=== PATIENT | female | born 1970 | race American Indian/Alaskan Native ===

== ENCOUNTER 2023-09-22 12:06 | Emergency (ER) | payer OTHER ==
[~2023-09-22] VITALS: Ht 167.6 cm; Wt 56.0 kg
[2023-09-22] MEDS ORDERED: GABAPENTIN300 MG PO (13:23)
[2023-09-22 15:26] VITALS: BP 109/79
== END 2023-09-22 15:27 | disposition home or self-care (01) ==
LOC: ED 12:06
DX: S93.402A Sprain of unspecified ligament of left ankle, initial encounter (principal); X50.9XXA Other and unspecified overexertion or strenuous movements or postures, initial encounter; Z79.899 Other long term (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
CPT/HCPCS: 73610; 99283

== ENCOUNTER 2023-11-21 22:07 | Emergency (ER) | payer OTHER ==
[~2023-11-21] VITALS: Ht 167.6 cm; Wt 44.3 kg
[~2023-11-21 22:07] MED LIST: GABAPENTIN300 MG PO
[2023-11-21] MEDS ORDERED: ALBUTEROL/IPRATROPIUM 3 ML NEB INH ONE (22:15)
[2023-11-21] MEDS ORDERED: methylPREDNISolone SOD SUCC 125 MG/2 ML VIAL IV ONE (22:15)
[2023-11-21] MEDS ORDERED: ondansetron HCL 4 MG/2 ML VIAL IV ONE (22:15)
[2023-11-21 22:25] LABS: BASOPHILS 1.2 % (0-2); EOSINOPHILS 1.6 % (0-6); HEMATOCRIT 30.8 % (35.0-50.0); HEMOGLOBIN 9.9 g/dL (12.0-18.0); LYMPHOCYTES 21.1 % (24-44); MCH 27.7 (27-36); MCHC 32.1 g/dl (30-36); MCV 86.3 fl (81-99); MONOCYTES 9.4 % (0-12); NEUTROPHILS 66.7 % (39-80); PLATELET COUNT 424 K/uL (140-440); RBC 3.57 M/ul (4.3-5.7); RDW 16.9 (10.5-15.0)
[2023-11-21 22:47] LABS: ALBUMIN 3.1 g/dL (3.4-5.0); ALBUMIN/GLOBULIN RATIO 0.91 (1.1-2.4); ANION GAP 16.5 (7-21); BILIRUBIN, TOTAL 1.1 ng/dL (0.2-1.0); BUN/CREATININE RATIO 11.34 (6.0-28.6); CALCIUM 8.4 mg/dL (8.5-10.1); CREATININE, SERUM 1.41 mg/dL (0.55-1.02); POTASSIUM 4.5 mmol/L (3.5-5.1); PROTEIN, TOTAL 6.5 g/dL (6.4-8.2)
[2023-11-22] MEDS ORDERED: FUROSEMIDE 20 MG/2 ML VIAL IV ONE (00:15)
[2023-11-22] MEDS ORDERED: LASIX20 MG PO (00:18)
[2023-11-22 00:31] VITALS: BP 124/96
== END 2023-11-22 01:25 | disposition home or self-care (01) ==
LOC: ED 22:07
PROVIDERS: Family Medicine
DX: I50.9 Heart failure, unspecified (principal); J44.9 Chronic obstructive pulmonary disease, unspecified; F17.200 Nicotine dependence, unspecified, uncomplicated
CPT/HCPCS: 36415; 71045; 80053; 83690; 83880; 85025; 94640; 96374; 96375; 99285-25; J1940; J2405; J2919; U0002

== ENCOUNTER 2023-12-07 14:33 | Inpatient (IN) | payer OTHER ==
[~2023-12-07] VITALS: Ht 167.6 cm; Wt 41.5 kg
[~2023-12-07 14:33] MED LIST changes: +LASIX20 MG PO
--- OUTSIDE RECORDS SUMMARY | 2023-12-07 14:34 | XMS ---
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 Josy has no Care Guidelines for this patient. Won VISIT COUNT (12 MO.) [facility] T[facility] NOTE: Visits indicate total known visits. [place] [place] [facility] COMPLAINT: - TROUBLE BREATHING 11/21/2023 22:08 K[facility]ISSA Powell [place] TYPE: Emergency COMPLAINT: - ABDOMINAL PAIN DIAGNOSES: - Chronic obstructive pulmonary disease, unspecified - Heart failure, unspecified - Nicotine dependence, unspecified, uncomplicated - Unspecified abdominal pain 09/22/2023 12:07 KARISSA Powell [place] TYPE: Emergency COMPLAINT: - LEFT LEG INJURY DIAGNOSES: - Other and unspecified overexertion or strenuous movements or postures, initial encounter - 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
[2023-12-07] MEDS ORDERED: NITROGLYCERIN 0.4 MG SUBL SL PRN (15:00)
[2023-12-07 15:07] LABS: EOSINOPHILS 0.6 % (0-6); HEMOGLOBIN 10.6 g/dL (12.0-18.0); MCH 26.8 (27-36); MCHC 32.1 g/dl (30-36); MCV 83.6 fl (81-99); MONOCYTES 6.4 % (0-12); PLATELET COUNT 346 K/uL (140-440); RBC 3.95 M/ul (4.3-5.7); RDW 17.5 (10.5-15.0)
[2023-12-07 15:18] LABS: INR 1.16 (0.80-1.30); PROTIME 14.4 Sec (11.2-14.2)
[2023-12-07 15:20] LABS: PARTIAL THROMBOPLASTIN TIME 29.7 Sec (22.9-41.3)
[2023-12-07 15:35] LABS: ALBUMIN 3.1 g/dL (3.4-5.0); ALBUMIN/GLOBULIN RATIO 0.89 (1.1-2.4); ANION GAP 14.4 (7-21); BILIRUBIN, TOTAL 1.4 ng/dL (0.2-1.0); BUN/CREATININE RATIO 16.19 (6.0-28.6); CALCIUM 8.7 mg/dL (8.5-10.1); CREATININE, SERUM 1.05 mg/dL (0.55-1.02); POTASSIUM 4.4 mmol/L (3.5-5.1); PROTEIN, TOTAL 6.6 g/dL (6.4-8.2)
[2023-12-07] MEDS ORDERED: methylPREDNISolone SOD SUCC 125 MG/2 ML VIAL IV ONE (17:00)
[2023-12-07] MEDS ORDERED: ALBUTEROL/IPRATROPIUM 3 ML NEB INH ONE ×2 (17:00→17:45)
[2023-12-07] MEDS ORDERED: FUROSEMIDE 40 MG/4 ML VIAL IV ONE (19:15)
[2023-12-07] MEDS ORDERED: ENOXAPARIN SODIUM 40 MG/0.4 ML SYR SUB-Q SCH (20:22)
[2023-12-07] MEDS ORDERED: ACETAMINOPHEN 500 MG TAB PO PRN (20:30)
[2023-12-07] MEDS ORDERED: ondansetron HCL 4 MG/2 ML VIAL IV PRN (20:30)
[2023-12-07] MEDS ORDERED: MELATONIN 3 MG TAB PO PRN (21:00)
--- NOTE | 2023-12-07 21:43 | NUR ---
pt ARRIVED TO MS FLOOR AT THIS TIME, ADMISSION COMPLETE AND pt RESTING IN BED, BED ALARM ON AND CALL LIGHT IN REACH. FAMILY IN ROOM AND PREPARING TO LEAVE FOR THE NIGHT- pt DENIES ADDITIONAL NEEDS OR CONCERNS. DR GAMA NOW IN ROOM AND ASSESSING pt.
--- NOTE | 2023-12-07 21:43 | NUR ---
REPORT RECEIVED FROM ED RN. PATIENT TRANSFERED FROM TO BED WITH 1 PA STAND BY ASSIST. no REPORTS OF SOB AT THIS TIME. PATIENT VSS. FAMILY AT BEDSIDE.
[2023-12-07 21:44] VITALS: BP 115/83; BP 117/82
--- NOTE | 2023-12-07 22:37 | NUR ---
call light answered, prn zofran given-see emar. ayla in room to help pt to bsc.
[2023-12-07] MEDS ORDERED: TRAZODONE HCL 50 MG TAB PO PRN (22:45)
--- NOTE | 2023-12-07 22:55 | NUR ---
PATIENT RESTIN IN BED, REPORTS PAIN IN CHEST 2/10 AT THIS TIME. PATIENT REPORTS PAIN IN CHEST IS TOLLERABLE AND "ONLY BOTHERS ME WHEN I COUGH." SKIN INTACT, TATTOO NOTED TO LEFT FOREARM. LUNG SUNDS WITH CRACKLES NOTED IN LEFT UPPER LOBE, DIMINISHED THOUGHOUT. RESPIRATORY DRIVE IS EVEN AND UNLABORED. BOWEL TONES ACITVE X 4. REPORTS LAST BM WAS TODAY IN EMERGENCY ROOM. NO NOTED EDEMA UPON ASSESSMENT. NO FURTHER NEEDS AT THIS TIME, CALL LIGHT WITHIN REACH.
--- NOTE | 2023-12-07 23:35 | NUR ---
CALL LIGHT ANSWERED. PT NEEDED TO USE BATHROOM. WRINKLE CHASER SBA PT TO BSC. PT VOIDED AND WAS ASSISTED BACK TO BED. OUTPUT MEASURED AND PT STATES NO FURTHER NEEDS AT THIS TIME. CALL LIGHT WITHIN REACH AND BED ALARM ON.
[2023-12-08] VITALS (9 sets, daily range): BP systolic 101–111; BP diastolic 68–78
--- NOTE | 2023-12-08 01:27 | NUR ---
MEDICAL REVIEW SPECIALIST OBTAINED VITALS AND I&O. PT STATES NO FURTHER NEEDS AT THIS TIME. CALL LIGHT WITHIN REACH.
--- NOTE | 2023-12-08 02:01 | NUR ---
CALL LIGHT ANSWERED. PATIENT ASSISTED TO BSC 1PA ASSIST. TOLLERATED WELL. REPORTS, " MY BREATHING IS BETTER." PATIENT VOIDING QUANITY SUFFICIENT. NO FURTHER NEEDS AT THIS TIME. CALL LIGHT WITHIN REACH.
--- NOTE | 2023-12-08 02:05 | NUR ---
PATIENT'S MEWS SCORE INDICATED MD SHOULD BE NOTIFIED OF VITALS. MD AWARE OF PATIENT'S TACHYCARDIA, MD WAS ON UNIT EARILER IN SHIFT UPON ADMIT TO ASSESS PATIENT. NO CHANGES NOTED TO VITALS SENSE ADMIT TO THIS UNIT.
--- NOTE | 2023-12-08 03:55 | NUR ---
PATIENT RESTING IN BED WITH EYES CLOSED. RESPRIATIONS EVEN AND UNLABORED. CALL LIGHT WITHIN REACH. BED ALARM ON.
[2023-12-08 05:33] LABS: BASOPHILS 1.1 % (0-2); HEMATOCRIT 34.2 % (35.0-50.0); HEMOGLOBIN 10.9 g/dL (12.0-18.0); LYMPHOCYTES 18.9 % (24-44); MCH 26.3 (27-36); MCHC 31.9 g/dl (30-36); MCV 82.4 fl (81-99); MONOCYTES 2.1 % (0-12); NEUTROPHILS 77.9 % (39-80); PLATELET COUNT 376 K/uL (140-440); RBC 4.15 M/ul (4.3-5.7); RDW 17.2 (10.5-15.0)
[2023-12-08 05:43] LABS: ANION GAP 15.8 (7-21); BUN/CREATININE RATIO 16.66 (6.0-28.6); CALCIUM 9.2 mg/dL (8.5-10.1); CREATININE, SERUM 1.2 mg/dL (0.55-1.02); MAGNESIUM 2.2 mg/dL (1.8-2.4); POTASSIUM 4.8 mmol/L (3.5-5.1)
--- NOTE | 2023-12-08 06:04 | NUR ---
PATIENT RESTING IN BED WITH EYES CLOSED. RESPIRATIONS EVEN AND UNLABORED. LUNG SOUNDS CORASE WITH CRACKLES NOTED IN UPPER LOBES, DIMINISHED LOWER LOBES. PATIENT DENIES ANY SOB AT THIS ITME. WORK OF BREATHING APPEARS TO BE WNL. PATIENT VSS, HR REMAINS TACHY. DENIES ANY CHEST PAIN AT THIS TIME. FRESH ICE WATER REQUESTED, FRESH ICE WATER GIVEN. CALL LIGHT WITHIN REACH, BED ALARM ON.
--- NOTE | 2023-12-08 06:58 | NUR ---
Pt report received from ELIZABETH Sears. Pt is in bed, supine, A&O x4. White board updated. Pt denies needs at this time. Side rails up, bedside table in reach, call light in reach.
[2023-12-08] MEDS ORDERED: ALBUTEROL SULFATE 0.042% 1.25 MG/3 ML VIAL INH PRN (07:45)
--- NOTE | 2023-12-08 08:36 | NUR ---
In with pt for assessment. SBA pt up to BSC to void. Instructed pt on how to collect a clean urine specimen. Pt verbalized understanding of how to collect. Pt was advised that ECHO would be here at 0915. Pt states that her medical records can be located at [facility] in [place], not [facility]. Pt provided with an orange juice for now. Pt has a dry sounding cough. LCTA but dim in RLL. Call light in reach.
--- NOTE | 2023-12-08 08:46 | NUR ---
MEDICAL RECORDS REQUESTED FROM [facility] [place] AT THIS TIME
[2023-12-08 08:51] LABS: BILIRUBIN, URINE NEGATIVE (negative); BLOOD/HGB, URINE NEGATIVE (Negative); KETONE, URINE NEGATIVE (Negative); LEUK ESTERASE, URINE NEGATIVE (negative); NITRITE, URINE NEGATIVE (negative)
[2023-12-08 08:58] LABS: BACTERIA, URINE 4+ /hpf (negative); CASTS, URINE NONE SEEN \\lpf; COLLECTION TYPE, URINE CLEAN CATCH; CRYSTALS, URINE NONE SEEN (0-1+); EPITHELIAL CELLS, URINE SQUAMOUS 2+ /lpf (0-1+); RED BLOOD CELLS, URINE 0-1 /hpf (0-5); REFLEX CULTURE, URINE No (No)
[2023-12-08] MEDS ORDERED: FUROSEMIDE 40 MG/4 ML VIAL IV SCH (09:00)
--- NOTE | 2023-12-08 09:39 | NUR ---
CHARGE NURSE CRISTELA TOBIN PASSED ON MY CONCERN ABOUT NO TELE ON THIS PT TO DR. GAMA WHO OKAY'D AN ORDER FOR TELE FOR HER.
--- NOTE | 2023-12-08 09:54 | NUR ---
UR CLINICAL REVIEW: [facility] [place] INPT FOR HEARTFAILURE BASIC DMAP (STATE MEDICAID) INPT 12/07/23 @ 2021 ORDER MATCHES STATUS AUTH PENDING, WILL SEND REQUIRED CLINICALS VIA RIGHTFAX PLAN TO DC HOME WHEN STABLE 12/10/23
--- NOTE | 2023-12-08 10:23 | NUR ---
tele #1 placed on pt
--- NOTE | 2023-12-08 11:51 | NUR ---
MED REC COMPLETE
[2023-12-08] MEDS ORDERED: PHARMACY RENAL DOSE ADJUSTMENT 1 DOSE MISC PO SCH (12:00)
--- NOTE | 2023-12-08 12:29 | EKG ---
[facility] [address] [place], [place] [address] Signed Sinus tachycardia with fusion complexes Possible Left atrial enlargement Right bundle branch block Left posterior fascicular block Bifascicular block Abnormal ECG No previous ECGs available Confirmed by Mathew Gama MD ([id number]) on 12/08/2023 12:29:14 PM Electronically Signed By: MATHEW GAMA DO 12/08/23 1229 PATIENT NAME: HERMES RING JESSICA Electrocardiogram DATE OF : 66 PHYSICIAN: MATHEW GAMA DO REPORT #: [id number] REPORT IS CONFIDENTIAL AND NOT TO BE RELEASED WITHOUT AUTHORIZATION
--- NOTE | 2023-12-08 13:30 | NUR ---
Spoke with Debbie. She states she is from [facility], but is also [place]. She now lives here with her daughter and is enrolled with [employer]. They live in an apartment and pt states she does not use any DME. Their is a shower bench in her daughters shower. Pt denies issues getting in or out of the home. Daughter has a child and is and due any day now. Pt concerned this is a "poor time for her to be in the hospital". She does state she needs a walker as it is getting difficult for her to walk any distance. She states she easily becomes sob. She is interested in filing for disability and told her how to do so on line. She states she can do this on her phone. Let her know she will need to go through her pcp. Pt states she has financial issues and gets food stamps. She states they run out of food monthly. She is unsure if she qualifies for commodities through the [employer]. I will check with for a walker and the [employer] if she qualifies. She denies other needs.
[2023-12-08] MEDS ORDERED: GUAIFENESIN/DEXTROMETHORPHAN 5 ML SYRUP PO PRN (13:45)
--- NOTE | 2023-12-08 14:56 | NUR ---
GAVE PT ROBITUSIN PER ORDER AND PT HAD SCANT EMESIS. PT STATED "IT DOES THIS TO ME SOMETIMES". CALL LIGHT WITHIN REACH
--- NOTE | 2023-12-08 15:00 | NUR ---
Called and spoke with DCF at the [facility]. They checked for pts enrollment and she does qualify for food commodities. The next date is Dec 14 from 3-[address] Murphy signed and RX for a 4ww and I sent to [facility] at pts request. Gave the pt the time and place to chart picker commodities and she states she knows where to go. She denies other needs.
[2023-12-08] MEDS ORDERED: BENZONATATE 100 MG CAP PO PRN (15:30)
--- NOTE | 2023-12-08 16:00 | NUR ---
In with pt for med administration per emar and PRN tylenol for pain in ribs when coughing. Pt is awake, resting on her right side, watching a show on her cell phone. She is alert and oriented. She only seems to cough with activity or when she is speaking. She is able to speak in full and complete sentences, although short sentences, and then she coughs in between, a harsh dry sounding cough. Pt denies any pain at the moment but states when she gets up to move around, she starts to have pain in her ribs. Pt's iced water refreshed, denies further needs at this time. Call light in reach.
--- NOTE | 2023-12-08 17:00 | NUR ---
CHF EDUCATION COMPLETED. PT PROVIDED WITH CHF DISCHARGE PACKET AND RESOURCES. PT EDUCATED ON MEDICATION ADMINISTRATION, LOW SODIUM DIET, PHYSICAL EXERCISE, DAILY WEIGHTS, AND FLUID RESTRICTION. PT AND FAMILY VERBALIZED UNDERSTANDING.
--- NOTE | 2023-12-08 18:35 | NUR ---
Gave a patient a new hot pack for stomach and a warm blanket. Assisted patient to commode. Patient has no other request or needs at this time. Patient resting in bed eyes closed.
--- NOTE | 2023-12-08 20:46 | NUR ---
AUTOMOTIVE GLAZIER OBTAINED VITALS AND INTAKE. NO NEW OUTPUT AT THIS TIME. PT STATES NO NEEDS AT THIS TIME. CALL LIGHT WITHIN REACH.
--- NOTE | 2023-12-08 21:06 | NUR ---
pT AWAKE, ALERT AND ORIENTED, TURNS AND REPOSITIONS SELF IN BED, ON ROOM AIR, LUNGS CLEAR UPPER AND FAINT CRACKLES AT BASES, MOIST NON PRODUCTIVE COUGH PRESENT. TELE#[address] SINUS TACHY AT 119, DENIES C/O CP. ABD SOFT, LBM 12/07. SL RFA PATENT. LONG MYCOTIC TOE NAILS. NO C/O PAIN OR SOB. COOPERATIVE WITH ASSESSMENT, JELLO AND PUDING GIVEN ON REQUEST
[2023-12-09] VITALS (10 sets, daily range): BP systolic 97–120; BP diastolic 69–82
--- NOTE | 2023-12-09 00:07 | NUR ---
Resting, eyes closed, no s/sx distress. on room air. turns and repositions self in bed. Tele#[address] Sinus Tachy HR 115-121
--- NOTE | 2023-12-09 01:11 | NUR ---
CONFERENCE CONCIERGE OBTAINED VITALS AND INTAKE. NO NEW OUTPUT AT THIS TIME. PT STATES NO NEEDS AND CALL LIGHT IS WITHIN REACH. BED ALARM ON.
--- NOTE | 2023-12-09 02:19 | NUR ---
RESTING, EYES CLOSED, NO S/SX DISTRESS, TELE#[address] SINUS TACHY AT 114.
--- NOTE | 2023-12-09 03:01 | NUR ---
CALL LIGHT ANSWERED. PT NEEDED TO USE BATHROOM. MANAGER CARGO SBA TO BSC. PT VOIDED AND WAS ASSSITED BACK TO BED. PT COMPLAINED OF RIGHT SIDE PAIN. RN NOTIFED. PT GIVEN JELLO UPON REQUEST. PT STATES NO FURTHER NEEDS AT THIS TIME. CALL LIGHT WITHIN REACH.
--- NOTE | 2023-12-09 03:04 | NUR ---
UP TO BSC, VOIDED, BACK TO BED, TOLERATED WELL. C/O RIB PAIN AND COUGH. MEDICATED WITH TYLENOL 500MG PO AND TESSALON PERLES. JELLO GIVEN ON REQUEST. PLEASANT AND COOPERATIVE WITH ASSESSMENT. TELE#[address] HR111
--- NOTE | 2023-12-09 04:16 | NUR ---
RESTING, EYES CLOSED, NO S/SX DISTRESS, ON ROOM AIR, NO FURTHER C/O COUGH OR RIB PAIN. TELE#[address] 110 HR
[2023-12-09 05:47] LABS: ANION GAP 11.2 (7-21); BUN/CREATININE RATIO 24.79 (6.0-28.6); CALCIUM 8.5 mg/dL (8.5-10.1); CREATININE, SERUM 1.21 mg/dL (0.55-1.02); MAGNESIUM 1.9 mg/dL (1.8-2.4); POTASSIUM 4.2 mmol/L (3.5-5.1)
--- NOTE | 2023-12-09 06:27 | NUR ---
AWAKENS EASILY, NO C/O PAIN, CONTINUES TO HAVE OCASSIONAL DRY NON PRODUCTIVE COUGH. ON ROOM AIR, LUNGS NO CHANGES. SLIGTH SOB EARLIER WHEN UP TO BSC, RECUPERATED EASILY. COOPERATIVE WITH VITALS. TELE#[address]
--- NOTE | 2023-12-09 07:08 | NUR ---
Pt report received from ELIZABETH Tello at about 0658 hours.
--- NOTE | 2023-12-09 07:28 | NUR ---
In to update white board. Pt is asleep in bed, resting on right side, breathing is regular, even, and non-labored. Call light in reach.
--- NOTE | 2023-12-09 09:09 | NUR ---
PATIENT IN BED AT THIS TIME. CALL LIGHT WITHN REACH, NO FURTHER NEEDS AT THIS TIME.
[2023-12-09] MEDS ORDERED: lisinopriL 2.5 MG TABLET PO SCH (09:15)
--- NOTE | 2023-12-09 10:16 | NUR ---
In with pt for med administration per emar (late). Pt is tearful about lovenox injection but agrees to receive it. She states it "hurts" because she doesn't have much fat on her. Systolic BP is 101. Advised Dr. Monaco who said to hold lisinopril until we recheck her BP and it is above 110 systolic.
--- NOTE | 2023-12-09 10:44 | NUR ---
PC to pharmacy, spoke with Luiz, to request today's dose of zestril be retimed to 12pm to give the pt some time for her systolic BP to increase from 101 to above 110, per Dr. Monaco.
--- NOTE | 2023-12-09 10:52 | NUR ---
PT NOT AVAILABLE FOR VISIT. PROVIDED PRAYER.
--- NOTE | 2023-12-09 10:57 | NUR ---
Nutrition consult for BMI of 14.5. Patient also has a new dx of CHF. She states she doesn't feel she has been losing weight but she also doesn't weigh herself regularly. She did receive low-sodium diet education from [employer] air conditioning specialist, yesterday. She said her daughter is already starting to clean out the cupboards at her house. Patient also said she would like OJ with breakfast. No fluid restriction in place at this time. She has no other questions or concerns at this time.
--- NOTE | 2023-12-09 11:21 | NUR ---
Pt up, ambulating the hallway using FWW with physical therapist. Pt, as soon as she gets to the door to exit her room, states, "See, I'm already getting tired". Physical therapist had the pt take a standing rest break, and the pt was able to complete a short loop without issue. Pt is back in bed, with the understanding that she will be up in the chair for lunch and dinner and will ambulate the hallway two more times this shift with nurses or aides. Pt verbalized understanding. VS obtained. Pt systolic still below 110. Call light in reach. Pt states she is tired. She is watching shows on her cell phone.
--- NOTE | 2023-12-09 12:30 | NUR ---
Spoke with pt. She is tearful and concerned about heart failure. Her daughter 2 years ago from heart failure. Pt's daughter brought her a walker out of pocket. She will return as walker was ordered from [facility]. Pt denies any needs. May go home tomorrow. Will dc with family.
[2023-12-09] MEDS ORDERED: ALBUTEROL SULFATE 0.083% 3 ML VIAL INH PRN (15:15)
--- NOTE | 2023-12-09 15:25 | NUR ---
PATIENT IN BED AT THIS TIME. CALL LIGHT WITHIN REACH, NO FURTHER NEEDS AT THIS TIME.
--- NOTE | 2023-12-09 16:30 | NUR ---
PATIENT RESTING IN BED AT THIS TIME. CADASTRAL ENGINEER ASSISTED PATIENT IN GETTING TO THE COMMODE, CADASTRAL ENGINEER CHARTED VOIDINGS ON CHART IN ROOM. PATIENT ALSO REQUESTED AN ORANGE JUICE, CADASTRAL ENGINEER CHECKED WITH RN. CALL LIGHT WITHIN REACH, NO FURTHER NEEDS AT THIS TIME.
--- NOTE | 2023-12-09 16:43 | NUR ---
Pt up ambulating hallway using her personal walker, accompanied by lula Amos, and pt's family. Pt is tolerating ambulation well, although, she complains of being tired.
--- NOTE | 2023-12-09 19:36 | NUR ---
REPORT RECIEVED FROM DAY SHIFT RN. PATIENT RESTING IN BED, DENIES NEEDS AT THIS TIME. CALL LIGHT IN REACH.
--- NOTE | 2023-12-09 19:52 | NUR ---
TELE LEAD OFF. BANQUET KITCHEN SUPERVISOR CHANGED ELECTRODES AND ENSURED CORRECT PLACEMENT. PT STATES NO NEEDS AT THIS TIME. CALL LIGHT WITHIN REACH.
--- NOTE | 2023-12-09 21:06 | NUR ---
BLUNGER OBTAINED VITALS AND INTAKE. NO NEW OUTPUT AT THIS TIME. PT STATES NO FURTHER NEEDS AT THIS TIME. CALL LIGHT WITHIN REACH. BED ALARM ON.
--- NOTE | 2023-12-09 21:30 | NUR ---
PATIENT RESTING IN BED, WATCHING HER PHONE. NASAL SWAB OBTAINED AND SENT TO LAB. ASSESSMENT COMPLETE. PATIENTS IV PAINFUL TO FLUSH. MD ON FLOOR AND GIVES VERBAL ORDER FOR NO IV TO BE OK AT THIS TIME. PATIENT HAS NO FURTHER NEEDS. CALL LIGHT IN REACH.
--- NOTE | 2023-12-09 22:08 | NUR ---
THIS RN REMOVED PATIENT IV. IV DCd WNL WITH TIP INTACT. PATIENT UP TO BATHROOM TO VOID WITH VERY MINIMAL SBA. PATIENT BACK TO BED. BED ALARM ON FOR SAFETY. ORANGE JUICE PROVIDED PER REQUEST. NO FURTHER NEEDS. CALL LIGHT IN REACH.
--- NOTE | 2023-12-09 23:29 | NUR ---
PATIENT RESTING IN BED, DENIES NEEDS AT THIS TIME. CALL LIGHT IN REACH.
[2023-12-10] VITALS (11 sets, daily range): BP systolic 11–116; BP diastolic 65–83
--- NOTE | 2023-12-10 01:04 | NUR ---
PATIENT RESTING IN BED ON LEFT SIDE WITH EYES CLOSED. RESPIRATIONS EVEN AND UNLABORED. CALL LIGHT IN REACH.
--- NOTE | 2023-12-10 01:34 | NUR ---
CALL LIGHT ANSWERED. PT NEEDED TO USE THE BATHROOM. DATA COLLECTION SPECIALIST SBA PT TO BATHROOM. PT VOIDED AND ASSISTED BACK TO BED. DATA COLLECTION SPECIALIST OBTAINED AND DOCUMENTED VITALS AND I&O. PT STATES NO FURTHER NEEDS AT THIS TIME. CALL LIGHT WITHIN REACH.
--- NOTE | 2023-12-10 03:03 | NUR ---
PATIENT RESTING IN BED ON BACK WITH EYES CLOSED. RESPIRATIONS EVEN AND UNLABORED. CALL LIGHT IN REACH.
--- NOTE | 2023-12-10 03:14 | NUR ---
CALL LIGHT ANSWERED. PT NEEDED TO USE BATHROOM. CUSTOMER SUPPORT ENGINEER SBA PT TO BATHROOM. PT VOIDED AND ASSISTED BACK TO BED. OUTPUT MEASURED. PT STATES NO FURTHER NEEDS AT THIS TIME. CALL LIGHT WITHIN REACH AND BED ALARM ON.
[2023-12-10 05:14] LABS: BASOPHILS 1.3 % (0-2); EOSINOPHILS 0.6 % (0-6); HEMATOCRIT 32.6 % (35.0-50.0); HEMOGLOBIN 10.2 g/dL (12.0-18.0); MCH 26.2 (27-36); MCHC 31.5 g/dl (30-36); MCV 83.2 fl (81-99); MONOCYTES 5.8 % (0-12); NEUTROPHILS 77.3 % (39-80); PLATELET COUNT 354 K/uL (140-440); RBC 3.91 M/ul (4.3-5.7); RDW 17.4 (10.5-15.0)
[2023-12-10 05:25] LABS: ANION GAP 9.9 (7-21); BUN/CREATININE RATIO 18.47 (6.0-28.6); CALCIUM 8.4 mg/dL (8.5-10.1); CREATININE, SERUM 0.92 mg/dL (0.55-1.02); POTASSIUM 3.9 mmol/L (3.5-5.1)
--- NOTE | 2023-12-10 06:37 | NUR ---
IS GIVEN TO PATIENT WITH EDUCATION PROVIDED. PATIENT VERBILIZES UNDERSTANDING.
--- NOTE | 2023-12-10 07:56 | NUR ---
RECEIVED REPORT FROM [facility] NURSE. PT IS SITTING UP IN CHAIR, A/O, EATING BREAKFAST. DENIES NEEDS ATT. CALL LIGHT WITHIN REACH.
--- NOTE | 2023-12-10 08:19 | NUR ---
PATIENT IN CHAIR AT THIS TIME. POTATO CHIP PROCESSING SUPERVISOR ASSISTED PATIENT INTO CHAIR. CALL LIGHT WITHIN REACH, NO FURTHER NEEDS AT THIS TIME.
--- NOTE | 2023-12-10 10:50 | NUR ---
PAMELAT IN BED AT THIS TIME. NUT SHELLER ASSISTED PATIENT TO THE BEDSIDE COMMODE. NUT SHELLER ALSO PROVIDED FRESH ICE WATER. CALL LIGHT WITHIN REACH, NO FURTHER NEEDS AT THIS TIME.
--- NOTE | 2023-12-10 11:12 | NUR ---
rounded on pt. pt is awake in bed, a/o, respirations even and regular. denies needs att.
--- NOTE | 2023-12-10 12:01 | NUR ---
rounded on pt. pt is sitting up in chair eating lunch. Therapy reported that pt has been c/o abdominal pain. Pt states that she feels like it is from coughing. Bowel sounds active x4. Pt denies cramping. Abdomen is nondistended. Will continue to monitor.
--- NOTE | 2023-12-10 12:51 | NUR ---
PATIENT IN BED AT THIS TIME. [employer] TRUCK DRIVER ASSISTED PATIENT IN MOVING FROM CHAIR BACK TO HER BED. CALL LIGHT WITHIN REACH, NO FURTHER NEEDS AT THIS TIME.
--- NOTE | 2023-12-10 15:30 | NUR ---
SCD'S APPLIED. PT IS A/O, RESPIRATIONS EVEN AND REGULAR. VISITORS AT BEDSIDE. PT HAS BEEN PERIODICALLY TEARFUL ABOUT DIAGNOSIS. STATES SHE FEELS SUPPORTED BY HER FAMILY. DENIES NEEDS ATT.
--- NOTE | 2023-12-10 16:46 | NUR ---
rounded on pt. pt is a/o, respirations even and regular. RT at bedside. call light within reach.
--- NOTE | 2023-12-10 18:26 | NUR ---
MEWS score of 3. MD is aware that pt is chronically tachycardic. Pt is on tele. call light within reach. Family is at bedside.
--- NOTE | 2023-12-10 19:04 | NUR ---
CODING QUALITY ANALYST ASSISTED PATIENT IN WALKING 2 LAPS AROUND IN HALLS. CALL LIGHT WITHIN REACH, NO FURTHER NEEDS AT THIS TIME.
--- NOTE | 2023-12-10 19:17 | NUR ---
REPORT RECEIVED FROM DAY SHIFT RN. PT LYING IN BED ALERT AND ORIENTED. DENIES NEEDS. VISITOR IN ROOM. WHITE BOARD UPDATED. CALL LIGHT IN REACH.
--- NOTE | 2023-12-10 20:10 | NUR ---
IN TO CHECK VS, REPLACED TELE LEAD IT WAS OFF THE PT, PT HAS NO FURTHER NEEDS AT THIS TIME, RECEIVING A BREATHING TX FROM RT
--- NOTE | 2023-12-10 21:15 | NUR ---
ASSISTED PT TO AMBU IN THE HALLWAY, SBA WITH 4WW, PT ABLE TO TOLARATE TWO HALF LAPS IN THE Med/Surg HALLWAY W/O ISSUE, PT BACK TO ROOM, SCDS BACK IN PLACE FOR PT, NO FURTHER NEEDS AT THIS TIME, BON. IN RM TO VISIT WITH PT
--- NOTE | 2023-12-10 21:44 | NUR ---
EVENING ASSESSMENT COMPLETE. PT DENIES PAIN OR NAUSEA. UP TO BR WITH MINIMAL ASSIST TO VOID. BACK TO BED, ROGERS WELL. GAIT STEADY. PT DENIES SOB WITH ACTIVITY. RESPIRATIONS EVEN. LUNGS CLEAR THROUGHOUT. TELE #[address] HR ONE TEENS. DAUGHTER AT BEDSIDE. PT DENIES QUESTIONS OR CONCERNS. CALL LIGHT IN REACH.
[2023-12-11] VITALS (10 sets, daily range): BP systolic 100–112; BP diastolic 66–83
--- NOTE | 2023-12-11 00:14 | NUR ---
in to assist pt to the toilet, sba 4ww, back to bed, last 300ml water given, no further needs
--- NOTE | 2023-12-11 02:00 | NUR ---
IN TO ASSIST PT TO THE TOILET, BACK TO BED, VS CHECKED, NO FURTHER NEEDS AT THIS TIME
--- NOTE | 2023-12-11 02:07 | NUR ---
PT UP WITH RAM PRESS OPERATOR ASSIST. ASSESSMENT COMPLETE. PT DENIES SOB. SpO2 100% ON RA. LUNGS CLEAR THROUGHOUT. TELE #[address] HR ONE TEENS. PT DENIES NEEDS. CALL LIGHT IN REACH.
--- NOTE | 2023-12-11 04:22 | NUR ---
PT RESTING IN BED WITH EYES CLOSED. RESPIRATIONS EVEN. CALL LIGHT IN REACH.
[2023-12-11 05:36] LABS: BASOPHILS 0.7 % (0-2); EOSINOPHILS 1.7 % (0-6); HEMATOCRIT 32.1 % (35.0-50.0); HEMOGLOBIN 10.4 g/dL (12.0-18.0); LYMPHOCYTES 19.6 % (24-44); MCH 26.5 (27-36); MCHC 32.3 g/dl (30-36); MCV 82.1 fl (81-99); MONOCYTES 7.3 % (0-12); NEUTROPHILS 70.7 % (39-80); PLATELET COUNT 397 K/uL (140-440); RBC 3.91 M/ul (4.3-5.7); RDW 17.4 (10.5-15.0)
--- NOTE | 2023-12-11 05:43 | NUR ---
PT RESTING WITH EYES CLOSED. AWAKENS EASILY. VS AND DAILY WEIGHT OBTAINED. DRY COUGH NOTED. PT REQUESTING PRN NEB TX. RT NOTIFIED. NO FURTHER NEEDS.
[2023-12-11 05:44] LABS: BUN/CREATININE RATIO 18.08 (6.0-28.6); CALCIUM 8.3 mg/dL (8.5-10.1); CREATININE, SERUM 0.94 mg/dL (0.55-1.02)
--- NOTE | 2023-12-11 06:40 | NUR ---
CALL LIGHT ANSWERED. PT UP TO BR WITH FWW TO VOID. GAIT STEADY. BACK TO BED, ROGERS WELL. DENIES SOB WITH ACTIVITY. SCD'S IN PLACE. NO FURTHER NEEDS.
--- NOTE | 2023-12-11 06:58 | NUR ---
REPORT RECEIVED WITH ELIZABETH RAYO FROM ELIZABETH BRUNO. PATIENT AWAKE IN BED, BREATHING EVEN AND UNLABORED. PATIENT STATES THEY WOULD LIKE TO SHOWER TODAY. PATIENT DENIES ADDITIONAL NEEDS AT THIS TIME, CALL LIGHT IN REACH.
--- NOTE | 2023-12-11 06:58 | NUR ---
Pt report received from ELIZABETH Hodge. Pt is resting, supine, in bed, awake, states that she just had a breathing treatment about an hour ago and that they help her feel better. She would like to take a shower today and states that she walked 3 laps yesterday. She plans to walk again today. Side rails up, call light in reach.
--- NOTE | 2023-12-11 08:19 | NUR ---
BOARD HAS BEEN UPDATED AND CALL LIGHT HAS BEEN PLACED WITHIN REACH
[2023-12-11] MEDS ORDERED: METOPROLOL TARTRATE 25 MG TAB PO SCH (09:00)
[2023-12-11 09:08] LABS: PROCALCITONIN 0.06 ng/mL (())
--- NOTE | 2023-12-11 12:05 | NUR ---
Patient wanted to walk and do laps before lunch. We did two laps around the nurse station. Oximeter read her O2 levels and heart rate. No complaints of shortness of breath just weakness. Patient was then put back in bed. I offered her to eat lunch in her recliner. Patient would like to eat in bed at this time.
--- NOTE | 2023-12-11 14:22 | NUR ---
Patient appeared to be in a upset when i walking in regards of paper work. I notified the nurse. Patient also took a shower and felt better. No request from patient at this time
--- NOTE | 2023-12-11 15:18 | NUR ---
PC to respiratory therapist, Clifton, to advise him of the pt's request for a neb tx. He stated he will be right down.
--- NOTE | 2023-12-11 16:14 | NUR ---
Pt ambulating hallway using FWW with district administrative assistant, Peri. Tolerating the walk well. Completed 2 laps of the short route.
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
--- NOTE | 2023-12-11 17:18 | NUR ---
Patient mentioned feeling hot on her head , I checked patient tempeture, normal temperture. nurse has been notified
--- NOTE | 2023-12-11 17:33 | NUR ---
Pt's daughter, son-in-law, and grandbaby here to visit with pt. Pt's daughter came to nurse's station to ask if they could ambulate her mother around the nurse's stations. Pt was set up for walking by Tae Garcia.
--- NOTE | 2023-12-11 17:45 | NUR ---
Pt has no had any c/o shortness of breath this shift, has been up using FWW with staff and family to ambulate the hallways 3 times this shift, and had a shower. She has been, at times, using the call light then getting back to bed before we can assist her from the bathroom, or just not using the call light. Reinforcement of the importance of using the nurse call light and waiting for staff was done throughout the shift. Pt was given tessalon perles once this shift for increasing cough and she requested neb treatments which she states make her feel better. Pt has been tearful and anxious at times about the results of her echocardiogram, which, she said, were provided to her by the doctor. Her family has been to visit her. She has been asking for coffee and orange juice even after it was explained to her that her fluid intake is limited (so she does not drink the fluids on her lunch and dinner trays).
--- NOTE | 2023-12-11 18:17 | NUR ---
Pt's son-in-law and grandson are running/jogging the hallways. The grandson is wearing only socks on his feet.
--- NOTE | 2023-12-11 19:24 | NUR ---
REPORT RECEIVED FROM DAY SHIFT RN. PT LYING IN BED RESTING WITH EYES CLOSED. RESPIRATIONS EVEN. CALL LIGHT IN REACH. WHITE BOARD UPDATED.
--- NOTE | 2023-12-11 19:31 | NUR ---
PT CALLS TO USE BR. SBA WITH FWW TO BR AND BACK TO BED. PT ASKS FOR POPCICLE, PROVIDED. PT STATES NO OTHER NEEDS AT THIS TIME. CALL LIGHT IN REACH.
--- NOTE | 2023-12-11 21:31 | NUR ---
EVENING ASSESSMENT COMPLETE. SCHEDULED MEDS ADMIN PER EMAR. PT DENIES PAIN OR NAUSEA. DENIES SOB. RA. LUNGS CLEAR THROUGHOUT. DRY COUGH NOTED. TELE #[address]. HR 100'S. PT UP TO BR WITH MINIMAL SBA TO VOID. GAIT STEADY. BACK TO BED, ROGERS WELL. DENIES QUESTIONS OR CONCERNS. CALL LIGHT IN REACH.
--- NOTE | 2023-12-11 22:36 | NUR ---
CALL LIGHT ANSWERED. PT TEARFUL. REPORTS BEING ASLEEP AND WAKING UP IN A PANIC. REQUESTING PRN FOR SLEEP, ADMIN PER EMAR. FAMILY IN ROOM. NO FURTHER NEEDS.
[2023-12-12] VITALS (9 sets, daily range): BP systolic 98–102; BP diastolic 60–72
--- NOTE | 2023-12-12 00:58 | NUR ---
PT RESTING IN BED WITH EYES CLOSED. RESPIRATIONS EVEN. CALL LIGHT IN REACH.
--- NOTE | 2023-12-12 02:24 | NUR ---
PT RESTING WITH EYES CLOSED. AWAKENS EASILY. VS OBTAINED, WNL. SpO2 100% ON RA. PT DENIES SOB. LUNGS CLEAR. HR 90-100'S. SCD'S PLACE. NO FURTHER NEEDS. FAMILY IN ROOM. CALL LIGHT IN REACH.
--- NOTE | 2023-12-12 04:15 | NUR ---
PT LYING IN BED ON LEFT SIDE WITH EYES CLOSED. RESPIRATIONS EVEN. TELE #[address] HR 102. BED ALRAM FOR SAFETY. CALL LIGHT IN REACH.
[2023-12-12 05:30] LABS: ANION GAP 10.7 (7-21); BUN/CREATININE RATIO 19.35 (6.0-28.6); CALCIUM 8.3 mg/dL (8.5-10.1); CREATININE, SERUM 0.93 mg/dL (0.55-1.02); POTASSIUM 4.7 mmol/L (3.5-5.1)
--- NOTE | 2023-12-12 05:53 | NUR ---
PT RESTING IN BED WITH EYES CLOSED. AWAKENS EASILY. UP TO BR WITH MINIMAL SBA AND FWW TO VOID. GAIT STEADY. DAILY WEIGHT OBTAINED. PT BACK TO BED, ROGERS WELL. NO FURTHER NEEDS. CALL LIGHT IN REACH. FAMILY IN ROOM.
--- NOTE | 2023-12-12 07:48 | NUR ---
Pt report received from ELIZABETH Hurt. Pt is resting under her personal blanket, in bed, her daughter, son-in-law, and grandson are in the room, grandson is squealing and making noises. White board updated. Side rails up x4, call light in reach.
[2023-12-12] MEDS ORDERED: FUROSEMIDE 40 MG TAB PO SCH (09:00)
[2023-12-12] MEDS ORDERED: SPIRONOLACTONE 25 MG TAB PO SCH (09:00)
--- NOTE | 2023-12-12 10:10 | NUR ---
Pt requesting PRN Travis tx. Called RT and spoke with Emilio Bell. He will come to administer this tx.
--- NOTE | 2023-12-12 10:30 | NUR ---
ADVISED BY RT JOSE Estrada THAT THE PT HAS RECEIVED HER BREATHING TX AND THAT HER LUNGS ARE "CRYSTAL CLEAR". IT SEEMS THOUGH SHE REQUESTS THEM FOR COMFORT SHE FEELS THOUGH THEY MAKE HER FEEL BETTER.
--- NOTE | 2023-12-12 11:46 | NUR ---
Patient called asking for a heat pack for their left hand.
--- NOTE | 2023-12-12 12:30 | NUR ---
SITTING UP IN BED. PATIENT'S NEW WALKER HAS BEEN DELIVERED AND IS CURRENTLY IN HER ROOM. SHE DENIES OTHER NEEDS FROM CASE MANAGEMENT AT THIS TIME. CONTINUES TO PLAN TO DC TO HOME WITH FAMILY.
--- NOTE | 2023-12-12 13:30 | NUR ---
Afer using the bathroom, patient requested to walk the floor. Two laps were taken and patient returned to bed.
--- NOTE | 2023-12-12 13:47 | NUR ---
UR CONCURRENT REVIEW: MCG-DOES NOT MEET GL DAY 2. CARENRANCE COMPLETED BASIC DMAP INPT 12/07/23 @2027 DISCHARGE PENDING IN 24 TO 48 HOURS. 12/14/23
--- NOTE | 2023-12-12 14:37 | NUR ---
VISITED DURING SPIRITUAL CARE ROUNDS. PT DENIED IMMEDIATE NEEDS, EXPRESSED CONFIDENCE IN CARE, HOPE FOR FULL RECOVERY. DIRECTOR LAW ENFORCEMENT PROVIDED SUPPORTIVE PRESENCE, HOSPITALITY, PRAYER. PT EXPRESSED GRATITUDE.
--- NOTE | 2023-12-12 16:42 | NUR ---
Advised by Dian mcbride that the pt is in the shower with tele on.
--- NOTE | 2023-12-12 16:43 | NUR ---
Advised CCU ELIZABETH Lewis, that this patient is up in the shower
--- NOTE | 2023-12-12 19:34 | NUR ---
REPORT RECEIVED FROM DAY SHIFT RN. PT LYING IN BED ALERT AND ORIENTED. UP TO BR WITH MINIMAL SBA TO VOID. GAIT STEADY. BACK TO BED. NO FURTHER NEEDS. WHITE BOARD UPDATED. CALL LIGHT IN REACH.
--- NOTE | 2023-12-12 20:24 | NUR ---
EVENING ASSESSMENT COMPLETE. METOPROLOL HELD THIS ABIODUN PER MD. PT WITH DRY COUGH. PRN FOR COUGH ADMIN PER EMAR. LUNGS CLEAR THROUGHOUT. SpO2 100% ON RA. TELE #[address]. HR 100'S. FAMILY IN ROOM. PT DENIES FURTHER NEEDS. CALL LIGHT IN REACH.
--- NOTE | 2023-12-12 22:37 | NUR ---
IN TO THE ROOM TO FIX TELE LEADS OFF AND CHANGED STICKER. PATIENT USED THE BATHROOM AND VOIDED 200ML YELLOW URINE. PATIENT IS BACK IN BED. NO OTHER NEEDS EXPRESSED AT THIS TIME. SON IN THE ROOM.
--- NOTE | 2023-12-12 23:10 | NUR ---
PT REQUESTING PRN FOR SLEEP. ADMINISTERED PER EMAR. PT DENIES PAIN OR NAUSEA. NO C/O SOB. TELE #[address] HR LOW 100'S. NO FURTHER NEEDS. SON TO STAY THE NIGHT. CALL LIGHT IN REACH.
--- NOTE | 2023-12-12 23:36 | NUR ---
PATIENT CALLED STATING I WANT TO USE THE BATHROOM BEFORE GOING TO SLEEP. THIS WORKERS COMPENSATION CLAIMS SUPERVISOR IN TO THE ROOM. SBA. PATIENT USE HER OWN WALKER. PATIENT VOIDED 200ML. PATIENT IS BACK IN BED. NO FURTHER NEEDS AT THIS TIME. SON IS SITTING ON THE CHAIR.
[2023-12-13] VITALS (13 sets, daily range): BP systolic 94–113; BP diastolic 61–84
--- NOTE | 2023-12-13 01:10 | NUR ---
CALL LIGHT ANSWERED. PT UP TO BR WITH MINIMAL ASSIST TO VOID. BACK TO BED, ROGERS WELL. GAIT STEADY. PT DENIES SOB. DRY COUGH IMPROVED AFTER PRN ADMIN. LUNGS CLEAR. VS OBTAINED. SCD'S IN PLACE. NO FURTHER NEEDS. CALL LIGHT IN REACH.
--- NOTE | 2023-12-13 03:13 | NUR ---
PT RESTING IN BED ON RIGHT SIDE. EYES CLOSED. SCD'S IN PLACE. HR ONE TEENS ON TELE #1. RESPIRATIONS EVEN. CALL LIGHT IN REACH. SON RESTING ON COUCH.
--- NOTE | 2023-12-13 05:31 | NUR ---
PRIMARY RN NOTIFIED RE BP.
[2023-12-13 05:35] LABS: ANION GAP 11.8 (7-21); BUN/CREATININE RATIO 12.5 (6.0-28.6); CALCIUM 8.6 mg/dL (8.5-10.1); CREATININE, SERUM 1.04 mg/dL (0.55-1.02); POTASSIUM 4.8 mmol/L (3.5-5.1)
--- NOTE | 2023-12-13 06:27 | NUR ---
PT UP AMB TALBERT WITH TELECOMMUNICATIONS CABLE JOINTER SBA X 2 LAPS. DENIES SOB WITH AMB. DENIES FEELING DIZZY OR LIGHTHEADED. NO COUGH NOTED. PT BACK IN BED AT THIS TIME. SCD'S IN PLACE. NO FURTHER NEEDS. CALL LIGHT IN REACH.
--- NOTE | 2023-12-13 06:29 | NUR ---
PATIENT TOOK A WALK AROUND THE [employer]'S STATION 2 LAPS. PATIENT IS BACK IN BED AND BP TAKEN 101/71 (78). PRIMARY RN NOTIFIED. PATIENT DID NOT HAVE FURTHER NEEDS AT THIS TIME. PATIENT STATED HOPING TO GET MORE SLEEP.
[2023-12-13] MEDS ORDERED: LACTATED RINGER'S 250 ML IV SCH ×2 (06:45→12:00)
--- NOTE | 2023-12-13 07:15 | NUR ---
REPORT REC'D FROM ELIZABETH LOTT. PT RESTING COMFORTABLY IN BED AT THIS TIME, NO C/O.
[2023-12-13] MEDS ORDERED: EMPAGLIFLOZIN 10 MG TAB PO SCH (09:00)
--- NOTE | 2023-12-13 09:15 | NUR ---
PT BP 95/72, NOTIFIED PO MEDICATIONS HELD. ORDERS REC'D FOR LR BOLUS OF 250ML/HR. 20G IV PLACED TO L OUTER AC. PT TOLERATED WELL. PT OOB TO BRP, SLOW, STEADY GAIT WITH 4WW, LINEN CHANGE PROVIDED. PT RETURNED TO BED, SR UP X 2, BED LOW POSITION, CALL WEST IN REACH, PT INSTRUCTED TO CALL FOR ASSIST, SCD'S PLACED.
--- NOTE | 2023-12-13 10:55 | NUR ---
Spoke with Debbie and she denies needs. She is bored. Took her a coloring book and markers. She denies any further needs. Family in the room.
[2023-12-13] MEDS ORDERED: LACTATED RINGER'S 1,000 ML IV SCH (11:45)
--- NOTE | 2023-12-13 14:20 | NUR ---
VISITED DURING SPIRITUAL CARE ROUNDS. PT IN GOOD SPIRITS, EXPRESSED HOPEFUL ANTICIPATION OF DISCHARGE TOMORROW. BEGAN COUGHING DURING VISIT. ASKED FOR NURSE. CHAR FILTER TANK TENDER HEAD PROVIDED SUPPORTIVE PRESENCE, ADVOCATED FOR PT BY RELAYING REQUEST TO ELIZABETH ALMAGUER, PROVIDED PRAYER.
--- NOTE | 2023-12-13 14:23 | NUR ---
PATIENT GIVEN TESSALON PEARLS FOR COUGH.
--- NOTE | 2023-12-13 15:58 | NUR ---
PT WANTED TO USE THE RESTROOM AND THEN GO ON A WALK. PT ONLY VOIDED IT WAS CHARTED AND SHE WAS READY TO GO ON A WALK. WE DID ONE LAP AROUND THE NURSING STATION AND THEN PT SAID SHE WANTED TO GO BACK TO BED TO TAKE A NAP.PT IS LAYING IN BED AND DOESNT NEED ANTHING ELSE FROM ME CALL LIGHT IS WITHIN REACH.
--- NOTE | 2023-12-13 17:35 | NUR ---
PATIENT IN BED AT THIS TIME. LEATHER BELT MAKER ASSISTED PATIENT IN AMBULATING TO BATHROOM AND THEN BACK TO BED. CALL LIGHT WITHIN REACH, NO FURTHER NEEDS AT THIS TIME.
--- NOTE | 2023-12-13 17:49 | NUR ---
PT REMAINS A&O X4, COOPERATIVE WITH CARE. PT IS SBA WITH OOB TO BRP. BP'S AFTER FLUID BOLUS 100-110'S SYSTOLIC. NO DROP FOLLOWING MEDICATION ADMINISTRATION. SATS REMAIN IN 90'S ON RA. NO C/O PAIN, N/V/D. ENCOURAGED PO INTAKE. CURRENTLY IN BED, SR UP X2, BED LOW POSITION, CALL WEST IN REACH
--- NOTE | 2023-12-13 19:34 | NUR ---
REPORT RECEIVED FROM DAY SHIFT RN. PT LYING IN BED ALERT AND ORIENTED. SBA TO BR TO VOID. BACK TO BED, ROGERS WELL. BREATHING TX ADMIN PER REQUEST. NO FURTHER NEEDS. WHITE BOARD UPDATED. CALL LIGHT IN REACH.
--- NOTE | 2023-12-13 20:41 | NUR ---
EVENING ASSESSMENT COMPLETE. SCHEDULED MEDS ADMIN PER EMAR. PT DENIES PAIN OR NAUSEA. DENIES SOB. LUNGS CLEAR THROUGHOUT. TELE #[address]. HR ONE TEENS. NO COUGH NOTED AT THIS TIME. PT DENIES QUESTIONS OR CONCERNS. CALL LIGHT IN REACH.
[2023-12-13] MEDS ORDERED: METOPROLOL TARTRATE 25 MG TAB PO SCH (21:00)
--- NOTE | 2023-12-13 21:12 | NUR ---
CALL LIGHT ANSWERED. pt COMPLAINS OF LEFT RIB PAIN. TEARFUL. VS TAKEN, STABLE. pt STATES "I THINK I JUST TURNED FUNNY". AMBULATING IN HALLWAY WITH FAMILY SBA WITH FWW. PRIMARY RN NOTIFIED.
--- NOTE | 2023-12-13 22:31 | NUR ---
PT UP TO BR WITH PALEOLOGIST ASSIST. BACK TO BED, ROGERS WELL. PRN FOR COUGH AND SLEEP ADMIN PER EMAR. NO FURTHER NEEDS. SON RESTING ON THE COUCH. CALL LIGHT IN REACH.
--- NOTE | 2023-12-14 00:45 | NUR ---
PT RESTING IN BED WITH EYES CLOSED. RESPIRATIONS EVEN. CALL LIGHT IN REACH.
[2023-12-14 01:29] VITALS: BP 96/70
--- NOTE | 2023-12-14 01:34 | NUR ---
CALL LIGHT ANSWERED. PT UP TO BR WITH PERSONAL WALKER AND MINIMAL SBA TO VOID. GAIT STEADY. BACK TO BED, ROGERS BLUE. VS OBTAINED. PT DENIES FURTHER NEEDS. CALL LIGHT IN REACH.
--- NOTE | 2023-12-14 03:27 | NUR ---
PT RESTING IN BED WITH EYES CLOSED. RESPIRATIONS EVEN. CALL LIGHT IN REACH.
[2023-12-14 05:23] VITALS: BP 96/65
[2023-12-14 05:29] LABS: BASOPHILS 0.7 % (0-2); EOSINOPHILS 1.3 % (0-6); HEMATOCRIT 31.5 % (35.0-50.0); LYMPHOCYTES 19.5 % (24-44); MCH 25.9 (27-36); MCHC 31.6 g/dl (30-36); MCV 81.8 fl (81-99); MONOCYTES 7.8 % (0-12); NEUTROPHILS 70.7 % (39-80); PLATELET COUNT 428 K/uL (140-440); RBC 3.86 M/ul (4.3-5.7); RDW 17.5 (10.5-15.0)
--- NOTE | 2023-12-14 05:31 | NUR ---
LAB IN ROOM FOR MORNING DRAW. PT UP TO BR TO VOID WITH MINIMAL SBA AND PERSONAL WALKER. BACK TO BED, ROGERS WELL. VS AND I&O OBTAINED. COFFEE PROVIDED PER REQUEST. NO FURTHER NEEDS.
[2023-12-14 05:38] LABS: ANION GAP 12.9 (7-21); BUN/CREATININE RATIO 11.65 (6.0-28.6); CALCIUM 8.6 mg/dL (8.5-10.1); CREATININE, SERUM 1.03 mg/dL (0.55-1.02); POTASSIUM 4.9 mmol/L (3.5-5.1)
--- NOTE | 2023-12-14 07:10 | NUR ---
PT APPEARS ASLEEP IN BED WITH RESPIRATIONS EVEN AND UNLABORED. CALL LIGHT WITHIN REACH.
--- NOTE | 2023-12-14 08:07 | NUR ---
PATIENT IN CHAIR AT THIS TIME. CODER OPERATOR ASSISTED PATIENT IN AMBULATING TO CHAIR. CALL LIGHT WITHIN REACH, NO FURTHER NEEDS AT THIS TIME.
--- NOTE | 2023-12-14 09:05 | NUR ---
PT UP TO RESTROOOM WITH FWW AND SBA, TOLERATED WELL.
[2023-12-14 09:13] VITALS: BP 105/70
--- NOTE | 2023-12-14 10:00 | NUR ---
In and spoke with Debbie. Her son is sleeping in the room. She states she gets to go home today. She denies any needs. She has a cardiology appt scheduled. She would like a hospital bed, states she will contact the [facility] and they have already let her know they will ship her a hospital bed. She denies any further needs and plans for dc today.
--- NOTE | 2023-12-14 10:12 | NUR ---
PATIENT IN BED AT THIS TIME. MATERIALS PLANNING MANAGER ASSISTED PATIENT IN AMBULATING AND GETTING READY FOR SHOWER. MATERIALS PLANNING MANAGER REATTACHED PATIENTS TELE MONITOR. CALL LIGHT WITHIN REACH, NO FURTHER NEEDS AT THIS TIME.
[2023-12-14 10:37] VITALS: BP 105/70
--- NOTE | 2023-12-14 11:25 | NUR ---
PT SITTING UP IN BED DOING CROSSWORD PUZZLE. FAMILY MEMBER RESTING ON COUCH IN ROOM. PT GIVEN ANOTHER CUP OF COFFEE PER REQUEST. NO OTHER REQUESTS AT THIS TIME. PT STATES THAT THE TESSALON MAGY HAS HELPED HER COUGH DECREASE. CALL LIGHT WITHIN REACH.
--- NOTE | 2023-12-14 12:46 | NUR ---
UR CONCURRENT REVIEW: MCG-PATIENT DOES NOT MEET GL DAY 2 DUE TO ONGOING TACHYCARDIA AND HYPOVELEMIA VIARANCE COMPLETED INPT 12/07/23 DISCHARGE PENDING FURTHER MEDICATION ADJUSTMENTS 12/16/23
[2023-12-14 13:37] VITALS: BP 95/62
--- NOTE | 2023-12-14 13:50 | NUR ---
PT SITTING UP IN BED WITH HEADPHONES ON. NO REQUESTS AT THIS TIME AND NO NEEDS IDENTIFIED. CALL LIGHT WITHIN REACH.
--- NOTE | 2023-12-14 14:17 | NUR ---
VISITED DURING SPIRITUAL CARE ROUNDS. PT DENIED IMMEDIATE NEEDS. WORKSITE WELLNESS PRACTITIONER PROVIDED SUPPORTIVE PRESENCE, HOSPITALITY, PRAYER.
--- NOTE | 2023-12-14 14:20 | NUR ---
PATIENT IN BED AT THIS TIME. FLOOR COVERER CHARTED PATIENTS VITALS AND I&O'S. CALL LIGHT WITHIN REACH, NO FURTHER NEEDS AT THIS TIME.
--- NOTE | 2023-12-14 14:48 | NUR ---
PT DECLINED TO WALK IN HALLS. PT HAS BEEN UP SEVERAL TIMES AMBULATING TO RESTROOM AND ALSO SHOWERED THIS AM. PT STATED SHE WANTS TO WAIT BECAUSE SHE IS HOPING TO GO HOME. CALL LIGHT WITHIN REACH.
[2023-12-14] MEDS ORDERED: VENTOLIN HFA18 GM INH (15:42)
[2023-12-14] MEDS ORDERED: JARDIANCE10 MG PO (15:43)
[2023-12-14] MEDS ORDERED: LISINOPRIL2.5 MG PO (15:43)
[2023-12-14] MEDS ORDERED: METOPROLOL SUCC25 MG PO (15:43)
[2023-12-14] MEDS ORDERED: LASIX20 MG PO (15:45)
[2023-12-14] MEDS ORDERED: TRAZODONE HCL50 MG PO (15:46)
[2023-12-14 16:07] VITALS: BP 103/68
--- NOTE | 2023-12-14 16:10 | NUR ---
PT DRESSES SELF, FAMILY X3 IN ROOM. IV REMOVED BY KARIE KLINE, PT TOLERATES THIS WELL. VSS. DISCUSSED DISCHARGE INSTRUCTIONS WITH PT AND FAMILY, BOTH VERBALIZE UNDERSTANDING. PT LEAVES UNIT VIA WHEELCHAIR, ESCORTED BY KARIE KLINE, TO PRIVATE CAR.
== END 2023-12-14 16:10 | disposition home or self-care (01) | DRG 291 ==
LOC: ED 14:33 → MS 20:28
PROVIDERS: Emergency Medicine; Family Medicine; Student in an Organized Health Care Education/Training Program; ADMIT Student in an Organized Health Care Education/Training Program; ATTEND Student in an Organized Health Care Education/Training Program
DX: I50.21 Acute systolic (congestive) heart failure (principal); J96.01 Acute respiratory failure with hypoxia; N17.9 Acute kidney failure, unspecified; J44.1 Chronic obstructive pulmonary disease with (acute) exacerbation; G47.00 Insomnia, unspecified; R74.8 Abnormal levels of other serum enzymes; I08.1 Rheumatic disorders of both mitral and tricuspid valves; F15.10 Other stimulant abuse, uncomplicated; I95.9 Hypotension, unspecified; Z98.890 Other specified postprocedural states; Z79.01 Long term (current) use of anticoagulants
CPT/HCPCS: 36415; 71046; 71260; 80048; 80053; 81001; 83735; 83880; 84484; 85025; 85060; 85610; 85730; 93005; 93010; 93306; 94640; 94760; 97161; 97530; 99285-25; A9270; J1650; J1940; J2405; J2919; J7121; Q9967

== ENCOUNTER 2024-01-23 05:39 | Emergency (ER) | payer OTHER ==
[~2024-01-23] VITALS: Ht 157.5 cm; Wt 48.8 kg
[~2024-01-23 05:39] MED LIST changes: +JARDIANCE10 MG PO; +LISINOPRIL2.5 MG PO; +METOPROLOL SUCC25 MG PO; +TRAZODONE HCL50 MG PO; +VENTOLIN HFA18 GM INH
--- OUTSIDE RECORDS SUMMARY | 2024-01-23 05:43 | XMS ---
PreManage Notification: HERMES RING Security Weigher Packing Events No recent Security Events currently on file CRITERIA MET - [facility] - 2 Visits in 30 Days CARE PROVIDERS There are no care providers on record at this time. Josy has no Care Guidelines for this patient. Won VISIT COUNT (12 MO.) 4 [facility] TOTAL 5 NOTE: Visits indicate total known visits. ED/C VISIT TRACKING (12 MO.) 2024 05:40 [facility] [place] TYPE: Emergency COMPLAINT: - SHORTNESS OF BREATH 01/18/2024 16:45 [facility] [place] TYPE: Emergency DIAGNOSES: - HEART PROBLEMS 12/07/2023 14:33 [facility] [place] TYPE: Emergency COMPLAINT: - TROUBLE BREATHING [...] movements or postures, initial encounter - Other fpc (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 - Pain in left ankle and joints of left foot - Sprain of unspecified ligament of left ankle, initial encounter INPATIENT VISIT TRACKING (12 MO.) 12/07/2023 20:[address] [facility] [place] TYPE: Medical Surgical COMPLAINT: - CHF EXACERBATION DIAGNOSES: - Abnormal levels of other serum enzymes - Abnormal levels of other serum enzymes - Acute kidney failure, unspecified - Acute kidney failure, unspecified - Acute respiratory failure with hypoxia - Acute respiratory failure with hypoxia - Acute systolic (congestive) heart failure - Chronic obstructive pulmonary disease with (acute) exacerbation - Chronic obstructive pulmonary disease with (acute) exacerbation - Hypotension, unspecified - Hypotension, unspecified - Insomnia, unspecified - Insomnia, unspecified - skilled nursing (current) use of anticoagulants - watermelon inspector (current) use of anticoagulants - Other specified postprocedural states - Other specified postprocedural states - Other stimulant abuse, uncomplicated - Other stimulant abuse, uncomplicated - Rheumatic disorders of both mitral and tricuspid valves - Rheumatic disorders of both mitral and tricuspid valves [email or web address]
[2024-01-23] MEDS ORDERED: ALBUTEROL/IPRATROPIUM 3 ML NEB INH ONE (05:45)
[2024-01-23 05:51] LABS: PH, VENOUS 7.342 (7.31-7.41)
[2024-01-23 05:57] LABS: BASOPHILS 1.2 % (0-2); EOSINOPHILS 0.9 % (0-6); HEMATOCRIT 31.6 % (35.0-50.0); HEMOGLOBIN 9.9 g/dL (12.0-18.0); LYMPHOCYTES 15.5 % (24-44); MCH 24.4 (27-36); MCHC 31.4 g/dl (30-36); MCV 77.7 fl (81-99); MONOCYTES 6.5 % (0-12); NEUTROPHILS 75.9 % (39-80); PLATELET COUNT 394 K/uL (140-440); RBC 4.07 M/ul (4.3-5.7); RDW 20.4 (10.5-15.0)
[2024-01-23 06:17] LABS: ALBUMIN/GLOBULIN RATIO 0.75 (1.1-2.4); ANION GAP 14.3 (7-21); BILIRUBIN, TOTAL 0.8 ng/dL (0.2-1.0); BUN/CREATININE RATIO 16.27 (6.0-28.6); CALCIUM 8.3 mg/dL (8.5-10.1); CREATININE, SERUM 0.86 mg/dL (0.55-1.02); POTASSIUM 4.3 mmol/L (3.5-5.1)
[2024-01-23] MEDS ORDERED: FUROSEMIDE 20 MG/2 ML VIAL IV ONE (06:30)
[2024-01-23 06:37] LABS: INFLUENZA B NAA NEGATIVE (NEGATIVE); RESPIRATORY SYNCYTIAL VIR NAA NEGATIVE (NEGATIVE)
[2024-01-23] MEDS ORDERED: METHYLPREDNISOLO4 M1 PO (06:56)
[2024-01-23] MEDS ORDERED: AZITHROMYCIN500 MG PO (06:56)
[2024-01-23] MEDS ORDERED: LASIX20 MG PO (06:56)
[2024-01-23 07:10] VITALS: BP 108/87
== END 2024-01-23 07:10 | disposition home or self-care (01) ==
LOC: ED 05:39
PROVIDERS: Family Medicine
DX: J44.0 Chronic obstructive pulmonary disease with (acute) lower respiratory infection (principal); J18.9 Pneumonia, unspecified organism; I50.9 Heart failure, unspecified; Z79.899 Other long term (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
CPT/HCPCS: 36415; 71045; 80053; 82803; 83880; 85025; 87502; 94640; 96374; 99285-25; J1940; U0002

== ENCOUNTER 2024-01-29 10:35 | Emergency (ER) | payer OTHER ==
[~2024-01-29] VITALS: Ht 157.5 cm; Wt 45.0 kg
[~2024-01-29 10:35] MED LIST changes: +AZITHROMYCIN500 MG PO; +METHYLPREDNISOLO4 M1 PO
--- OUTSIDE RECORDS SUMMARY | 2024-01-29 10:42 | XMS ---
PreManage Notification: HERMES RING Security Hog Ribber Events No recent Security Events currently on file CRITERIA MET - 6 ED Visits in 6 Months - [facility] - 2 Visits in 30 Days CARE PROVIDERS There are no care providers on record at this time. Josy has no Care Guidelines for this patient. Won VISIT COUNT (12 MO.) 5 [facility] TOTAL 6 NOTE: Visits indicate total known visits. ED/UCC VISIT TRACKING (12 MO.) [facility] COMPLAINT: - ABDOMINAL PAIN 2024 05:40 [facility] [place] TYPE: Emergency COMPLAINT: - SHORTNESS OF BREATH DIAGNOSES: - Chronic obstructive pulmonary disease with (acute) lower respiratory infection - Heart failure, unspecified - Other extermination supervisor (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 - Pneumonia, unspecified organism - Shortness of breath 01/18/2024 16:45 [facility] [place] TYPE: Emergency DIAGNOSES: - HEART PROBLEMS [...] movements or postures, initial encounter - Other extermination supervisor (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 - Pain in left ankle and joints of left foot - Sprain of unspecified ligament of left ankle, initial encounter INPATIENT VISIT TRACKING (12 MO.) 12/07/2023 20:28 [facility] [place] TYPE: Medical Surgical COMPLAINT: - CHF [...] - Insomnia, unspecified - Insomnia, unspecified - buttermaker helper (current) use of anticoagulants - buttermaker helper (current) use of anticoagulants - Other specified postprocedural states - Other specified postprocedural states - Other stimulant abuse, uncomplicated - Other stimulant abuse, uncomplicated - Rheumatic disorders of both mitral and tricuspid valves - Rheumatic disorders of both mitral and tricuspid valves [email or web address]
[2024-01-29] MEDS ORDERED: LIDOCAINE & ANTACID 35 ML BTL PO ONE (11:00)
[2024-01-29] MEDS ORDERED: ondansetron HCL 4 MG/2 ML VIAL IV ONE (11:00)
[2024-01-29] MEDS ORDERED: METOPROLOL TARTRATE 50 MG TAB PO ONE (11:00)
[2024-01-29 11:02] LABS: MCV 74.9 fl (81-99)
[2024-01-29 11:14] LABS: BASOPHILS 0.8 % (0-2); EOSINOPHILS 0.7 % (0-6); HEMATOCRIT 31.1 % (35.0-50.0); LYMPHOCYTES 16.1 % (24-44); MONOCYTES 6.1 % (0-12); NEUTROPHILS 76.3 % (39-80); PLATELET COUNT 428 K/uL (140-440); RBC 4.16 M/ul (4.3-5.7); RDW 19.8 (10.5-15.0)
[2024-01-29 11:22] LABS: ALBUMIN 3.2 g/dL (3.4-5.0); ALBUMIN/GLOBULIN RATIO 0.84 (1.1-2.4); ANION GAP 16.6 (7-21); BILIRUBIN, TOTAL 1.5 ng/dL (0.2-1.0); BUN/CREATININE RATIO 10.97 (6.0-28.6); CALCIUM 8.1 mg/dL (8.5-10.1); CREATININE, SERUM 0.82 mg/dL (0.55-1.02); POTASSIUM 4.6 mmol/L (3.5-5.1)
[2024-01-29 12:05] LABS: BILIRUBIN, URINE POSITIVE (negative); BLOOD/HGB, URINE NEGATIVE (Negative); KETONE, URINE NEGATIVE (Negative); LEUK ESTERASE, URINE NEGATIVE (negative); NITRITE, URINE NEGATIVE (negative)
[2024-01-29 12:11] LABS: BACTERIA, URINE 3+ /hpf (negative); CRYSTALS, URINE NONE SEEN (0-1+)
[2024-01-29 12:12] LABS: CASTS, URINE NONE SEEN \\lpf; COLLECTION TYPE, URINE CLEAN CATCH; REFLEX CULTURE, URINE Yes (No)
[2024-01-29 12:26] LABS: AMPHETAMINES, URINE POSITIVE (NEGATIVE); BARBITURATES, URINE NEGATIVE (NEGATIVE); BENZODIAZEPINE, URINE NEGATIVE (NEGATIVE); BUPRENORPHINE, URINE NEGATIVE (NEGATIVE); CANNABINOID, URINE NEGATIVE (NEGATIVE); COCAINE, URINE NEGATIVE (NEGATIVE); ECSTASY, URINE NEGATIVE (NEGATIVE); FENTANYL, URINE NEGATIVE (NEGATIVE); METHADONE, URINE NEGATIVE (NEGATIVE); OPIATES, URINE NEGATIVE (NEGATIVE); OXYCODONE, URINE NEGATIVE (NEGATIVE); PHENCYCLIDINE, URINE NEGATIVE (NEGATIVE)
[2024-01-29] MEDS ORDERED: ALBUTEROL/IPRATROPIUM 3 ML NEB INH ONE (12:30)
[2024-01-29] MEDS ORDERED: OMEPRAZOLE20 MG PO (12:50)
[2024-01-29 12:57] VITALS: BP 88/74
--- NOTE | 2024-01-30 08:28 | EKG ---
[facility] [address] [place] [address] Signed Sinus tachycardia Right bundle branch block Left posterior fascicular block Bifascicular block Abnormal ECG When compared with ECG of 07-DEC-2023 14:44, fusion complexes are no longer present T wave inversion more evident in Anterior leads Confirmed by Judi Meyers MD () on 01/30/2024 8:28:04 AM Electronically Signed By: JUDI MEYERS MD 01/30/24 0828 PATIENT NAME: HERMES RING Electrocardiogram DATE OF : [birth year] PHYSICIAN: JUDI MEYERS MD REPORT #: [id number] REPORT IS CONFIDENTIAL AND NOT TO BE RELEASED WITHOUT AUTHORIZATION
== END 2024-01-29 13:05 | disposition home or self-care (01) ==
LOC: ED 10:35
PROVIDERS: Emergency Medicine
DX: R10.13 Epigastric pain (principal); I45.2 Bifascicular block; J44.9 Chronic obstructive pulmonary disease, unspecified; I50.9 Heart failure, unspecified; Z79.899 Other long term (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
CPT/HCPCS: 36415; 80053; 80307; 81001; 83690; 85025; 87077; 87088; 87186; 93005; 93010; 94640; 96374; 99284-25; J2405

== ENCOUNTER 2024-01-29 22:42 | Inpatient (IN) | payer OTHER ==
[~2024-01-29] VITALS: Ht 157.5 cm; Wt 45.7 kg
[~2024-01-29 22:42] MED LIST changes: +OMEPRAZOLE20 MG PO
--- OUTSIDE RECORDS SUMMARY | 2024-01-29 22:43 | XMS ---
PreManage Notification: HERMES RING Security Oil Program Compliance Specialist Events No recent Security Events currently on file CRITERIA MET - 6 ED Visits in 6 Months - [facility] - 2 Visits in 30 Days CARE PROVIDERS There are no care providers on record at this time. Josy has no Care Guidelines for this patient. Won VISIT COUNT (12 MO[address] 6 [facility] TOTAL 7 NOTE: Visits indicate total known visits. ED/C VISIT TRACKING (12 MO.) [facility]24 22[facility] COMPLAINT: - SOB 01/29/2024 10:35 [facility] [place] TYPE: Emergency COMPLAINT: - ABDOMINAL PAIN 2024 05:40 [facility] [place] TYPE: Emergency COMPLAINT: - SHORTNESS OF BREATH DIAGNOSES: - Chronic obstructive pulmonary disease with (acute) lower respiratory infection - Heart failure, unspecified - Other group home (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 - Pneumonia, unspecified organism - Shortness of breath 01/18/2024 16:45 [facility] [place] TYPE: Emergency DIAGNOSES: - [...] movements or postures, initial encounter - Other group home (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 - Pain in left [...] - Insomnia, unspecified - Insomnia, unspecified - [facility] (current) use of anticoagulants - intermediate manager (current) use of anticoagulants - Other specified postprocedural states - Other specified postprocedural states - Other stimulant abuse, uncomplicated - Other stimulant abuse, uncomplicated - Rheumatic disorders of both mitral and tricuspid valves - Rheumatic disorders of both mitral and tricuspid valves [email or web address]
[2024-01-29] MEDS ORDERED: ALBUTEROL/IPRATROPIUM 3 ML NEB ONE (22:45)
[2024-01-29] MEDS ORDERED: FAMOTIDINE 20 MG/ 2 ML VIAL IV ONE (23:00)
[2024-01-29] MEDS ORDERED: ALBUTEROL/IPRATROPIUM 3 ML NEB INH ONE (23:00)
[2024-01-29] MEDS ORDERED: CEFTRIAXONE/SODIUM CHLORIDE 2 GM/100 ML PIGGYBACK IV ONE (23:00)
[2024-01-29] MEDS ORDERED: methylPREDNISolone SOD SUCC 125 MG/2 ML VIAL IV ONE (23:00)
[2024-01-29 23:18] LABS: BASOPHILS 0.7 % (0-2); HEMATOCRIT 36.6 % (35.0-50.0); HEMOGLOBIN 11.3 g/dL (12.0-18.0); LYMPHOCYTES 7.7 % (24-44); MCH 23.7 (27-36); MCHC 30.8 g/dl (30-36); MONOCYTES 8.1 % (0-12); NEUTROPHILS 83.5 % (39-80); PLATELET COUNT 361 K/uL (140-440); RBC 4.76 M/ul (4.3-5.7); RDW 20.6 (10.5-15.0)
[2024-01-29] MEDS ORDERED: FUROSEMIDE 40 MG/4 ML VIAL IV ONE (23:30)
[2024-01-29 23:40] LABS: ALBUMIN 3.5 g/dL (3.4-5.0); ALBUMIN/GLOBULIN RATIO 0.83 (1.1-2.4); ANION GAP 23.5 (7-21); BILIRUBIN, TOTAL 3.1 ng/dL (0.2-1.0); BUN/CREATININE RATIO 10.65 (6.0-28.6); CALCIUM 8.6 mg/dL (8.5-10.1); CREATININE, SERUM 1.69 mg/dL (0.55-1.02); MAGNESIUM 2.3 mg/dL (1.8-2.4); POTASSIUM 6.5 mmol/L (3.5-5.1); PROTEIN, TOTAL 7.7 g/dL (6.4-8.2)
[2024-01-29 23:45] LABS: LACTIC ACID, BLOOD 8.2 mmol/L (0.4-2.0)
[2024-01-29] MEDS ORDERED: MORPHINE SULFATE 4 MG/ML VIAL IV ONE (23:45)
[2024-01-29] MEDS ORDERED: ALBUTEROL SULFATE 0.5% 2.5 MG/0.5 ML VIAL INH ONE (23:45)
[2024-01-29] MEDS ORDERED: Insulin Regular, Human 100 UNIT/ML ML IV ONE (23:45)
[2024-01-29] MEDS ORDERED: DEXTROSE 50% 50 ML SYR IV ONE (23:45)
[2024-01-30] VITALS (10 sets, daily range): BP systolic 101–126; BP diastolic 61–88
[2024-01-30 00:12] LABS: ANION GAP 23.1 (7-21); BUN/CREATININE RATIO 9.52 (6.0-28.6); CALCIUM 8.5 mg/dL (8.5-10.1); CREATININE, SERUM 1.68 mg/dL (0.55-1.02); POTASSIUM 6.1 mmol/L (3.5-5.1)
[2024-01-30] MEDS ORDERED: LACTATED RINGER'S 1,000 ML IV ONE (00:15)
[2024-01-30 00:25] LABS: INFLUENZA B NAA NEGATIVE (NEGATIVE); RESPIRATORY SYNCYTIAL VIR NAA NEGATIVE (NEGATIVE)
[2024-01-30] MEDS ORDERED: SODIUM CHLORIDE 0.9% 1,000 ML IV PRN (00:45)
[2024-01-30 01:49] LABS: BILIRUBIN, URINE NEGATIVE (negative); BLOOD/HGB, URINE TRACE-L (Negative); KETONE, URINE NEGATIVE (Negative); LEUK ESTERASE, URINE NEGATIVE (negative); NITRITE, URINE NEGATIVE (negative)
[2024-01-30 02:00] LABS: BACTERIA, URINE RARE /hpf (negative); CASTS, URINE HYALINE 2+ \\lpf; COLLECTION TYPE, URINE CLEAN CATCH; CRYSTALS, URINE NONE SEEN (0-1+); EPITHELIAL CELLS, URINE SQUAMOUS 2+ /lpf (0-1+); RED BLOOD CELLS, URINE 0-1 /hpf (0-5); REFLEX CULTURE, URINE No (No)
[2024-01-30 02:04] LABS: AMPHETAMINES, URINE POSITIVE (NEGATIVE); BARBITURATES, URINE NEGATIVE (NEGATIVE); BENZODIAZEPINE, URINE NEGATIVE (NEGATIVE); BUPRENORPHINE, URINE NEGATIVE (NEGATIVE); CANNABINOID, URINE NEGATIVE (NEGATIVE); COCAINE, URINE NEGATIVE (NEGATIVE); ECSTASY, URINE NEGATIVE (NEGATIVE); FENTANYL, URINE NEGATIVE (NEGATIVE); METHADONE, URINE NEGATIVE (NEGATIVE); OPIATES, URINE POSITIVE (NEGATIVE); OXYCODONE, URINE NEGATIVE (NEGATIVE); PHENCYCLIDINE, URINE NEGATIVE (NEGATIVE)
[2024-01-30] MEDS ORDERED: FUROSEMIDE 100 MG/10 ML VIAL IV ONE (02:30)
[2024-01-30] MEDS ORDERED: CALCIUM GLUCONATE 1,000 MG/10 ML VIAL IV ONE (03:15)
[2024-01-30 03:16] LABS: ALBUMIN 3.1 g/dL (3.4-5.0); ALBUMIN/GLOBULIN RATIO 0.79 (1.1-2.4); ANION GAP 22.3 (7-21); BILIRUBIN, TOTAL 2.4 ng/dL (0.2-1.0); BUN/CREATININE RATIO 11.37 (6.0-28.6); CALCIUM 8.1 mg/dL (8.5-10.1); CREATININE, SERUM 1.67 mg/dL (0.55-1.02); POTASSIUM 4.3 mmol/L (3.5-5.1)
[2024-01-30 03:33] LABS: ACETAMINOPHEN 0 ug/mL (10-30)
[2024-01-30 03:36] LABS: ALCOHOL, MEDICAL <3 ng/dL (<3); SALICYLATE 2.8 mg/dL (2.8-20.0)
[2024-01-30] MEDS ORDERED: ALBUTEROL SULFATE 0.083% 3 ML VIAL INH PRN (04:15)
--- NOTE | 2024-01-30 05:15 | NUR ---
PATIENT ARRIVED TO UNIT AT 04:15. [facility] RECEIVED FROM ELIZABETH DELGADILLO. PATIENT IS AOX4. ADMISSION ASSESSMENTS COMPLETED. ORIENTED TO ROOM, NURSING STAFF AND SAFETY EDUCATION PROVIDED. PRABHA VERBALIZED UNDERSTANDING. BED EXIT ALARM ON. PATIENT WISHES TO REST AT THIS TIME. FELIPE CATHETER EMPTIED FOR 850 ML CLEAR YELLOW URINE. PATIENT REPORTS HER FAMILY ALREADY KNOWS SHE IS HERE AND DOES NOT NEED NURSING STAFF TO NOTIFY.
[2024-01-30 05:30] LABS: BASOPHILS 0.3 % (0-2); HEMATOCRIT 32.4 % (35.0-50.0); HEMOGLOBIN 10.1 g/dL (12.0-18.0); LYMPHOCYTES 4.7 % (24-44); MCH 23.8 (27-36); MCHC 31.2 g/dl (30-36); MCV 76.5 fl (81-99); MONOCYTES 3.9 % (0-12); NEUTROPHILS 91.1 % (39-80); PLATELET COUNT 333 K/uL (140-440); RBC 4.24 M/ul (4.3-5.7); RDW 20.2 (10.5-15.0)
[2024-01-30 05:47] LABS: ANION GAP 21.2 (7-21); BUN/CREATININE RATIO 12.71 (6.0-28.6); CALCIUM 9.7 mg/dL (8.5-10.1); CREATININE, SERUM 1.73 mg/dL (0.55-1.02); POTASSIUM 4.2 mmol/L (3.5-5.1)
[2024-01-30] MEDS ORDERED: FUROSEMIDE 40 MG/4 ML VIAL IV SCH (06:00)
--- NOTE | 2024-01-30 06:21 | NUR ---
PATIENT'S DAUGHTER DANO CALLED, PATIENT GAVE PERMISSION TO UPDATE. UPDATE GIVEN, DANO WILL VISIT AFTER WORK BUT IS AVAILABLE BY PHONE [phone].
--- NOTE | 2024-01-30 06:47 | NUR ---
REVIEWED AM LAB RESULTS WITH DR. MEYERS. ORDER RECEIVED TO ADD ON HEPATIC LABS TO AM DRAW. ALSO REVIEWED LASIX ORDER PATIENT RECEIVED DOSE IN ED AT 02:59. ORDER RECEIVED TO HOLD AM DOSE.
[2024-01-30 07:06] LABS: ALBUMIN 3.1 g/dL (3.4-5.0); ALBUMIN/GLOBULIN RATIO 0.82 (1.1-2.4); BILIRUBIN, DIRECT 0.9 mg/dL (0.0-0.2); BILIRUBIN, INDIRECT 1.9 (0.1-0.7); BILIRUBIN, TOTAL 2.8 ng/dL (0.2-1.0); PROTEIN, TOTAL 6.9 g/dL (6.4-8.2)
--- NOTE | 2024-01-30 07:30 | NUR ---
report from night assistant, this rn in room for assessment, pt awake alert and oriented, woodall draining pale clear urine. pt denies needs - asks when breakfast is? she is hungry. call light in reach. curtain opened to let in light, pt resp rate 18, 98% on room air. hr 117. iv sl wnl.
--- NOTE | 2024-01-30 08:27 | EKG ---
[facility] [address] [place] [address] Signed Normal sinus rhythm Right bundle branch block Left posterior fascicular block Bifascicular block Abnormal ECG When compared with ECG of 29-JAN-2024 11:03, No significant change was found Confirmed by Judi Meyers MD () on 01/30/2024 8:27:17 AM Electronically Signed By: JUDI MEYERS MD 01/30/24 0827 PATIENT NAME: HERMES RING Electrocardiogram DATE OF : 66 PHYSICIAN: JUDI MEYERS MD REPORT #: [id number] REPORT IS CONFIDENTIAL AND NOT TO BE RELEASED WITHOUT AUTHORIZATION
--- NOTE | 2024-01-30 08:58 | NUR ---
DR MEYERS IN WITH RN AND PT FOR ASSESSMENT. PT ALERT AND ORIENTED. TALKING AND COUGH WITH DRY NON PRODUCTIVE. ADMITS TO STOPING SMOKING OF CIG/ METH A FEW WEEKS AGO - BUT PEOPLE IN HOUSE ARE USING.
--- NOTE | 2024-01-30 09:23 | NUR ---
PATIENT ALERT AND ORIENTED, SITTING UP IN BED. LIVES IN APARTMENT WITH HER DAUGHTER. THERE ARE STAIRS WHICH SHE STATES SHE HAS NO ISSUES USING. SHE HAS A WALKER, NO OTHER DME. PATIENT HAS NOT PICKED UP HER MEDICATIONS BUT STATES HER DAUGHTER IS SUPPOSED TO BE PICKING THEM UP TODAY. STATES SHE DOES NOT DRIVE BUT WILL START USING [facility] FOR TRANSPORTATION TO APPOINTMENTS. NUMBER FOR [facility] ALSO PROVIDED FOR TRANSPORTATION. PATIENT HAS NO ISSUES PAYING FOR UTILITES FOOD OR MEDS. STATES SHE GETS $283/MONTH IN FOOD STAMPS AND DAUGHTER PAYS FOR SOME OF THE UTILITY COSTS. DISCUSSED PREVIOUS DRUG USE AND POTENTIAL NEED FOR ASSISTANCE. STATES SHE HAS NOT SMOKED CIGARETTES OR USED METH IN 3 WEEKS AND DOES NOT WANT HELP AT THIS TIME. PHONE NUMBER FOR [employer] AND INFORMATION FOR [facility] PROVIDED TO PATIENT. DENIES OTHER NEEDS AT THIS TIME.
[2024-01-30] MEDS ORDERED: ENOXAPARIN SODIUM 40 MG/0.4 ML SYR SUB-Q SCH (09:27)
[2024-01-30] MEDS ORDERED: NICOTINE POLACRILEX 2 MG GUM MM PRN (09:30)
[2024-01-30] MEDS ORDERED: ondansetron HCL 4 MG/2 ML VIAL IV PRN (09:30)
[2024-01-30] MEDS ORDERED: FLU VACC TS2024-25(6MOS UP)/PF 1 EACH SYR IM SCH (09:45)
--- NOTE | 2024-01-30 09:45 | NUR ---
in room for sq inj, pt toll well. ate oral breakfast well - denies needs, call light in reach.
--- NOTE | 2024-01-30 11:18 | NUR ---
VISITED DURING SPIRITUAL CARE ROUNDS. PT APPEARED TO BE SLEEPING. DID NOT DISTURB. PROVIDED PRAYER.
--- NOTE | 2024-01-30 11:31 | NUR ---
UR CLINICAL REVIEW: [facility] [place] [place] PNEUMONIA BASIC DMAP INPT 01/30/24 @ 0343 ORDER MATCHES REG NO AUTH REQUIRED PER MEDICAID GUIDELINES DISCHARGE TO HOME WHEN STABLE 02/01/24
--- NOTE | 2024-01-30 11:35 | NUR ---
refilled pt water, she is resting in bed with eyes closed no complaints. woodall draining wnl. call light in reach, bed alarm on.
[2024-01-30] MEDS ORDERED: PHARMACY RENAL DOSE ADJUSTMENT 1 DOSE MISC PO SCH (12:00)
[2024-01-30] MEDS ORDERED: CYCLOBENZAPRINE HCL 10 MG TAB PO PRN (13:30)
--- NOTE | 2024-01-30 14:10 | NUR ---
300 ML OF YELLOW URINE DUMPED FROM FELIPE - REFILL WATER - GOOD PO INTAKE. PT C/O CRAMPS IN HANDS AND LEGS, WARM PACK PROVIDED THEN FLEXERIL 5 MG PO GIVEN. PT REPORTS AT HOME SHE EATS PICKLES TO AID IN THE CRAMPS. WATCHING TV WITH CALL LIGHT IN REACH RESTING IN BED.
[2024-01-30 14:31] LABS: ALBUMIN 3.2 g/dL (3.4-5.0); ALBUMIN/GLOBULIN RATIO 0.91 (1.1-2.4); ANION GAP 21.8 (7-21); BILIRUBIN, TOTAL 1.7 ng/dL (0.2-1.0); BUN/CREATININE RATIO 16.48 (6.0-28.6); CALCIUM 8.7 mg/dL (8.5-10.1); CREATININE, SERUM 1.88 mg/dL (0.55-1.02); POTASSIUM 4.8 mmol/L (3.5-5.1); PROTEIN, TOTAL 6.7 g/dL (6.4-8.2)
--- NOTE | 2024-01-30 15:15 | NUR ---
pt eyes closed, hr 123, no apparent distress - call light in reach.
--- NOTE | 2024-01-30 15:55 | NUR ---
eulogio from lab called about labs - tranfered call to dr diaz to discuss.
--- NOTE | 2024-01-30 16:07 | NUR ---
IN ROOM TALKING WITH PT AND THIS RN, LAB IN FOR REPEAT LAB DRAW. PT HR 122, C/O ABD PAIN IN MID AREA.
--- NOTE | 2024-01-30 16:27 | NUR ---
pt amb 1 person assist to chair from bed. bed bath and hair wash complete. oral care done, chap stick. woodall care done - skin wnl - exception of extremly overgrown toe nails that curl. skid socks on for transfer - carefully placed over nails. family in room while put up in chair with call light in reach.
[2024-01-30 16:29] LABS: INR 2.23 (0.80-1.30); PROTIME 24.4 Sec (11.2-14.2)
--- NOTE | 2024-01-30 16:37 | NUR ---
pt c/o mid epigastric pain, here - new orders for meds.
[2024-01-30 16:45] LABS: ALBUMIN 3.1 g/dL (3.4-5.0); ALBUMIN/GLOBULIN RATIO 0.79 (1.1-2.4); ANION GAP 19.5 (7-21); BILIRUBIN, TOTAL 1.6 ng/dL (0.2-1.0); BUN/CREATININE RATIO 18.6 (6.0-28.6); CALCIUM 8.8 mg/dL (8.5-10.1); CREATININE, SERUM 1.72 mg/dL (0.55-1.02); POTASSIUM 4.5 mmol/L (3.5-5.1)
[2024-01-30] MEDS ORDERED: MORPHINE SULFATE 4 MG/ML VIAL IV PRN (16:45)
--- NOTE | 2024-01-30 16:54 | NUR ---
here on unit reviewing labs, pt pain resolved - report it like a spasm - denies needs for meds at this time. sitting up in chair visiting with family. call light in reach.
--- NOTE | 2024-01-30 17:23 | NUR ---
AT BEDSIDE WITH RN, PT DENIES PAIN AND WANTS TO EAT. DISCUSSED PLAN AND VERBALIZES UNDERSTANDING. FELIPE TO GRAVITY - IVX2 SL. ROOM AIR, 99% SITTING UP IN CHAIR WITH CALL LIGHT.
--- NOTE | 2024-01-30 18:14 | NUR ---
PT UP IN CHAIR EATING DINNER - DENIES NEEDS.
--- NOTE | 2024-01-30 18:57 | NUR ---
PT STOOD AND WALKED TO BED WITH THIS RN, DESTINEE DENTON AND PT DENIES ANY PAIN, BED ALARM ON AND CALL LIGHT IN REACH. HR 115, NO SOB -
--- NOTE | 2024-01-30 19:37 | NUR ---
Report received from daysmift RN. Patient resting in bed with eyes closed, even and unlabored respirations, HR sinus tachy. No needs identified at this time, will continue plan of care.
--- NOTE | 2024-01-30 20:17 | NUR ---
Patient assessment complete. Afebrile, VSS. Mitral regurg/triscuspid regurg noted with cardiac assessment. On RA, no crackles noted at this time, diminished. Moderate ABD distention, patient denies pain at this time. CMS intact. IVs WNL. Langston emptied of 100 yellow urine. Patient has no needs at this time. Call light in reach.
[2024-01-30] MEDS ORDERED: CEFAZOLIN SODIUM 1 GM/10 ML SYR IV SCH (22:00)
[2024-01-30 22:28] LABS: ALBUMIN 3.1 g/dL (3.4-5.0); ALBUMIN/GLOBULIN RATIO 0.79 (1.1-2.4); ANION GAP 15.7 (7-21); BILIRUBIN, DIRECT 0.8 mg/dL (0.0-0.2); BILIRUBIN, INDIRECT 0.8 (0.1-0.7); BILIRUBIN, TOTAL 1.6 ng/dL (0.2-1.0); BUN/CREATININE RATIO 21.65 (6.0-28.6); CALCIUM 8.7 mg/dL (8.5-10.1); CREATININE, SERUM 1.57 mg/dL (0.55-1.02); INR 2.19 (0.80-1.30); POTASSIUM 4.7 mmol/L (3.5-5.1); PROTIME 23.4 Sec (11.2-14.2)
[2024-01-31] VITALS (9 sets, daily range): BP systolic 72–120; BP diastolic 41–95
--- NOTE | 2024-01-31 00:13 | NUR ---
Assessment complete. Patient resting in bed with eyes closed, even and unlabored respirations, VSS, on RA. occasional cough noted. Afebrile, woodall temp probe in place. Woodall draining clear yellow urine. No needs at this time. Call light in reach
--- NOTE | 2024-01-31 04:30 | NUR ---
Assessment complete, patient resting in bed, alerts this RN that she spilled water on herself-- gown and linens changed. Pt has frequent, harsh cough, Marco RT in room for breathing tx. Pt requests orange juice, provided. Warm blankets given. No further needs.
[2024-01-31 05:25] LABS: HEMATOCRIT 31.5 % (35.0-50.0); MCH 23.6 (27-36); MCHC 31.6 g/dl (30-36); MCV 74.5 fl (81-99); PLATELET COUNT 325 K/uL (140-440); RBC 4.22 M/ul (4.3-5.7); RDW 20.2 (10.5-15.0)
[2024-01-31 05:35] LABS: INR 2.06 (0.80-1.30); PROTIME 22.8 Sec (11.2-14.2)
[2024-01-31 05:47] LABS: ALBUMIN 2.9 g/dL (3.4-5.0); ALBUMIN/GLOBULIN RATIO 0.76 (1.1-2.4); ANION GAP 14.8 (7-21); BILIRUBIN, DIRECT 0.8 mg/dL (0.0-0.2); BILIRUBIN, INDIRECT 0.7 (0.1-0.7); BILIRUBIN, TOTAL 1.5 ng/dL (0.2-1.0); BUN/CREATININE RATIO 25.34 (6.0-28.6); CALCIUM 8.3 mg/dL (8.5-10.1); CREATININE, SERUM 1.46 mg/dL (0.55-1.02); PHOSPHORUS, INORGANIC 2.8 mg/dL (2.5-4.9); POTASSIUM 4.8 mmol/L (3.5-5.1); PROTEIN, TOTAL 6.7 g/dL (6.4-8.2)
[2024-01-31 06:07] LABS: BANDS, MANUAL DIFF 4; LYMPHOCYTES, MANUAL DIFF 1; NEUTROPHILS, MANUAL DIFF 95
--- NOTE | 2024-01-31 06:45 | NUR ---
Noted patient changes such as increased temperature, HR, and increased cough, lab work back, Dr Wilson notified, orders for imaging and UA received and entered.
[2024-01-31 06:47] LABS: BILIRUBIN, URINE NEGATIVE (negative); BLOOD/HGB, URINE SMALL (Negative); KETONE, URINE NEGATIVE (Negative); LEUK ESTERASE, URINE NEGATIVE (negative); NITRITE, URINE NEGATIVE (negative)
[2024-01-31 06:53] LABS: BACTERIA, URINE 2+ /hpf (negative); CASTS, URINE NONE SEEN \\lpf; CRYSTALS, URINE NONE SEEN (0-1+); EPITHELIAL CELLS, URINE 0 /lpf (0-1+); RED BLOOD CELLS, URINE 0-1 /hpf (0-5)
[2024-01-31 06:54] LABS: COLLECTION TYPE, URINE CLEAN CATCH; REFLEX CULTURE, URINE Yes (No)
--- NOTE | 2024-01-31 07:30 | NUR ---
REPORT RECEIVED. PATIENT IS SLEEPING WITH HOB ELEVATED. NO DISTRESS NOTED.
--- NOTE | 2024-01-31 08:00 | NUR ---
AWAKE ASSESSMENT DONE. C/O MILD ABD PAIN. SAID THE PAIN MED THAT WAS GIVEN EARILER HELPED. TALKING ABOUT THE ABD PAIN SHE HAS BEEN HAVING WHEN SHE EATS. PATIENT SAID THIS HAS BEEN HAPPENING FREQUENLY FOR SOME TIME. TALKING ABOUT THE POSSIBLITY OF BEING TRANFERRED TO HIGHER LEVEL OF CARE. TOLD PATIENT WE WILL TALK WITH DR. MEYERS ABOUT THIS WHEN HE MAKES ROUNDS. PATIENT IS CCOPERATIVE AND INTERACTIVE. SITTING UP IN BED FOR BREAKFAST.
[2024-01-31] MEDS ORDERED: AZITHROMYCIN 500 MG in DEXTROSE 5% 250 ML IV SCH (09:00)
[2024-01-31] MEDS ORDERED: METOPROLOL SUCCINATE 25 MG TABCR PO SCH (09:00)
[2024-01-31] MEDS ORDERED: BENZONATATE 100 MG CAP PO PRN (09:00)
[2024-01-31] MEDS ORDERED: CEFTRIAXONE/SODIUM CHLORIDE 2 GM/100 ML PIGGYBACK IV SCH (09:00)
--- NOTE | 2024-01-31 09:00 | NUR ---
TOOK APPROX 50% OF BREAKFAST. AFTER EATING, ABD IS MORE DISTENDED. IV ABX AND PO LOPRESSOR GIVEN. FELIPE CATH PATIENT WITH CLOUDY URINE NOTED.
--- NOTE | 2024-01-31 09:20 | NUR ---
PATIENT STATES SHE WANTS TO TAKE A NAP, HOB TO 25 DEGRESS SO PATIENT CAN NAP.
--- NOTE | 2024-01-31 09:30 | NUR ---
PATIENT MOANING. NAUSEATED, DRY HEAVES. SEVERE ABD PAIN. RESTLESS. STATES HELP ME, HELP ME.
--- NOTE | 2024-01-31 09:35 | NUR ---
MORPHINE 2 MG IV GIVEN FOLLOWED BY ZOFRAN 4 MG IV FOR NAUSEA. PATIENT RESTLESS.
--- NOTE | 2024-01-31 09:40 | NUR ---
PATIENT ALL OVER THE BED. NOT ABLE TO CALM DOWN. DR. MEYERS NOTIFIED.
--- NOTE | 2024-01-31 09:43 | NUR ---
POSSIBLE FOCAL SEIZURE NOTE. NOT ABLE TO RESPOND VERBALLY. HR 70-90. RAPID RESPONSE CALLED. DR. MEYERS IN ROOM.
--- NOTE | 2024-01-31 09:45 | NUR ---
ATIVAN 1 MG IV GIVEN PER ORDERS.
[2024-01-31] MEDS ORDERED: LORazepam 2 MG/ML VIAL ONE (09:54)
--- NOTE | 2024-01-31 09:55 | NUR ---
RAPID RESPONSE CALLED. RT BVM ON 100% FIO2. PATIENT UNRESPONSIVE.
--- NOTE | 2024-01-31 09:57 | NUR ---
LABS DRAWN. FELIPE TEMP REEDING 100.2 NON-RESPONSIVE. HYPOTENSIVE.
[2024-01-31] MEDS ORDERED: SODIUM CHLORIDE 0.9% 1,000 ML IV SCH (10:00)
--- NOTE | 2024-01-31 10:00 | NUR ---
ATIVAN 1 MG IV GIVEN PER DR. MEYERS ORDERS.
[2024-01-31] MEDS ORDERED: levETIRAcetam 500 MG/5 ML VIAL IV ONE ×2 (10:01→10:20)
--- NOTE | 2024-01-31 10:06 | NUR ---
KEPPRA 2000 MG IV GIVEN PER ORDERS, FOLLOWED BY NS BOLUS 1 LITER PATIENT.
--- NOTE | 2024-01-31 10:06 | NUR ---
BLUE TEAM CALLED. SEE BLUE TEAM RECORD.
[2024-01-31] MEDS ORDERED: GLUCAGON,HUMAN RECOMBINANT 1 MG/ML VIAL ONE (10:08)
[2024-01-31] MEDS ORDERED: NOREPINEPHRINE BITARTRATE 250 ML IV ONE ×2 (10:13→11:19)
[2024-01-31] MEDS ORDERED: KETAMINE in NS 50 MG/5 ML SYR ONE (10:17)
[2024-01-31 10:28] LABS: PH, VENOUS 6.941 (7.31-7.41)
[2024-01-31] MEDS ORDERED: KETAMINE in NS 50 MG/5 ML SYR IV ONE (10:30)
[2024-01-31] MEDS ORDERED: DEXTROSE 5% IV SCH ×2 (10:30→11:30)
[2024-01-31] MEDS ORDERED: LORazepam 2 MG/ML VIAL IV PRN (10:30)
[2024-01-31] MEDS ORDERED: VASOPRESSIN IV SCH ×2 (10:30→11:30)
[2024-01-31 10:31] LABS: HEMATOCRIT 30.5 % (35.0-50.0); HEMOGLOBIN 8.7 g/dL (12.0-18.0); MCH 23.6 (27-36); MCHC 28.6 g/dl (30-36); MCV 82.5 fl (81-99); PLATELET COUNT 230 K/uL (140-440); RDW 21.4 (10.5-15.0)
--- NOTE | 2024-01-31 10:43 | NUR ---
RETURN TO [facility] AFTER RECEIVING TOTAL OF 4 MG OF EPI. HR-87. BP-134/54. ON VENT WITH SIZE 7.5 ETT. VT-400, RR-18,PEEP-5, FIO2-80, PIP-19, ETCO2-27. ETT TUBE TAPED 24 AT [facility]. CHEST XRAY WAS DONE EARLIER TO COMFIRM PLACEMENT OF ETT AND OGT. CURRENTLY ON DOBUTAMINE GTT, NOREP GTT, VASOPRESSION GTT. HAS [address] PRUITT CONSULTED FOR CVC PLACEMENT. REMAINS HYPOTENSIVE. WILL TITRATE GTTS ACCORDINGLY. SEE CODE SHEET.
[2024-01-31 10:54] LABS: ALBUMIN 2.4 g/dL (3.4-5.0); ALBUMIN/GLOBULIN RATIO 0.73 (1.1-2.4); ANION GAP 24.5 (7-21); BANDS, MANUAL DIFF 7; BILIRUBIN, DIRECT 0.6 mg/dL (0.0-0.2); BILIRUBIN, INDIRECT 0.4 (0.1-0.7); BUN/CREATININE RATIO 18.36 (6.0-28.6); CALCIUM 7.5 mg/dL (8.5-10.1); CREATININE, SERUM 1.96 mg/dL (0.55-1.02); EOSINOPHILS, MANUAL DIFF 1; LYMPHOCYTES, MANUAL DIFF 25; MONOCYTES, MANUAL DIFF 5; NEUTROPHILS, MANUAL DIFF 62; POTASSIUM 4.5 mmol/L (3.5-5.1); PROTEIN, TOTAL 5.7 g/dL (6.4-8.2)
[2024-01-31 11:00] LABS: BASOPHILS, MANUAL DIFF 0
--- NOTE | 2024-01-31 11:03 | NUR ---
RESPONDED TO RAPID RESPONSE ALERT. PROVIDED SUPPORTIVE PRESENCE, PRAYER, ATTEMPTED TO CONTACT FAMILY WITH NO RESPONSE. AFTER SEVERAL FAILED ATTEMPTS TO CONTACT FAMILY, CALLED [employer] TO REQUEST OFFICER BE SENT TO ADDRESS ON RECORD FOR PT SO FAMILY CAN BE ASKED TO COME TO HOSPITAL. WILL FOLLOW UP CIRCUMSTANCE ALLOW.
[2024-01-31] MEDS ORDERED: KETAMINE HCL IN NACL, ISO-OSM 100 ML IV ONE (11:07)
[2024-01-31 11:15] LABS: PH, VENOUS 7.048 (7.31-7.41)
--- NOTE | 2024-01-31 11:15 | NUR ---
HEAD OF MOBILE PLACED ART LINE TO RIGHT RADIAL ARTERY. BP-86/78 VIA ART LINE. HR-143. TEMP-98. PATIENT WILL BE TRANSFERRED TO [facility] IN [place]. WILL BE TRANSFERRED VIA [facility].
[2024-01-31 11:29] LABS: BASE EXCESS, BLOOD GAS -18.4 mmol/L (-2-2); HCO3, BLOOD GAS 9.4 mmol/L (22-26); PCO2, BLOOD GAS 28.6 mmHg (35-45); PH, BLOOD GAS 7.13 (7.35-7.45); PO2, BLOOD GAS 355 mmHg (80-100); TOTAL CO2, BLOOD GAS 10.3
[2024-01-31 11:30] LABS: O2 SATURATION, BLOOD GAS > 100.0 % (95.0-100.0); OXYGEN RECEIVED, BLOOD GAS 100
[2024-01-31] MEDS ORDERED: EPINEPHrine HCL 1 MG/10 ML SYR IV SCH ×2 (11:30→13:30)
[2024-01-31] MEDS ORDERED: ATROPINE SULFATE 1 MG/10 ML SYR IV SCH (11:30)
[2024-01-31] MEDS ORDERED: SODIUM BICARBONATE 50 MEQ/50 ML VIAL IV ONE (11:30)
[2024-01-31] MEDS ORDERED: Dobutamine HCl/D5w 250 ML IV SCH (11:30)
[2024-01-31] MEDS ORDERED: KETAMINE HCL IN NACL, ISO-OSM 100 ML IV SCH (11:30)
[2024-01-31] MEDS ORDERED: GLUCAGON,HUMAN RECOMBINANT 1 MG/ML VIAL IV ONE (11:30)
[2024-01-31] MEDS ORDERED: NOREPINEPHRINE BITARTRATE 250 ML IV SCH (11:30)
[2024-01-31 11:32] LABS: ABO O; ANTIBODY SCREEN NEGATIVE; RH POSITIVE
--- NOTE | 2024-01-31 11:45 | NUR ---
[facility] HERE, REPORT TO THEM.
--- NOTE | 2024-01-31 12:55 | NUR ---
PRIOR TO TRANSFER TO [facility] VIA FIXED WING, ETT WITHDRAW TO 22 AT GUM BY RT. THIS ORDERED PER RADIOLOIST. VASOPRESSION,DOBUTAMINE, NOREPI GTT INFUSING TO TRIPLE LUMEN RIJ. VENT SETTING, TV-400, FIO2-80, PEEP-5, RR-18. PATIENT TOTAL RR-24. FELIPE CATH PATIENT
[2024-01-31] MEDS ORDERED: K-TAB ER20 MEQ PO (13:02)
[2024-01-31] MEDS ORDERED: LASIX40 MG PO (13:02)
[2024-01-31] MEDS ORDERED: COZAAR25 MG PO (13:02)
[2024-01-31] MEDS ORDERED: NICODERM CQ1 EACH TD (13:03)
--- NOTE | 2024-01-31 13:03 | NUR ---
MED REC COMPLETE
--- NOTE | 2024-01-31 13:30 | NUR ---
REPORT CALLED TO [facility].
--- NOTE | 2024-01-31 21:55 | EKG ---
[facility] [address] [facility] [place] [address] Signed Sinus tachycardia Right bundle branch block Abnormal ECG When compared with ECG of 29-JAN-2024 23:23, Vent. rate has increased BY 49 BPM Nonspecific T wave abnormality no longer evident in Inferior leads Confirmed by Judi Meyers MD () on 01/31/2024 9:55:20 PM Electronically Signed By: JUDI MEYERS MD 01/31/24 2155 PATIENT NAME: HERMES RING Electrocardiogram DATE OF : 66 PHYSICIAN: JUDI MEYERS MD REPORT #: [id number] REPORT IS CONFIDENTIAL AND NOT TO BE RELEASED WITHOUT AUTHORIZATION
--- NOTE | 2024-02-01 09:33 | OR ---
[facility] [address] [place], [place] [address] Signed DATE OF OPERATION: 01/31/2024 SURGEON: Claudia Mccracken MD PREOPERATIVE DIAGNOSES: 1. Congestive heart failure. 2. Pressor support. POSTOPERATIVE DIAGNOSES: 1. Congestive heart failure. 2. Pressor support. PROCEDURES: 1. Placement of right internal jugular triple-lumen catheter. 2. Physician-directed ultrasound. INDICATIONS: Debibe is a 54-year-old female, who has been admitted to the ICU under our medical service. She has been in heart failure and doing well with her diuresis. She had coded earlier and is now on pressor support. She is intubated and completely sedated. I had been in the operating room working during that time. I was asked to come as a local general surgeon to place a central venous catheter for Debbie for ongoing ICU monitoring and support. Of course, she is intubated and completely sedated. Therefore, we proceeded given her current situation. DESCRIPTION OF PROCEDURE: Debbie was kept in the supine position. We were able to prep and drape her right neck and chest wall. We were able to easily find her right internal jugular vein with the help of the ultrasound. We injected some local anesthetic underneath the skin. We passed our needle under direct visualization of the ultrasound directly into the right internal jugular vein. We then passed the wire without any resistance, whatsoever. We washed the wire go down the internal jugular vein with the ultrasound. After this, we dilated over the wire and we watched the dilator followed the wire into the internal jugular vein. We then placed a triple-lumen catheter up to about 12 cm and she is so small. All three ports were able to draw and flush dark venous blood quite nicely. We sutured the catheter in place at the neck and put the hub down near the clavicle with two interrupted sutures. Our nurses applied plastic occlusive dressing. We then checked her chest x-ray and everything seems to be good without any pneumothorax or other complication. Debbie seemed to tolerate the procedure quite well. She is now in the process of being Electronically Signed By: CLAUDIA MCCRACKEN MD 02/01/24 0933 PATIENT NAME: DEBBIE RING OPERATIVE REPORT DATE OF : 66 REPORT #: [id number] PHYSICIAN: CLAUDIA MCCRACKEN MD PCP: [facility] REPORT IS CONFIDENTIAL AND NOT TO BE RELEASED WITHOUT AUTHORIZATION [address] [address] Signed transferred to [place] for ongoing higher level of care. MD RATNA Mccloud/SUNNIL /[id number] cc: Claudia Mccracken MD [facility] Patient Chart Copies: CLAUDIA MCCRACKEN MD [facility] ~ Electronically Signed By: CLAUDIA MCCRACKEN MD 02/01/24 0933 PATIENT NAME: DEBBIE RING OPERATIVE REPORT DATE OF : 66 REPORT #: [id number] PHYSICIAN: CLAUDIA MCCRACKEN MD PCP: [facility] REPORT IS CONFIDENTIAL AND NOT TO BE RELEASED WITHOUT AUTHORIZATION
[2024-02-01 14:13] LABS: HEPATITIS A ANTIBODY, IGM Negative (Negative); HEPATITIS B CORE ANTIBODY, IGM Negative (Negative); HEPATITIS B SURFACE ANTIGEN Negative (Negative); HEPATITIS C AB CIA INTERP Negative (Negative); HEPATITIS C ANTIBODY CIA INDEX 0.14 IV (())
== END 2024-01-31 12:55 | disposition short-term general hospital (02) | DRG 871 ==
LOC: ED 22:42 → CCU 01-30 03:43
PROVIDERS: Internal Medicine; ADMIT Family Medicine; ATTEND Family Medicine
PROC: 0T9B70Z Drainage of Bladder with Drainage Device, Via Natural or Artificial Opening (ICD-10-PCS; 2024-01-29)
PROC: 3E03329 Introduction of Other Anti-infective into Peripheral Vein, Percutaneous Approach (ICD-10-PCS; 2024-01-29)
PROC: 5A1935Z Respiratory Ventilation, Less than 24 Consecutive Hours (ICD-10-PCS; principal; 2024-01-31)
PROC: 5A12012 Performance of Cardiac Output, Single, Manual (ICD-10-PCS; 2024-01-31)
PROC: 02HV33Z Insertion of Infusion Device into Superior Vena Cava, Percutaneous Approach (ICD-10-PCS; 2024-01-31)
PROC: 4A033R1 Measurement of Arterial Saturation, Peripheral, Percutaneous Approach (ICD-10-PCS; 2024-01-31)
PROC: 0BH17EZ Insertion of Endotracheal Airway into Trachea, Via Natural or Artificial Opening (ICD-10-PCS; 2024-01-31)
PROC: 03HY32Z Insertion of Monitoring Device into Upper Artery, Percutaneous Approach (ICD-10-PCS; 2024-01-31)
PROC: 4A133B1 Monitoring of Arterial Pressure, Peripheral, Percutaneous Approach (ICD-10-PCS; 2024-01-31)
PROC: 4A133J1 Monitoring of Arterial Pulse, Peripheral, Percutaneous Approach (ICD-10-PCS; 2024-01-31)
PROC: 3E043XZ Introduction of Vasopressor into Central Vein, Percutaneous Approach (ICD-10-PCS; 2024-01-31)
DX: A41.9 Sepsis, unspecified organism (principal); I46.9 Cardiac arrest, cause unspecified; R65.21 Severe sepsis with septic shock; I50.23 Acute on chronic systolic (congestive) heart failure; J18.9 Pneumonia, unspecified organism; J96.01 Acute respiratory failure with hypoxia; R57.0 Cardiogenic shock; K72.00 Acute and subacute hepatic failure without coma; N17.9 Acute kidney failure, unspecified; N39.0 Urinary tract infection, site not specified; J44.0 Chronic obstructive pulmonary disease with (acute) lower respiratory infection; I45.2 Bifascicular block; F19.10 Other psychoactive substance abuse, uncomplicated; T50.916A Underdosing of multiple unspecified drugs, medicaments and biological substances, initial encounter; Z91.138 Patient's unintentional underdosing of medication regimen for other reason; Z85.41 Personal history of malignant neoplasm of cervix uteri; Z72.0 Tobacco use
CPT/HCPCS: 31500; 36415; 36556; 36592; 36620; 51702; 71045; 74176; 76705; 80048; 80053; 80074; 80076; 80307; 81001; 82140; 82248; 82803; 83605; 83615; 83690; 83735; 83880; 84100; 84484; 85025; 85610; 86850; 86900; 86901; 87088; 87502; 93005; 93010; 94002; 94640; 94644; 99285-25; G0480; J0171; J0456; J0461; J0612; J0690; J0696; J1250; J1610; J1650; J1815; J1940; J1953; J2060; J2270; J2405; J2919; J3490; J7030; J7060; U0002

== ENCOUNTER 2024-02-18 21:22 | Emergency (ER) | payer OTHER ==
[~2024-02-18] VITALS: Ht 157.5 cm; Wt 62.5 kg
[~2024-02-18 21:22] MED LIST changes: +COZAAR25 MG PO; +K-TAB ER20 MEQ PO; +LASIX40 MG PO; +NICODERM CQ1 EACH TD
--- OUTSIDE RECORDS SUMMARY | 2024-02-18 21:28 | XMS ---
PreManage Notification: HERMES RING Security Primary Care Physician Events No recent Security Events currently on file CRITERIA MET - 6 ED Visits in 6 Months - [facility] - 2 Visits in 30 Days CARE PROVIDERS CELSA MINAYA Nurse Practitioner: Family [facility] PHONE: [phone] VANIA RODRIGUES Physician Marketing Database Analyst Gracy COLLINS PHONE: [phone] MARK ANDREW Nurse Practitioner: Adult [facility] PHONE: [phone] Josy has no Care Guidelines for this patient. E.D. VISIT COUNT (12 MO.) 7 [facility] NOTE: Visits indicate total known visits. ED/UCC VISIT TRACKING (12 MO.) 02/18/2024 21:22 [facility] [place] TYPE: Emergency COMPLAINT: - SOB 01/29/2024 22:42 [facility] [place] TYPE: Emergency COMPLAINT: - SOB 01/29/2024 10:35 [facility] [place] TYPE: Emergency COMPLAINT: - ABDOMINAL PAIN DIAGNOSES: - Bifascicular block - Chronic obstructive pulmonary disease, unspecified - Epigastric pain - Heart failure, unspecified - Localized swelling, mass and lump, head - Other intermediate card tender (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 - Upper abdominal pain, unspecified 2024 05:40 [facility] [place] TYPE: Emergency COMPLAINT: - SHORTNESS OF BREATH DIAGNOSES: - Chronic obstructive pulmonary disease with (acute) lower respiratory infection - Heart failure, unspecified - Other mcfp (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 - Pneumonia, unspecified organism - Shortness of breath 01/18/2024 16:45 [facility] [place] TYPE: Emergency DIAGNOSES: - HEART PROBLEMS 12/07/2023 14:[address] [facility] [place] TYPE: Emergency COMPLAINT: - TROUBLE BREATHING 11/21/2023 22:08 [facility] [place] [facility] [place] TYPE: Emergency COMPLAINT: - ABDOMINAL PAIN DIAGNOSES: - Chronic obstructive pulmonary disease, unspecified - Heart failure, unspecified - Nicotine dependence, unspecified, uncomplicated - Unspecified abdominal pain 09/22/2023 12:[address] [facility] [place] TYPE: Emergency COMPLAINT: - LEFT LEG INJURY DIAGNOSES: - Other and unspecified overexertion or strenuous movements or postures, initial encounter - Other mcfp (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 - Pain in left ankle and joints of left foot - Sprain of unspecified ligament of left ankle, initial encounter INPATIENT VISIT TRACKING (12 MO.) 01/31/2024 15:39 [facility] [place] TYPE: Medical Surgical DIAGNOSES: - Acute on chronic systolic (congestive) heart failure - Cardiac arrest, cause unspecified - Cardiac Arrest 01/30/2024 03:43 [facility] [place] TYPE: Critical Care COMPLAINT: - CHF EXACERBATION DIAGNOSES: - Acute and subacute hepatic failure without coma - Acute and subacute hepatic failure without coma - Acute kidney failure, unspecified - Acute kidney failure, unspecified - Acute on chronic systolic (congestive) heart failure - Acute on chronic systolic (congestive) heart failure - Acute respiratory failure with hypoxia - Acute respiratory failure with hypoxia - Bifascicular block - Bifascicular block - Cardiac arrest, cause unspecified - Cardiac arrest, cause unspecified - Cardiogenic shock - Cardiogenic shock - Chronic obstructive pulmonary disease with (acute) lower respiratory infection - Chronic obstructive pulmonary disease with (acute) lower respiratory infection - Other psychoactive substance abuse, uncomplicated - Other psychoactive substance abuse, uncomplicated - Patient's unintentional underdosing of medication regimen for other reason - Patient's unintentional underdosing of medication regimen for other reason - Personal history of malignant neoplasm of cervix uteri - Personal history of malignant neoplasm of cervix uteri - Pneumonia, unspecified organism - Pneumonia, unspecified organism - Sepsis, unspecified organism - Severe sepsis with septic shock - Severe sepsis with septic shock - Tobacco use - Tobacco use - Underdosing of multiple unspecified drugs, medicaments and biological substances, initial encounter - Underdosing of multiple unspecified drugs, medicaments and biological substances, initial encounter - Urinary tract infection, site not specified - Urinary tract infection, site not specified 12/07/2023 20:[address] [facility] [place] [...] - Insomnia, unspecified - Insomnia, unspecified - senior care (current) use of anticoagulants - senior care (current) use of anticoagulants - Other specified postprocedural states - Other specified postprocedural states - Other stimulant abuse, uncomplicated - Other stimulant abuse, uncomplicated - Rheumatic disorders of both mitral and tricuspid valves - Rheumatic disorders of both mitral and tricuspid valves [email or web address]
[2024-02-18] MEDS ORDERED: BISACODYL10 MG PR (21:29)
[2024-02-18] MEDS ORDERED: PAIN RELIEF650 MG PO (21:29)
[2024-02-18] MEDS ORDERED: BENZONATATE100 MG PO (21:29)
[2024-02-18] MEDS ORDERED: HEMOCYTE324 MG PO (21:30)
[2024-02-18] MEDS ORDERED: CALCIUM500 M1 PO (21:30)
[2024-02-18] MEDS ORDERED: MUCUS RELIEF600 M1 PO (21:31)
[2024-02-18] MEDS ORDERED: NEURONTIN100 MG PO (21:31)
[2024-02-18] MEDS ORDERED: NARCAN4 MG NS (21:31)
[2024-02-18] MEDS ORDERED: OXYCODONE HCL5 MG PO (21:32)
[2024-02-18] MEDS ORDERED: LIDODERM1 EACH TOP (21:32)
[2024-02-18 21:33] LABS: HEMATOCRIT 32.3 % (35.0-50.0); HEMOGLOBIN 9.7 g/dL (12.0-18.0); RDW 25.9 (10.5-15.0)
[2024-02-18 21:37] LABS: BASOPHILS 0.3 % (0-2); EOSINOPHILS 0.9 % (0-6); LYMPHOCYTES 17.1 % (24-44); MCH 23.9 (27-36); MCHC 30.2 g/dl (30-36); MCV 79.2 fl (81-99); MONOCYTES 8.4 % (0-12); NEUTROPHILS 73.3 % (39-80); PLATELET COUNT 393 K/uL (140-440); RBC 4.07 M/ul (4.3-5.7)
[2024-02-18 21:58] LABS: ALBUMIN 2.9 g/dL (3.4-5.0); ALBUMIN/GLOBULIN RATIO 0.64 (1.1-2.4); ANION GAP 14.2 (7-21); BILIRUBIN, TOTAL 0.8 ng/dL (0.2-1.0); BUN/CREATININE RATIO 17.75 (6.0-28.6); CALCIUM 8.2 mg/dL (8.5-10.1); CREATININE, SERUM 1.07 mg/dL (0.55-1.02); MAGNESIUM 1.9 mg/dL (1.8-2.4); POTASSIUM 4.2 mmol/L (3.5-5.1); PROTEIN, TOTAL 7.4 g/dL (6.4-8.2)
[2024-02-18] MEDS ORDERED: FUROSEMIDE 40 MG/4 ML VIAL IV ONE (22:15)
[2024-02-18 23:09] LABS: BILIRUBIN, URINE NEGATIVE (negative); BLOOD/HGB, URINE NEGATIVE (Negative); KETONE, URINE NEGATIVE (Negative); LEUK ESTERASE, URINE NEGATIVE (negative); NITRITE, URINE NEGATIVE (negative)
[2024-02-18 23:24] LABS: AMPHETAMINES, URINE NEGATIVE (NEGATIVE); BARBITURATES, URINE NEGATIVE (NEGATIVE); BENZODIAZEPINE, URINE NEGATIVE (NEGATIVE); BUPRENORPHINE, URINE NEGATIVE (NEGATIVE); CANNABINOID, URINE NEGATIVE (NEGATIVE); COCAINE, URINE NEGATIVE (NEGATIVE); ECSTASY, URINE NEGATIVE (NEGATIVE); FENTANYL, URINE NEGATIVE (NEGATIVE); METHADONE, URINE NEGATIVE (NEGATIVE); OPIATES, URINE NEGATIVE (NEGATIVE); OXYCODONE, URINE NEGATIVE (NEGATIVE); PHENCYCLIDINE, URINE NEGATIVE (NEGATIVE)
[2024-02-19 00:01] LABS: PARTIAL THROMBOPLASTIN TIME 30.1 Sec (22.9-41.3)
[2024-02-19 00:02] LABS: INR 1.09 (0.80-1.30); PROTIME 13.4 Sec (11.2-14.2)
[2024-02-19] MEDS ORDERED: XARELTO1 EACH PO (00:39)
[2024-02-19] MEDS ORDERED: LASIX40 MG PO (00:39)
[2024-02-19] MEDS ORDERED: Rivaroxaban 10 MG TAB PO ONE (00:45)
[2024-02-19 01:39] VITALS: BP 110/67
--- NOTE | 2024-02-19 12:19 | EKG ---
[facility] [address] [facility] [place] [address] Signed Sinus tachycardia with occasional premature ventricular complexes Low voltage QRS Right bundle branch block Abnormal ECG When compared with ECG of 31-JAN-2024 10:47, premature ventricular complexes are now present Nonspecific T wave abnormality now evident in Inferior leads Confirmed by Christiana Gama MD ([id number]) on 02/19/2024 12:18:43 PM Electronically Signed By: CHRISTIANA GAMA DO 02/19/24 1219 PATIENT NAME: HERMES RING Electrocardiogram DATE OF : 66 PHYSICIAN: CHRISTIANA GAMA DO REPORT #: [id number] REPORT IS CONFIDENTIAL AND NOT TO BE RELEASED WITHOUT AUTHORIZATION
== END 2024-02-19 01:41 | disposition home or self-care (01) ==
LOC: ED 21:22
PROVIDERS: Internal Medicine
DX: I26.99 Other pulmonary embolism without acute cor pulmonale (principal); I50.9 Heart failure, unspecified; I25.2 Old myocardial infarction; J44.9 Chronic obstructive pulmonary disease, unspecified; Z79.899 Other long term (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
CPT/HCPCS: 36415; 71045; 71260; 74177; 80053; 80307; 81003; 83690; 83735; 83880; 84484; 85025; 85060; 85379; 85610; 85730; 93005; 93010; 99285-25; J1940; Q9967

== ENCOUNTER 2024-03-20 19:42 | Emergency (ER) | payer OTHER ==
[~2024-03-20] VITALS: Ht 154.9 cm; Wt 89.8 kg
[~2024-03-20 19:42] MED LIST changes: +BENZONATATE100 MG PO; +BISACODYL10 MG PR; +CALCIUM500 M1 PO; +HEMOCYTE324 MG PO; +LIDODERM1 EACH TOP; +MUCUS RELIEF600 M1 PO; +NARCAN4 MG NS; +NEURONTIN100 MG PO; +OXYCODONE HCL5 MG PO; +PAIN RELIEF650 MG PO; +XARELTO1 EACH PO
--- OUTSIDE RECORDS SUMMARY | 2024-03-20 19:49 | XMS ---
PreManage Notification: HERMES RING Security Remote Coders Events No recent Security Events currently on file CRITERIA MET - 6 ED Visits in 6 Months CARE PROVIDERS CELSA MINAYA Nurse Practitioner: Family [facility] PHONE: [phone] VANIA RODRIGUES Physician Grounding Engineer Gracy COLLINS PHONE: [phone] MARK ANDREW Nurse Practitioner: Adult Health [facility] PHONE: [phone] Josy has no Care Guidelines for this patient. E.D. VISIT COUNT (12 MO.) 8 [facility] NOTE: Visits indicate total known visits. ED/UCC VISIT TRACKING (12 MO.) 03/20/2024 19:43 [facility] [place] TYPE: Emergency COMPLAINT: - CHEST PAIN 02/18/2024 21:22 [facility] [place] TYPE: Emergency COMPLAINT: - SOB DIAGNOSES: - Chronic obstructive pulmonary disease, unspecified - Heart failure, unspecified - Old myocardial infarction - Other fpc (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 - Other pulmonary embolism without acute cor pulmonale - Shortness of breath 01/29/2024 22:[address] [facility] [place] TYPE: Emergency COMPLAINT: - SOB 01/29/2024 10:[address] [facility] [place] TYPE: Emergency COMPLAINT: - ABDOMINAL PAIN DIAGNOSES: - Bifascicular block - Chronic obstructive pulmonary disease, unspecified - Epigastric pain - Heart failure, unspecified - Localized swelling, mass and lump, head - Other fpc (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 - Upper abdominal pain, unspecified 2024 05:[address] [facility] [place] TYPE: Emergency COMPLAINT: - SHORTNESS OF BREATH DIAGNOSES: - Chronic obstructive pulmonary disease with (acute) lower respiratory infection - Heart failure, unspecified - Other fpc (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 - Pneumonia, unspecified organism - Shortness of breath 01/18/2024 16:45 [facility] [place] TYPE: Emergency DIAGNOSES: - HEART [...] INPATIENT VISIT TRACKING (12 MO.) 01/31/2024 15:39 [facility] [place] TYPE: Medical Surgical DIAGNOSES: - [...] - Insomnia, unspecified - Insomnia, unspecified - group home (current) use of anticoagulants - terminologist (current) use of anticoagulants - Other specified postprocedural states - Other specified postprocedural states - Other stimulant abuse, uncomplicated - Other stimulant abuse, uncomplicated - Rheumatic disorders of both mitral and tricuspid valves - Rheumatic disorders of both mitral and tricuspid valves [email or web address]
[2024-03-20] MEDS ORDERED: NITROGLYCERIN 0.4 MG SUBL SL PRN (20:00)
[2024-03-20 20:05] LABS: BASOPHILS 0.9 % (0-2); EOSINOPHILS 2.4 % (0-6); HEMATOCRIT 32.7 % (35.0-50.0); LYMPHOCYTES 22.4 % (24-44); MCHC 30.6 g/dl (30-36); MCV 78.5 fl (81-99); MONOCYTES 9.2 % (0-12); NEUTROPHILS 65.1 % (39-80); PLATELET COUNT 385 K/uL (140-440); RBC 4.16 M/ul (4.3-5.7); RDW 22.1 (10.5-15.0)
[2024-03-20 20:24] LABS: ALBUMIN 3.4 g/dL (3.4-5.0); ALBUMIN/GLOBULIN RATIO 0.92 (1.1-2.4); ANION GAP 15.5 (7-21); BILIRUBIN, TOTAL 0.6 ng/dL (0.2-1.0); BUN/CREATININE RATIO 16.12 (6.0-28.6); CALCIUM 8.3 mg/dL (8.5-10.1); CREATININE, SERUM 0.93 mg/dL (0.55-1.02); MAGNESIUM 1.9 mg/dL (1.8-2.4); POTASSIUM 3.5 mmol/L (3.5-5.1); PROTEIN, TOTAL 7.1 g/dL (6.4-8.2)
[2024-03-20 20:29] LABS: INR 1.09 (0.80-1.30)
[2024-03-20] MEDS ORDERED: FUROSEMIDE 40 MG/4 ML VIAL IV ONE (20:45)
[2024-03-20] MEDS ORDERED: METOPROLOL TARTRATE 5 MG/5 ML VIAL IV ONE ×2 (20:45→22:45)
[2024-03-20] MEDS ORDERED: POTASSIUM CHLORIDE 10 MEQ TABCR PO ONE (20:45)
[2024-03-20 21:53] LABS: BILIRUBIN, URINE NEGATIVE (negative); BLOOD/HGB, URINE NEGATIVE (Negative); KETONE, URINE NEGATIVE (Negative); LEUK ESTERASE, URINE NEGATIVE (negative); NITRITE, URINE NEGATIVE (negative); PH, URINE 5.5 (5-7)
[2024-03-20 22:09] LABS: AMPHETAMINES, URINE NEGATIVE (NEGATIVE); BARBITURATES, URINE NEGATIVE (NEGATIVE); BENZODIAZEPINE, URINE NEGATIVE (NEGATIVE); BUPRENORPHINE, URINE NEGATIVE (NEGATIVE); CANNABINOID, URINE NEGATIVE (NEGATIVE); COCAINE, URINE NEGATIVE (NEGATIVE); ECSTASY, URINE NEGATIVE (NEGATIVE); FENTANYL, URINE NEGATIVE (NEGATIVE); METHADONE, URINE NEGATIVE (NEGATIVE); OPIATES, URINE NEGATIVE (NEGATIVE); OXYCODONE, URINE NEGATIVE (NEGATIVE); PHENCYCLIDINE, URINE NEGATIVE (NEGATIVE)
[2024-03-20 23:58] VITALS: BP 101/66
--- NOTE | 2024-03-21 20:35 | EKG ---
[facility] [address] [place], [place] [address] Signed Sinus tachycardia with occasional premature ventricular complexes Possible Left atrial enlargement Right bundle branch block Left posterior fascicular block Bifascicular block Abnormal ECG No previous ECGs available Confirmed by Christiana Gama DO ([id number]) on 03/21/2024 8:35:13 PM Electronically Signed By: CHRISTIANA GAMA DO 03/21/242034 PATIENT NAME: HERMES RING Electrocardiogram DATE OF : 66 PHYSICIAN: CHRISTIANA GAMA DO REPORT #: [id number] REPORT IS CONFIDENTIAL AND NOT TO BE RELEASED WITHOUT AUTHORIZATION
== END 2024-03-20 23:54 | disposition home or self-care (01) ==
LOC: ED 19:42
PROVIDERS: Internal Medicine
DX: R07.89 Other chest pain (principal); I50.9 Heart failure, unspecified; I25.2 Old myocardial infarction; J44.9 Chronic obstructive pulmonary disease, unspecified; Z79.899 Other long term (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
CPT/HCPCS: 36415; 71045; 80053; 80307; 81003; 83735; 83880; 84484; 85025; 85060; 85610; 93005; 93010; 96374; 96375; 96376; 99285-25; A9270; J1940

== ENCOUNTER 2024-07-06 17:48 | Emergency (ER) | payer OTHER ==
[~2024-07-06] VITALS: Ht 154.9 cm; Wt 49.6 kg
--- OUTSIDE RECORDS SUMMARY | 2024-07-06 17:54 | XMS ---
PreManage Notification: HERMES RING Security Applications Support Engineer Events No recent Security Events currently on file CRITERIA MET - 6 ED Visits in 6 Months CARE PROVIDERS CELSA MINAYA Nurse Practitioner: Family [facility] PHONE: [phone] VANIA RODRIGUES Physician Sign Builder Gracy COLLINS PHONE: [phone] MARK ANDREW Nurse Practitioner: Adult Health [facility] PHONE: [phone] Josy has no Care Guidelines for this patient. E.D. VISIT COUNT (12 MO.) 9 KARISSA Iyer Shabbir [facility] TOTAL 10 NOTE: Visits indicate total known visits. ED/UCC VISIT TRACKING (12 MO.) 07/06/2024 17:48 [facility] [place] TYPE: Emergency COMPLAINT: - ARM PAIN 03/20/2024 19:43 [facility] [place] TYPE: Emergency COMPLAINT: - CHEST PAIN DIAGNOSES: - Chronic obstructive pulmonary disease, unspecified - Heart failure, unspecified - Old myocardial infarction - Other chest pain - Other halfway (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 02/18/2024 21:[address] [facility] [place] TYPE: Emergency COMPLAINT: - SOB DIAGNOSES: - Chronic obstructive pulmonary disease, unspecified - Heart failure, unspecified - Old myocardial infarction - Other halfway (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 - Other pulmonary embolism without acute cor pulmonale - Shortness of breath 01/29/2024 22:[address] [facility] [place] TYPE: Emergency COMPLAINT: - SOB 01/29/2024 10:[address] [facility] [place] TYPE: Emergency COMPLAINT: - ABDOMINAL PAIN DIAGNOSES: - Bifascicular block - Chronic obstructive pulmonary disease, unspecified - Epigastric pain - Heart failure, unspecified - Localized swelling, mass and lump, head - Other halfway (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 - Upper abdominal pain, unspecified 2024 05:40 [facility] [place] TYPE: Emergency COMPLAINT: - SHORTNESS OF BREATH DIAGNOSES: - Chronic obstructive pulmonary disease with (acute) lower respiratory infection - Heart failure, unspecified - Other halfway (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 - Pneumonia, unspecified organism - Shortness of breath 01/18/2024 16:45 [facility] [place] TYPE: Emergency DIAGNOSES: - HEART [...] movements or postures, initial encounter - Other halfway (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 - Pain in left [...] - Insomnia, unspecified - Insomnia, unspecified - termite treater helper (current) use of anticoagulants - termite treater helper (current) use of anticoagulants - Other specified postprocedural states - Other specified postprocedural states - Other stimulant abuse, uncomplicated - Other stimulant abuse, uncomplicated - Rheumatic disorders of both mitral and tricuspid valves - Rheumatic disorders of both mitral and tricuspid valves [email or web address]
[2024-07-06 19:18] VITALS: BP 134/84
== END 2024-07-06 19:18 | disposition home or self-care (01) ==
LOC: ED 17:48
DX: S60.211A Contusion of right wrist, initial encounter (principal); I50.9 Heart failure, unspecified; J44.9 Chronic obstructive pulmonary disease, unspecified; W22.8XXA Striking against or struck by other objects, initial encounter
CPT/HCPCS: 73110; 99283

== ENCOUNTER 2024-09-11 21:04 | Emergency (ER) | payer OTHER ==
[~2024-09-11] VITALS: Ht 154.9 cm; Wt 53.0 kg
[2024-09-11] MEDS ORDERED: MORPHINE SULFATE 4 MG/ML VIAL IV ONE (21:15)
[2024-09-11] MEDS ORDERED: SODIUM CHLORIDE 0.9% 1,000 ML IV ONE (21:15)
[2024-09-11] MEDS ORDERED: ondansetron HCL 4 MG/2 ML VIAL IV ONE (21:15)
[2024-09-11 21:25] LABS: BASOPHILS 0.4 % (0.1-1.2); EOSINOPHILS 1.4 % (0.7-5.8); HEMATOCRIT 34.6 % (34.1-44.9); HEMOGLOBIN 11.3 g/dL (11.2-15.7); LYMPHOCYTES 22.7 % (19.3-51.7); MCH 28.8 PG (25.6-32.2); MCHC 32.7 g/dL (32.2-35.5); MONOCYTES 6.9 % (4.7-12.5); NEUTROPHILS 68.2 % (34.0-71.1); PLATELET COUNT 301 K/uL (182-369); RBC 3.93 M/uL (3.93-5.22)
[2024-09-11 21:41] LABS: ALBUMIN 3.7 g/dL (3.4-5.0); ALBUMIN/GLOBULIN RATIO 1.19 (1.1-2.4); ANION GAP 16.2 (7-21); BILIRUBIN, TOTAL 1.9 mg/dL (0.2-1.0); BUN/CREATININE RATIO 17.43 (6.0-28.6); CREATININE, SERUM 1.09 mg/dL (0.55-1.02); POTASSIUM 4.2 mmol/L (3.5-5.1); PROTEIN, TOTAL 6.8 g/dL (6.4-8.2)
[2024-09-11] MEDS ORDERED: LOMOTIL TABLET1 EACH PO (23:44)
[2024-09-11] MEDS ORDERED: ONDANSETRON ODT8 MG PO (23:44)
[2024-09-11] MEDS ORDERED: ONDANSETRON 4 MG HOME.PACK SL ONE (23:45)
[2024-09-12 00:25] VITALS: BP 115/94
== END 2024-09-12 00:27 | disposition home or self-care (01) ==
LOC: ED 21:04
PROVIDERS: Family Medicine
DX: K52.9 Noninfective gastroenteritis and colitis, unspecified (principal); I50.9 Heart failure, unspecified; I25.2 Old myocardial infarction; J44.9 Chronic obstructive pulmonary disease, unspecified; Z79.899 Other long term (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
CPT/HCPCS: 36415; 74177; 80053; 83690; 83735; 85025; 96361; 96375; 99284-25; A9270; J2270; J2405; J7030; Q9967

== ENCOUNTER 2024-09-19 17:06 | Emergency (ER) | payer OTHER ==
[~2024-09-19] VITALS: Ht 154.9 cm; Wt 48.0 kg
--- NOTE | ~2024-09-19 | EKG ---
[facility] [address] [facility], [place] [address] Draft EK completed, results pending confirmation PATIENT NAME: HERMES RING JESSICA Electrocardiogram DATE OF : 66 PHYSICIAN: PRELIMINARY REPORT #: [id number] REPORT IS CONFIDENTIAL AND NOT TO BE RELEASED WITHOUT AUTHORIZATION
[~2024-09-19 17:06] MED LIST changes: +LOMOTIL TABLET1 EACH PO; +ONDANSETRON ODT8 MG PO
--- OUTSIDE RECORDS SUMMARY | 2024-09-19 17:13 | XMS ---
PreManage Notification: HERMES RING Security Fish Farm Laborer Events No recent Security Events currently on file CRITERIA MET - [facility] - 2 Visits in 30 Days CARE PROVIDERS CELSA MINAYA Nurse Practitioner: Family [facility] PHONE: [phone] VANIA RODRIGUES Physician Dish Person Gracy COLLINS PHONE: [phone] MARK ANDREW Nurse Practitioner: Adult [facility] PHONE: [phone] Josy has no Care Guidelines for this patient. E.D. VISIT COUNT (12 MO.) 11 [facility] NOTE: Visits indicate total known visits. ED/UCC VISIT TRACKING (12 MO.) 09/19/2024 17:06 [facility] [place] TYPE: Emergency COMPLAINT: - WEAKNESS 09/11/2024 21:05 [facility] [place] TYPE: Emergency COMPLAINT: - WEAKNESS DIAGNOSES: - Chronic obstructive pulmonary disease, unspecified - Heart failure, unspecified - Nausea with vomiting, unspecified - Noninfective gastroenteritis and colitis, unspecified - Old myocardial infarction - Other fdc (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 07/06/2024 17:48 [facility] [place] TYPE: Emergency COMPLAINT: - ARM PAIN DIAGNOSES: - Chronic obstructive pulmonary disease, unspecified - Contusion of right wrist, initial encounter - Heart failure, unspecified - Striking against or struck by other objects, initial encounter 03/20/2024 19:43 [facility] [place] TYPE: Emergency COMPLAINT: - CHEST PAIN DIAGNOSES: - Chronic obstructive pulmonary disease, unspecified - Heart failure, unspecified - Old myocardial infarction - Other chest pain - Other terminal superintendent (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 02/18/2024 21:22 [facility] [place] TYPE: Emergency COMPLAINT: - SOB DIAGNOSES: - Chronic obstructive pulmonary disease, unspecified - Heart failure, unspecified - Old myocardial infarction - Other fdc (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 - Other pulmonary embolism without acute cor pulmonale - Shortness of breath 01/29/2024 22:42 [facility] [place] TYPE: Emergency COMPLAINT: - SOB 01/29/2024 10:35 [facility] [place] TYPE: Emergency COMPLAINT: - ABDOMINAL PAIN DIAGNOSES: - Bifascicular block - Chronic obstructive pulmonary disease, unspecified - Epigastric pain - Heart failure, unspecified - Localized swelling, mass and lump, head - Other terminal superintendent (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 - Upper abdominal pain, unspecified 2024 05:40 [facility] [place] TYPE: Emergency COMPLAINT: - SHORTNESS OF BREATH DIAGNOSES: - Chronic obstructive pulmonary disease with (acute) lower respiratory infection - Heart failure, unspecified - Other terminal superintendent (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 - Pneumonia, unspecified organism - Shortness of breath 01/18/2024 16:45 [facility] [place] TYPE: Emergency DIAGNOSES: - [...] movements or postures, initial encounter - Other terminal superintendent (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 - Pain in left [...] - Insomnia, unspecified - Insomnia, unspecified - alf (current) use of anticoagulants - long term care social worker (current) use of anticoagulants - Other specified postprocedural states - Other specified postprocedural states - Other stimulant abuse, uncomplicated - Other stimulant abuse, uncomplicated - Rheumatic disorders of both mitral and tricuspid valves - Rheumatic disorders of both mitral and tricuspid valves [email or web address]
[2024-09-19] MEDS ORDERED: ALBUTEROL/IPRATROPIUM 3 ML NEB INH PRN (17:30)
[2024-09-19 17:43] LABS: BASOPHILS 0.2 % (0.1-1.2); EOSINOPHILS 0.9 % (0.7-5.8); LYMPHOCYTES 15.4 % (19.3-51.7); MCH 27.5 PG (25.6-32.2); MCHC 31.6 g/dL (32.2-35.5); MCV 87.1 fL (79.4-94.8); MONOCYTES 4.8 % (4.7-12.5); NEUTROPHILS 78.5 % (34.0-71.1); RBC 4.03 M/uL (3.93-5.22)
[2024-09-19 18:08] LABS: ALT (SGPT) 90.0 U/L (14-59); AST (SGOT) 33.0 U/L (15-37); GLOMERULAR FILTRATION RATE,EST 52.0 mL/min (>60); PROTEIN, TOTAL 7.1 g/dL (6.4-8.2); UREA NITROGEN 17.0 mg/dL (7-18)
[2024-09-19 19:12] VITALS: BP 121/79
[2024-09-19] MEDS ORDERED: FUROSEMIDE 40 MG TAB PO ONE (19:15)
== END 2024-09-19 19:19 | disposition home or self-care (01) ==
LOC: ED 17:06
PROVIDERS: Emergency Medicine
DX: I50.9 Heart failure, unspecified (principal); I25.2 Old myocardial infarction; J44.9 Chronic obstructive pulmonary disease, unspecified; Z79.899 Other long term (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
CPT/HCPCS: 36415; 71045; 80053; 83735; 83880; 84484; 85025; 93005; 93010; 94640; 99285-25

== ENCOUNTER 2024-09-23 08:02 | Emergency (ER) | payer OTHER ==
[~2024-09-23] VITALS: Ht 154.9 cm; Wt 37.3 kg
--- OUTSIDE RECORDS SUMMARY | 2024-09-23 08:08 | XMS ---
PreManage Notification: HERMES RING Security Supervisor Vendor Quality Events No recent Security Events currently on file CRITERIA MET - [facility] - 2 Visits in 30 Days CARE PROVIDERS CELSA MINAYA Nurse Practitioner: [facility] PHONE: [phone] VANIA RODRIGUES Physician Pre Press Operator Gracy COLLINS PHONE: [phone] MARK ANDREW Nurse Practitioner: [facility] PHONE: [phone] Josy has no Care Guidelines for this patient. E.D. VISIT COUNT (12 MO.) 11 [facility] NOTE: Visits indicate total known visits. ED/UCC VISIT TRACKING (12 MO.) 09/23/2024 08:02 [facility] [place] TYPE: Emergency COMPLAINT: - SOB 09/19/2024 17:06 [facility] [place] TYPE: Emergency COMPLAINT: - WEAKNESS DIAGNOSES: - Chronic obstructive pulmonary disease, unspecified - Heart failure, unspecified - Old myocardial infarction - Other usp (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 - Shortness of breath 09/11/2024 21:05 [facility] [place] TYPE: Emergency COMPLAINT: - WEAKNESS DIAGNOSES: - Chronic obstructive pulmonary disease, unspecified - Heart failure, unspecified - Nausea with vomiting, unspecified - Noninfective gastroenteritis and colitis, unspecified - Old myocardial infarction - Other service coordinator elderly facility (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 07/06/2024 17:48 KARISSA [facility] [...] infarction - Other chest pain - Other usp (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 02/18/2024 21:22 [facility] [place] TYPE: Emergency COMPLAINT: - SOB DIAGNOSES: - Chronic obstructive pulmonary disease, unspecified - Heart failure, unspecified - Old myocardial infarction - Other usp (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 - Other pulmonary embolism without acute cor pulmonale - Shortness of breath 01/29/2024 22:42 [facility] [place] TYPE: Emergency COMPLAINT: - SOB 01/29/2024 10:35 [facility] [place] TYPE: Emergency COMPLAINT: - ABDOMINAL PAIN DIAGNOSES: - Bifascicular block - Chronic obstructive pulmonary disease, unspecified - Epigastric pain - Heart failure, unspecified - Localized swelling, mass and lump, head - Other service coordinator elderly facility (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 - Upper abdominal pain, unspecified 2024 05:40 [facility] [place] TYPE: Emergency COMPLAINT: - SHORTNESS OF BREATH DIAGNOSES: - Chronic obstructive pulmonary disease with (acute) lower respiratory infection - Heart failure, unspecified - Other service coordinator elderly facility (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 - Pneumonia, unspecified organism - Shortness of breath 01/18/2024 16:45 [facility] [place] TYPE: Emergency DIAGNOSES: - HEART PROBLEMS 12/07/2023 14:33 [facility] [place] TYPE: Emergency COMPLAINT: - TROUBLE BREATHING 11/21/2023 22:08 [facility] [place] TYPE: Emergency COMPLAINT: - ABDOMINAL PAIN DIAGNOSES: - Chronic obstructive pulmonary disease, unspecified - Heart failure, unspecified - Nicotine dependence, unspecified, uncomplicated - Unspecified abdominal pain INPATIENT VISIT TRACKING (12 MO.) 01/31/2024 15:39 [facility] [place] TYPE: Medical Surgical DIAGNOSES: - Acute [...] tract infection, site not specified 12/07/2023 20:28 [facility] [place] TYPE: Medical [...] - Insomnia, unspecified - Insomnia, unspecified - wellness instructor (current) use of anticoagulants - wellness instructor (current) use of anticoagulants - Other specified postprocedural states - Other specified postprocedural states - Other stimulant abuse, uncomplicated - Other stimulant abuse, uncomplicated - Rheumatic disorders of both mitral and tricuspid valves - Rheumatic disorders of both mitral and tricuspid valves [email or web address]
[2024-09-23 08:14] LABS: BASOPHILS 0.2 % (0.1-1.2); EOSINOPHILS 1.5 % (0.7-5.8); LYMPHOCYTES 16.3 % (19.3-51.7); MCH 27.4 PG (25.6-32.2); MCHC 31.7 g/dL (32.2-35.5); MCV 86.3 fL (79.4-94.8); MONOCYTES 6.0 % (4.7-12.5); NEUTROPHILS 75.7 % (34.0-71.1); RBC 3.80 M/uL (3.93-5.22)
[2024-09-23] MEDS ORDERED: FUROSEMIDE 40 MG/4 ML VIAL IV ONE (08:30)
[2024-09-23 08:36] LABS: ALT (SGPT) 44.0 U/L (14-59); AST (SGOT) 24.0 U/L (15-37); GLOMERULAR FILTRATION RATE,EST 65.0 mL/min (>60); PROTEIN, TOTAL 6.8 g/dL (6.4-8.2); UREA NITROGEN 12.0 mg/dL (7-18)
[2024-09-23 11:24] VITALS: BP 118/92
--- NOTE | 2024-09-23 12:58 | EKG ---
[facility] [address] [place] [address] Signed Sinus tachycardia Possible Left atrial enlargement Right bundle branch block Left posterior fascicular block Bifascicular block Abnormal ECG When compared with ECG of 19-SEP-2024 17:36, No significant change was found Confirmed by Darion Monaco MD ([id number]) on 09/23/2024 12:58:07 PM Electronically Signed By: DARION MONACO MD 09/23/24 1258 PATIENT NAME: HERMES RING Electrocardiogram DATE OF : 66 PHYSICIAN: DARION MONACO MD REPORT #: [id number] REPORT IS CONFIDENTIAL AND NOT TO BE RELEASED WITHOUT AUTHORIZATION
== END 2024-09-23 11:24 | disposition home or self-care (01) ==
LOC: ED 08:02
PROVIDERS: Emergency Medicine
DX: I50.9 Heart failure, unspecified (principal); J44.9 Chronic obstructive pulmonary disease, unspecified; Z79.899 Other long term (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; Z79.01 Long term (current) use of anticoagulants
CPT/HCPCS: 36415; 71045; 71260; 80053; 83735; 83880; 84484; 85025; 93005; 93010; 99285-25; J1938; Q9967

== ENCOUNTER 2024-10-02 19:26 | Emergency (ER) | payer OTHER ==
[~2024-10-02] VITALS: Ht 154.9 cm; Wt 49.2 kg
--- OUTSIDE RECORDS SUMMARY | 2024-10-02 19:33 | XMS ---
PreManage Notification: HERMES RING Security Electronic Gluer Events No recent Security Events currently on file CRITERIA MET - [facility] - 2 Visits in 30 Days CARE PROVIDERS CELSA MINAYA Nurse Practitioner: [facility] PHONE: [phone] VANIA RODRIGUES Physician Painting Department Supervisor Gracy COLLINS PHONE: [phone] MARK ANDREW Nurse Practitioner: [facility] PHONE: [phone] Josy has no Care Guidelines for this patient. E.D. VISIT COUNT (12 MO.) [address] [facility] T[facility] 13 NOTE: Visits indicate total known visits. ED/UCC VISIT TRACKING (12 MO.) 10/02/2024 19:26 [facility] [place] TYPE: Emergency COMPLAINT: - HARD TO BREATHE 09/23/2024 08:02 [facility] [place] TYPE: Emergency COMPLAINT: - SOB DIAGNOSES: - Chronic obstructive pulmonary disease, unspecified - Dyspnea, unspecified - Heart failure, unspecified - halfway (current) use of anticoagulants - Other half-way (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 09/19/2024 17:06 [facility] [place] TYPE: Emergency COMPLAINT: - WEAKNESS DIAGNOSES: - Chronic obstructive pulmonary disease, unspecified - Heart failure, unspecified - Old myocardial infarction - Other half-way (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 - Shortness of breath 09/11/2024 21:05 [facility] [place] TYPE: Emergency COMPLAINT: - WEAKNESS DIAGNOSES: - Chronic obstructive pulmonary disease, unspecified - Heart failure, unspecified - Nausea with vomiting, unspecified - Noninfective gastroenteritis and colitis, unspecified - Old myocardial infarction - Other long term care administrator (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 07/06/2024 17:48 KARISSA Powell [...] infarction - Other chest pain - Other half-way (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 02/18/2024 21:22 [facility] [place] TYPE: Emergency COMPLAINT: - SOB DIAGNOSES: - Chronic obstructive pulmonary disease, unspecified - Heart failure, unspecified - Old myocardial infarction - Other long term care administrator (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 - Other pulmonary embolism without acute cor pulmonale - Shortness of breath 01/29/2024 22:42 [facility] [place] TYPE: Emergency COMPLAINT: - SOB 01/29/2024 10:35 [facility] [place] TYPE: Emergency COMPLAINT: - ABDOMINAL PAIN DIAGNOSES: - Bifascicular block - Chronic obstructive pulmonary disease, unspecified - Epigastric pain - Heart failure, unspecified - Localized swelling, mass and lump, head - Other half-way (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 - Upper abdominal pain, unspecified 2024 05:40 [facility] [place] TYPE: Emergency COMPLAINT: - SHORTNESS OF BREATH DIAGNOSES: - Chronic obstructive pulmonary disease with (acute) lower respiratory infection - Heart failure, unspecified - Other long term care administrator (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 - Pneumonia, unspecified organism - Shortness of breath 01/18/2024 16:45 [facility] [place] TYPE: Emergency DIAGNOSES: - HEART PROBLEMS 12/07/2023 14:33 [facility] [place] TYPE: Emergency COMPLAINT: - TROUBLE BREATHING 11/21/2023 22:08 [facility] [place] TYPE: Emergency COMPLAINT: - ABDOMINAL PAIN DIAGNOSES: - Chronic obstructive pulmonary disease, unspecified - Heart failure, unspecified - Nicotine dependence, unspecified, uncomplicated - Unspecified abdominal pain INPATIENT VISIT TRACKING (12 MO.) 01/31/2024 15:39 [facility] [place] TYPE: Medical Surgical DIAGNOSES: - Acute [...] Insomnia, unspecified - Insomnia, unspecified - termite exterminator (current) use of anticoagulants - halfway (current) use of anticoagulants - Other specified postprocedural states - Other specified postprocedural states - Other stimulant abuse, uncomplicated - Other stimulant abuse, uncomplicated - Rheumatic disorders of both mitral and tricuspid valves - Rheumatic disorders of both mitral and tricuspid valves [email or web address]
[2024-10-02 20:43] LABS: BASOPHILS 0.3 % (0.1-1.2); EOSINOPHILS 1.2 % (0.7-5.8); LYMPHOCYTES 19.8 % (19.3-51.7); MCH 27.4 PG (25.6-32.2); MCHC 31.3 g/dL (32.2-35.5); MCV 87.6 fL (79.4-94.8); MONOCYTES 5.3 % (4.7-12.5); NEUTROPHILS 73.1 % (34.0-71.1); RBC 4.20 M/uL (3.93-5.22)
[2024-10-02 21:08] LABS: ALT (SGPT) 19.0 U/L (14-59); AST (SGOT) 19.0 U/L (15-37); GLOMERULAR FILTRATION RATE,EST 66.0 mL/min (>60); PROTEIN, TOTAL 7.1 g/dL (6.4-8.2); UREA NITROGEN 11.0 mg/dL (7-18)
[2024-10-02] MEDS ORDERED: LASIX40 MG PO (21:13)
[2024-10-02] MEDS ORDERED: POTASSIUM CHLO10 ME1 PO (21:13)
[2024-10-02 21:52] VITALS: BP 151/110
--- NOTE | 2024-10-03 12:59 | EKG ---
[facility] [address] [facility] [place] [address] Signed Sinus tachycardia Left atrial enlargement Low voltage QRS Right bundle branch block Left posterior fascicular block Bifascicular block Abnormal ECG When compared with ECG of 23-SEP-2024 08:10, No significant change was found Confirmed by Christiana Gama DO ([id number]) on 10/03/2024 12:59:07 PM Electronically Signed By: CHRISTIANA GAMA DO 10/03/24 1259 PATIENT NAME: HERMES RING Electrocardiogram DATE OF : 66 PHYSICIAN: CHRISTIANA GAMA DO REPORT #: [id number] REPORT IS CONFIDENTIAL AND NOT TO BE RELEASED WITHOUT AUTHORIZATION
== END 2024-10-02 21:50 | disposition home or self-care (01) ==
LOC: ED 19:26
PROVIDERS: Family Medicine
DX: I50.9 Heart failure, unspecified (principal); J44.9 Chronic obstructive pulmonary disease, unspecified
CPT/HCPCS: 36415; 71045; 80053; 83735; 83880; 84484; 85025; 93005; 93010; 99285-25

== ENCOUNTER 2024-10-03 14:00 | Emergency (ER) | payer OTHER ==
[~2024-10-03] VITALS: Ht 154.9 cm; Wt 49.2 kg
[~2024-10-03 14:00] MED LIST changes: +POTASSIUM CHLO10 ME1 PO
--- OUTSIDE RECORDS SUMMARY | 2024-10-03 14:07 | XMS ---
PreManage Notification: HERMES RING Security Geographical Historian Events No recent Security Events currently on file CRITERIA MET - 6 ED Visits in 6 Months - [facility] - 2 Visits in 30 Days CARE PROVIDERS KALLIE EARLY [facility] 10/03/2024-Current PHONE: Unknown CELSA MINAYA Nurse Practitioner: Family Current PHONE: [phone] VANIA RODRIGUES Physician Credit Collections Rep Gracy COLLINS PHONE: [phone] MARK ANDREW Nurse Practitioner: [facility] PHONE: [phone] Josy has no Care Guidelines for this patient. Won VISIT COUNT (12 MO.) 13 [facility] 14 NOTE: Visits indicate total known visits. ED/UCC VISIT TRACKING (12 MO.) 10/03/2024 14:01 [facility] [place] TYPE: Emergency COMPLAINT: - ABDOMINAL PAIN 10/02/2024 19:26 [facility] [place] TYPE: Emergency COMPLAINT: - HARD TO BREATHE 09/23/2024 08:02 [facility] [place] TYPE: Emergency COMPLAINT: - SOB DIAGNOSES: - Chronic obstructive pulmonary disease, unspecified - Dyspnea, unspecified - Heart failure, unspecified - exterminator (current) use of anticoagulants - Other oil heaterman (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 09/19/2024 17:06 [facility] [place] TYPE: Emergency COMPLAINT: - WEAKNESS DIAGNOSES: - Chronic obstructive pulmonary disease, unspecified - Heart failure, unspecified - Old myocardial infarction - Other correction (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 - Shortness of breath 09/11/2024 21:05 [facility] [place] TYPE: Emergency COMPLAINT: - WEAKNESS DIAGNOSES: - Chronic obstructive pulmonary disease, unspecified - Heart failure, unspecified - Nausea with vomiting, unspecified - Noninfective gastroenteritis and colitis, unspecified - Old myocardial infarction - Other oil heaterman (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 07/06/2024 17:48 [facility] [place] TYPE: Emergency COMPLAINT: - ARM PAIN DIAGNOSES: - Chronic obstructive pulmonary disease, unspecified - Contusion of right wrist, initial encounter - Heart failure, unspecified - Striking against or struck by other objects, initial encounter 03/20/2024 19:43 [facility] [place] TYPE: Emergency COMPLAINT: - CHEST PAIN DIAGNOSES: - Chronic obstructive pulmonary disease, unspecified - Heart failure, unspecified - Old myocardial infarction - Other chest pain - Other oil heaterman (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 02/18/2024 21:22 [facility] [place] TYPE: Emergency COMPLAINT: - SOB DIAGNOSES: - Chronic obstructive pulmonary disease, unspecified - Heart failure, unspecified - Old myocardial infarction - Other correction (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 - Other pulmonary embolism without acute cor pulmonale - Shortness of breath 01/29/2024 22:42 [facility] [place] TYPE: Emergency COMPLAINT: - SOB 01/29/2024 10:35 [facility] [place] TYPE: Emergency COMPLAINT: - ABDOMINAL PAIN DIAGNOSES: - Bifascicular block - Chronic obstructive pulmonary disease, unspecified - Epigastric pain - Heart failure, unspecified - Localized swelling, mass and lump, head - Other correction (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 - Upper abdominal pain, unspecified 2024 05:40 [facility] [place] TYPE: Emergency COMPLAINT: - SHORTNESS OF BREATH DIAGNOSES: - Chronic obstructive pulmonary disease with (acute) lower respiratory infection - Heart failure, unspecified - Other oil heaterman (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 - Pneumonia, unspecified organism - Shortness of breath 01/18/2024 16:45 [facility] [place] TYPE: Emergency DIAGNOSES: - HEART PROBLEMS 12/07/2023 14:33 [facility] [place] TYPE: Emergency COMPLAINT: - TROUBLE BREATHING 11/21/2023 22:08 [facility] [place] TYPE: Emergency COMPLAINT: - ABDOMINAL PAIN DIAGNOSES: - Chronic obstructive pulmonary disease, unspecified - Heart failure, unspecified - Nicotine dependence, unspecified, uncomplicated - Unspecified abdominal pain INPATIENT VISIT TRACKING (12 MO.) 01/31/2024 15:39 [facility] [place] TYPE: Medical Surgical DIAGNOSES: - Acute [...] - Insomnia, unspecified - Insomnia, unspecified - USP (current) use of anticoagulants - exterminator (current) use of anticoagulants - Other specified postprocedural states - Other specified postprocedural states - Other stimulant abuse, uncomplicated - Other stimulant abuse, uncomplicated - Rheumatic disorders of both mitral and tricuspid valves - Rheumatic disorders of both mitral and tricuspid valves [email or web address]
[2024-10-03] MEDS ORDERED: LIDOCAINE & ANTACID 35 ML BTL PO ONE (14:30)
[2024-10-03] MEDS ORDERED: ONDANSETRON 4 MG TAB ODT SL ONE (15:00)
[2024-10-03 15:40] VITALS: BP 140/115
== END 2024-10-03 15:44 | disposition home or self-care (01) ==
LOC: ED 14:00
DX: R11.2 Nausea with vomiting, unspecified (principal); I25.2 Old myocardial infarction
CPT/HCPCS: 99284; A9270

== ENCOUNTER 2024-10-08 12:23 | Inpatient (IN) | payer OTHER ==
[~2024-10-08] VITALS: Ht 154.9 cm; Wt 51.3 kg
--- OUTSIDE RECORDS SUMMARY | 2024-10-08 12:30 | XMS ---
PreManage Notification: HERMES RING Security Piano Case Maker Events No recent Security Events currently on file CRITERIA MET - 6 ED Visits in 6 Months - [facility] - 2 Visits in 30 Days CARE PROVIDERS KALLIE EARLY [facility] 10/03/2024-Current PHONE: Unknown CELSA MINAYA Nurse Practitioner: Family Current PHONE: [phone] VANIA RODRIGUES Physician Marketing Systems Analyst Gracy COLLINS PHONE: [phone] MARK ANDREW Nurse Practitioner: Adult [facility] PHONE: [phone] Josy has no Care Guidelines for this patient. Won VISIT COUNT (12 MO.) [address] [facility] TOTAL 15 NOTE: Visits indicate total known visits. ED/UCC VISIT TRACKING (12 MO.) 10/08/2024 12:24 [facility] [place] TYPE: Emergency COMPLAINT: - VOMITING 10/03/2024 14:01 [facility] [place] TYPE: Emergency COMPLAINT: - ABDOMINAL PAIN DIAGNOSES: - Nausea with vomiting, unspecified - Old myocardial infarction - Unspecified abdominal pain 10/02/2024 19:26 [facility] [place] TYPE: Emergency COMPLAINT: - HARD TO BREATHE DIAGNOSES: - Chronic obstructive pulmonary disease, unspecified - Heart failure, unspecified - Shortness of breath 09/23/2024 08:02 [facility] [place] TYPE: Emergency COMPLAINT: - SOB DIAGNOSES: - Chronic obstructive pulmonary disease, unspecified - Dyspnea, unspecified - Heart failure, unspecified - manager search (current) use of anticoagulants - Other transportation museum helper (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 09/19/2024 17:06 [facility] [place] TYPE: Emergency COMPLAINT: - WEAKNESS DIAGNOSES: - Chronic obstructive pulmonary disease, unspecified - Heart failure, unspecified - Old myocardial infarction - Other transportation museum helper (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 - Shortness of breath 09/11/2024 21:05 [facility] [place] [facility] [place] TYPE: Emergency COMPLAINT: - WEAKNESS DIAGNOSES: - Chronic obstructive pulmonary disease, unspecified - Heart failure, unspecified - Nausea with vomiting, unspecified - Noninfective gastroenteritis and colitis, unspecified - Old myocardial infarction - Other transportation museum helper (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 07/06/2024 17:48 [facility] [place] [facility] [place] TYPE: Emergency COMPLAINT: - ARM PAIN DIAGNOSES: - Chronic obstructive pulmonary disease, unspecified - Contusion of right wrist, initial encounter - Heart failure, unspecified - Striking against or struck by other objects, initial encounter 03/20/2024 19:43 [facility] [place] [facility] [place] TYPE: Emergency COMPLAINT: - CHEST PAIN DIAGNOSES: - Chronic obstructive pulmonary disease, unspecified - Heart failure, unspecified - Old myocardial infarction - Other chest pain - Other halfway (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 02/18/2024 21:22 [facility] [place] TYPE: Emergency COMPLAINT: - SOB DIAGNOSES: - Chronic obstructive pulmonary disease, unspecified - Heart failure, unspecified - Old myocardial infarction - Other transportation museum helper (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 - Other pulmonary embolism without acute cor pulmonale - Shortness of breath 01/29/2024 22:42 [facility] [place] TYPE: Emergency COMPLAINT: - SOB 01/29/2024 10:35 [facility] [place] TYPE: Emergency [...] - Shortness of breath 01/18/2024 16:45 [facility] [place] TYPE: Emergency DIAGNOSES: - HEART [...] - Insomnia, unspecified - Insomnia, unspecified - manager search (current) use of anticoagulants - long-term (current) use of anticoagulants - Other specified postprocedural states - Other specified postprocedural states - Other stimulant abuse, uncomplicated - Other stimulant abuse, uncomplicated - Rheumatic disorders of both mitral and tricuspid valves - Rheumatic disorders of both mitral and tricuspid valves [email or web address]
[2024-10-08] MEDS ORDERED: NITROGLYCERIN 0.4 MG SUBL SL PRN (12:45)
[2024-10-08] MEDS ORDERED: ASPIRIN 81 MG CHEW PO ONE (12:45)
[2024-10-08 12:49] LABS: BASOPHILS 0.2 % (0.1-1.2); EOSINOPHILS 0.3 % (0.7-5.8); LYMPHOCYTES 7.9 % (19.3-51.7); MCH 27.0 PG (25.6-32.2); MCHC 31.2 g/dL (32.2-35.5); MCV 86.6 fL (79.4-94.8); MONOCYTES 4.4 % (4.7-12.5); NEUTROPHILS 86.7 % (34.0-71.1); RBC 4.18 M/uL (3.93-5.22)
[2024-10-08 13:00] LABS: INR 1.26 (0.80-1.30); PROTIME 14.9 Sec (11.2-14.2)
[2024-10-08 13:15] LABS: ALT (SGPT) 16.0 U/L (14-59); AST (SGOT) 23.0 U/L (15-37); GLOMERULAR FILTRATION RATE,EST 54.0 mL/min (>60); PROTEIN, TOTAL 7.1 g/dL (6.4-8.2); UREA NITROGEN 16.0 mg/dL (7-18)
[2024-10-08] MEDS ORDERED: SODIUM CHLORIDE 0.9% 1,000 ML IV PRN (13:15)
[2024-10-08] MEDS ORDERED: ALBUTEROL/IPRATROPIUM 3 ML NEB INH ONE (13:30)
[2024-10-08] MEDS ORDERED: AZITHROMYCIN 500 MG in DEXTROSE 5% 250 ML IV ONE (15:45)
[2024-10-08] MEDS ORDERED: ACETAMINOPHEN 325 MG TAB PO PRN (16:30)
[2024-10-08] MEDS ORDERED: BENZONATATE 100 MG CAP PO PRN (17:15)
[2024-10-08] MEDS ORDERED: guaiFENesin 600 MG TABCR PO PRN (17:15)
[2024-10-08] MEDS ORDERED: ALBUTEROL SULFATE 0.083% 3 ML VIAL INH PRN (17:15)
--- NOTE | 2024-10-08 17:17 | EKG ---
[facility] [address] [place] [address] Signed Sinus tachycardia Right bundle branch block Abnormal ECG When compared with ECG of 02-OCT-2024 20:26, No significant change was found Confirmed by Judi Meeyrs MD () on 10/08/2024 5:17:17 PM Electronically Signed By: JUDI MEYERS MD 10/08/24 1717 PATIENT NAME: HERMES RING Electrocardiogram DATE OF : 66 PHYSICIAN: JUDI MEYERS MD REPORT #: [id number] REPORT IS CONFIDENTIAL AND NOT TO BE RELEASED WITHOUT AUTHORIZATION
[2024-10-08 17:22] VITALS: BP 118/78
--- NOTE | 2024-10-08 17:40 | NUR ---
PT REPORTS FEELING SHOB, TACHYPNEIC. RT CALLED FOR BREATHING TX. PT STARTING TO YELL OUT, SAYING "HELP ME. I CAN'T!" AND "I NEED MY GABAPENTIN." INFORMED PT THAT IT IS NOT ORDERED AND WILL HAVE TO TALK TO MD. LUNG SOUNDS CLEAR, 94% ON ROOM AIR. PT REPORTS FEELING ANXOUS, ATTEMPTED TO CALM PT WITH BREATHING TECHNIQUES. PT YELLS "THEY ALWAYS TELL ME THAT!" PT INCONSOLABLE, ATTEMPTED TO CALM PT WITH REASSURANCE.
--- NOTE | 2024-10-08 17:50 | NUR ---
PT YELLING OUT "I NEED TO GO TO THE BATHROOM." ASSISTED PT TO BATHROOM VIA STAND BY ASSIST. PT SAT ONTO TOILET AND HAD SMALL BM. PT THEN THREW SELF ONTO FLOOR. WHEN ATTEMPTING TO GET PT UP, SHE SAID "NO I WANT TO BE DOWN HERE. IT IS COLD." PT TOOK GOWN OFF. GOT PT OFF FROM FLOOR AND ASSISTED TO BED. PT THEN STARTED ROLLING IN BED AND YELLED "HELP ME." DR MEYERS NOTIFIED AND TO BEDSIDE. IV DC'D BY PT WHILE ROLLING IN BED.
[2024-10-08] MEDS ORDERED: LORazepam 0.5 MG TAB PO ONE (18:15)
[2024-10-08] MEDS ORDERED: LORazepam 2 MG/ML VIAL IV PRN (18:15)
--- NOTE | 2024-10-08 18:25 | NUR ---
PT DAUGHTER AT BEDSIDE, PT REPORTS "STARTING TO FEEL BETTER." SUPPLEMENTAL O2 PLACED, 2L NC PER DR MEYERS VERBAL ORDER
[2024-10-08] MEDS ORDERED: HYDROCODONE/ACETA 5/325 TAB PO PRN (18:30)
--- NOTE | 2024-10-08 18:55 | NUR ---
PT RESTING IN BED WITH DAUGHTER AT BEDSIDE. PT MORE CALM, PROVIDED WITH WARM BLANKET PER REQUEST. PT ALLOWED TELE TO BE PLACED BACK ON AND NEW IV STARTED. IV ABX COMPLETED. PT DENIES FURTHER NEEDS, CALL LIGHT IN REACH
--- NOTE | 2024-10-08 19:10 | NUR ---
RECEIVED REPORT. PT RESTING IN BED WITH EYES CLOSED. DAUGHTER IN ROOM. CALL LIGHT IN REACH
[2024-10-08] MEDS ORDERED: METOPROLOL TARTRATE 25 MG TAB PO SCH (21:00)
[2024-10-08] MEDS ORDERED: FUROSEMIDE 20 MG TAB PO SCH (21:00)
[2024-10-08 22:00] VITALS: BP 102/70
--- NOTE | 2024-10-08 22:10 | NUR ---
VITALS, ASSESSMENT, EVENING MEDS. PT RESTING IN BED WITH DRY COUGH. APOLOGETIC FOR EARLIER ANXIETY, REPORTS SHE IS FEELING BETTER NOW. DENIES NEED TO VOID CURRENTLY, HOPEFULLY LASIX WILL ENCOURAGE OUTPUT. GIVEN ORANGE JUICE PER REQUEST. NO OTHER NEEDS. CALL LIGHT IN REACH
--- NOTE | 2024-10-08 22:50 | NUR ---
ASSISTED PT TO BATHROOM SBA. VOIDED TO TOILET, MISSED HAT. NO NEEDS PRESENTLY, REPORTS MILD ABD PAIN THOUGH DECLINES PAIN MEDICATION. NO OTHER NEEDS, CALL LIGHT IN REACH AND BED ALARM ACTIVE
[2024-10-09] VITALS (54 sets, daily range): BP systolic 54–166; BP diastolic 18–116
--- NOTE | 2024-10-09 00:56 | NUR ---
PT IN BED WITH EYES CLOSED, RISE AND FALL OF CHEST OBSERVED, CALL LIGHT IN REACH
--- NOTE | 2024-10-09 02:04 | NUR ---
VITALS, I&OS. GIVEN ORANGE JUICE PER REQUEST. NO OTHER NEEDS, CALL LIGHT IN REACH
--- NOTE | 2024-10-09 03:51 | NUR ---
PT RESTING IN BED WITH EYES CLOSED, RISE AND FALL OF CHEST OBSERVED. CALL [facility] MICHELE
--- NOTE | 2024-10-09 04:25 | NUR ---
URINE SAMPLE COLLECTED AND SENT TO LAB.
[2024-10-09 04:32] LABS: BLOOD/HGB, URINE NEGATIVE (Negative); KETONE, URINE NEGATIVE (Negative); LEUK ESTERASE, URINE NEGATIVE (negative); NITRITE, URINE NEGATIVE (negative)
[2024-10-09 04:37] LABS: EPITHELIAL CELLS, URINE SQUAMOUS 2+ /lpf (0-1+)
[2024-10-09 04:38] LABS: BACTERIA, URINE 1+ /hpf (negative); CRYSTALS, URINE NONE SEEN (0-1+)
[2024-10-09 04:39] LABS: CASTS, URINE GRANULAR 3+ \\lpf; REFLEX CULTURE, URINE No (No)
[2024-10-09 04:47] LABS: AMPHETAMINES, URINE NEGATIVE (NEGATIVE); BARBITURATES, URINE NEGATIVE (NEGATIVE); BENZODIAZEPINE, URINE NEGATIVE (NEGATIVE); CANNABINOID, URINE NEGATIVE (NEGATIVE); COCAINE, URINE NEGATIVE (NEGATIVE); ECSTASY, URINE NEGATIVE (NEGATIVE); FENTANYL, URINE NEGATIVE (NEGATIVE); METHADONE, URINE NEGATIVE (NEGATIVE); OPIATES, URINE POSITIVE (NEGATIVE); OXYCODONE, URINE NEGATIVE (NEGATIVE); PHENCYCLIDINE, URINE NEGATIVE (NEGATIVE)
[2024-10-09 05:12] LABS: BASOPHILS 0.2 % (0.1-1.2); EOSINOPHILS 0.2 % (0.7-5.8); LYMPHOCYTES 8.4 % (19.3-51.7); MCH 27.2 PG (25.6-32.2); MCHC 30.4 g/dL (32.2-35.5); MCV 89.6 fL (79.4-94.8); MONOCYTES 4.4 % (4.7-12.5); NEUTROPHILS 86.4 % (34.0-71.1); RBC 4.15 M/uL (3.93-5.22)
--- NOTE | 2024-10-09 05:30 | NUR ---
PT ALERT IN BED, NO ACUTE DISTRESS. NO NEEDS PRESENTLY, CALL LIGHT IN REACH
[2024-10-09 05:31] LABS: ALT (SGPT) 47.0 U/L (14-59); GLOMERULAR FILTRATION RATE,EST 50.0 mL/min (>60); PHOSPHORUS, INORGANIC 3.7 mg/dL (2.5-4.9); PROTEIN, TOTAL 6.4 g/dL (6.4-8.2); UREA NITROGEN 33.0 mg/dL (7-18)
[2024-10-09 05:39] LABS: AST (SGOT) 79.0 U/L (15-37)
--- NOTE | 2024-10-09 07:34 | NUR ---
MORNING REPORT RECEIVED FROM ELIZABETH BEAVER. PT SITTING UP IN BED AWAKE AND ALERT ATTHIS TIME. PT DENIES ANY NEEDS AND HAS CALL LIGHT IN REACH.
[2024-10-09] MEDS ORDERED: LASIX20 MG PO (09:00)
[2024-10-09] MEDS ORDERED: ENOXAPARIN SODIUM 40 MG/0.4 ML SYR SUB-Q SCH (09:00)
[2024-10-09] MEDS ORDERED: AZITHROMYCIN 500 MG in DEXTROSE 5% 250 ML IV SCH (09:00)
[2024-10-09] MEDS ORDERED: MULTIVITAMINS1 EAC6 PO (09:01)
[2024-10-09] MEDS ORDERED: IRON325 M1 PO (09:02)
[2024-10-09] MEDS ORDERED: NEURONTIN100 MG PO (09:02)
[2024-10-09] MEDS ORDERED: COZAAR25 MG PO (09:02)
[2024-10-09] MEDS ORDERED: VITAMIN D350 MC3 PO (09:03)
[2024-10-09] MEDS ORDERED: VITAMIN C500 M1 PO (09:03)
[2024-10-09] MEDS ORDERED: VENTOLIN HFA18 GM INH (09:32)
[2024-10-09] MEDS ORDERED: BENZONATATE100 MG PO (09:33)
--- NOTE | 2024-10-09 09:33 | NUR ---
MED REC COMPLETE
--- NOTE | 2024-10-09 09:35 | NUR ---
UR CLINICAL REVIEW: SAPNA, MEETS INPT FOR PNEUMONIA HEARTRATE 124, RESP 22, BLOOD CULTURES PENDING, IV ANTIBIOTICS BASIC DMAP ([place] MEDICAID) INPT 10/08/2024 @ 1632 ORDER MATCHES REG NO AUTH REQUIRED FOR MEDICAID. PLAN TO DC TO HOME WHEN MEDICALLY STABLE. 10/14/2024
--- NOTE | 2024-10-09 10:09 | NUR ---
PT REPORTED NAUSEA, PT WAS GIVEN PRN ZOFRAN (SEE EMAR). THIS RN THEN LEFT PT ROOM TO CHECK ON OTHER PT. PT STARTED YELLING AND HAVING AN ANXIETY ATTACK. PT VITALS STABLE AND PT GIVEN PRN ATIVAN (SEE EMAR). PT IS NO LONGER FEELING ANXIETY AND IS LAYING IN BED CALM AT THIS TIME WITH EYES CLOSED CHEST RISE EQUAL BILAT. PT HAS CALL LIGHT IN REACH.
--- NOTE | 2024-10-09 10:26 | NUR ---
SBA TO THE BATHROOM WITH THIS ELECTROPLATING SALES REPRESENTATIVE. THE PATIENT WAS RETURNING TO BED THEY BEGAN TO REPORT CHEST PAIN AND DIFFICULTY BREATHING. PATIENT GOT IN BED AND BEGAN TO WRITHE BACK AND FORTH. KARIE BARTON, CHARGE NURSE TRIPP, AND ELIZABETH SR ENTERED THE ROOM. ELIZABETH SR ADMINSTERED MEDICATION. PATIENT'S VITALS TAKEN AND DOCUMENTED. TELE LEADS WERE REATTACHED. PATIENT IS CURRENTLY SLEEPING WITH THE BED ALARM SET.
--- NOTE | 2024-10-09 10:42 | NUR ---
VISITED DURING SPIRITUAL CARE ROUNDS. PT APPEARED TO BE SLEEPING. DID NOT DISTURB. PROVIDED PRAYER.
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
--- NOTE | 2024-10-09 11:12 | NUR ---
PT LAYING IN BED WITH THIS RN IN ROOM PT STARTED HAVING ANXIETY AT THIS TIME AND STATED " THEY NEEDED TO HAVE A BM". THIS RN AND LIVESTOCK INSPECTOR STAFF TRIED TO CALM THE PT AND MOVE THEM TO THE BSC, PT WAS NOT ABLE TO WAIT AND HAD A MEDIUM SOFT BM IN BRIEF. (1115) PT LAID IN BED AND WAS CLEANED W ROSALBA CARE PROVIDED. JUANITA ALMAGUER RN ENTERED ROOM AND ASSISTED WITH CLEANING PT. (1117) PT STARTED TO BECOME TACHYPNIC UNRESPONSIVE AND FOAMING FROM MOUTH AND RAPID RESPONSE WAS CALLED OVER HEAD. (1118) CODE BLUE WAS CALLED AND COMPRESSIONS STARTED. (1123) PT NEGATIVE FOR PULSE AND 1MG OF EPI WAS GIVEN IV. (1125) PULSE CHECK WAS DONE AND SHOWED 133BPM ORGANIZED RHYTHM, PT OPENED EYES AT THIS TIME AND BECAME VERBAL. (1127) VS TAKEN BP 121/95 (101) P-50 O2 SAT-78 ON 15L NON REBREATHER MASK. (1128) 0.1MG FLUMAZENIL GIVEN TO PT. (1134) 20G IV ATTEMP RFA FAILED, 18G RAC IV ATTEMPT FAILED, CASSANDRA 20G ATTEMPT FAILED, 22G CASSANDRA ATTEMPT SUCCESSFUL BLOOD DRAW, 18G LAC IV PLACED AND LAB DRAW COMPLETED WITH SUCCESSFUL IV PLACEMENT. (1145) VS BP 91/69 (75) HR 97. (1154) BG FINGER STICK RH 103BG. (1155) O2 SAT 91% 15L NON REBREATHER MASK, HR 98. (1205) VS BP 112/78 (86) HR 98, O2 SAT 85 15L NON REBREATHER. (1210) CODE COMPLATED AND PT TRANSFERED TO CCU FOR FURTHER CARE.
--- NOTE | 2024-10-09 11:40 | NUR ---
RESPONDED TO RAPID RESPONSE AND CODE BLUE ALERTS. PROVIDED SUPPORTIVE PRESENCE, PRAYER.
[2024-10-09 11:50] LABS: BASOPHILS 0.3 % (0.1-1.2); EOSINOPHILS 0.6 % (0.7-5.8); LYMPHOCYTES 19.4 % (19.3-51.7); MCH 27.1 PG (25.6-32.2); MCHC 29.8 g/dL (32.2-35.5); MCV 90.9 fL (79.4-94.8); MONOCYTES 5.6 % (4.7-12.5); NEUTROPHILS 73.2 % (34.0-71.1); RBC 4.61 M/uL (3.93-5.22)
[2024-10-09] MEDS ORDERED: PHARMACY RENAL DOSE ADJUSTMENT 1 DOSE MISC PO SCH (12:00)
--- NOTE | 2024-10-09 12:11 | NUR ---
RECEIVED PATIENT FROM M/S AFTER FELICITA BLUE CALLED. MARÍA Vera CRNA PLACED ART LINE. IN LT WRIST AT 1220. PT CLEAMED UP PRUE WICK INPLACE AND WARM BLANKETS GIVEN. RT GIVEN BLOOD FOR ABG ALSO AFTER ART LINE PLACED. PT IS AWAKE AND ASKING FOR SOMETHING TO DRINK AND SAYING SHE DOES NOT WANT TO . PER DR CABRERA PATIENT FAMILY WAS NOTIFIED, BUT SO FAR NO FAMILY HAS PRESENTED THEMSELVES AT THIS TIME. 1245 NON REBREATHER REMOVED AND NC IN PLACE AT 3L'S WITH ETCO OF 18. 1300 PT IS SETTLED INTO BED AND CALL LIGHT IN REACH AND IS WATCHING TV AT THIS TIME. PT HAS BEEN AWAKE THE WHOLE TIME IN CCU. PT STILL REMAINS ATTACHED TO CODE PADS AND CART IS AT THE BEDSIDE.
[2024-10-09 12:24] LABS: ALT (SGPT) 55.0 U/L (14-59); AST (SGOT) 119.0 U/L (15-37); GLOMERULAR FILTRATION RATE,EST 44.0 mL/min (>60); PROTEIN, TOTAL 7.1 g/dL (6.4-8.2); UREA NITROGEN 23.0 mg/dL (7-18)
[2024-10-09 12:29] LABS: BASE EXCESS, BLOOD GAS -15.5 mmol/L (-2-2); HCO3, BLOOD GAS 9.0 mmol/L (22-26); PCO2, BLOOD GAS 18.4 mmHg (35-45); PH, BLOOD GAS 7.29 (7.35-7.45); PO2, BLOOD GAS 197 mmHg (80-100); TOTAL CO2, BLOOD GAS 9.6
[2024-10-09 12:30] LABS: O2 SATURATION, BLOOD GAS > 100.0 % (95.0-100.0); OXYGEN RECEIVED, BLOOD GAS 100%
--- NOTE | 2024-10-09 12:30 | NUR ---
NOtified by staff a siri orellana was called on this pt and she was moved to room 128 in ICU.
--- NOTE | 2024-10-09 13:45 | NUR ---
PT HAD SEIZURE LIKE ACTIVITY PT ARCHING HER BACK, EYE ROOL TO THE BACK OF HER HEAD LOOKING UPWARDS TO THE HEAD OF THE BED. PT NONE VERBAL DURING THIS. DR MEYERS IN THE UNIT AT THIS TIME. THEN PT WAS NOTED TO NOT BE BREATHING AND STAFF ASSISTED PT WITH BREATHING AND PT LOST PULSE AND CODE BLUE CALLED AT 13:52 CPR STARTED.
--- NOTE | 2024-10-09 13:48 | NUR ---
PT HAD AGONAL BREATHING BUT HAD PULSE. RESCUE BREATHING STARTED AT THIS TIME. 1352: PT HAD NO PULSE AND CPR STARTED AND CODE BLUE CALLED. 1353: MD AT BEDSIDE. 1356: FIRST DOSE OF EPI GIVEN 1357: PT IN PEA 1358: PT INTUBATED AT THIS TIME. TUBE SIZE 7.[address] CONKLIN 1359: PULSE CHECK DONE. PT REMAINED IN PEA. 2ND DOSE OF EPI GIVEN AT THIS TIME. 1401: PT HAD PULSE. CPR STOPPED 1405: FEMORAL CENTRAL LINE STARTED AT THIS TIME BY DR. CONKLIN 1412: PT HYPOTENSIVE. BP: 54/24 (32) HR:120 ETCO2:13 RESP: 18 SATS: 68%. 1413: NOREPI AND DOBUTAMINE STARTED AT THIS TIME. 1420: CENTRAL LINE COMPLETED. NOREPI INCREASED TO 10MCG/MIN AT THIS TIME DUE TO HYPOTENSION. 1425: CHEST X-RAY COMPLETED FOR TUBE PLACEMENT AT THIS TIME. RT AND MD REMAIN AT BEDSIDE.
[2024-10-09] MEDS ORDERED: NOREPINEPHRINE BITARTRATE 250 ML IV ONE (13:54)
--- NOTE | 2024-10-09 13:54 | NUR ---
CALLED DAUGHTER, DANO, NOTIFIED HER PATIENT HAS STOPPED BREATHING AND IS GOING TO BE INTUBATED AND TRANSFERRED. STATES SHE IS GETTING IN THE CAR AND COMING UP TO FACILITY NOW. DR. MEYERS UPDATED.
[2024-10-09] MEDS ORDERED: MIDAZOLAM HCL 2 MG/2 ML VIAL ONE (14:23)
[2024-10-09] MEDS ORDERED: MIDAZOLAM HCL 100 MG in DEXTROSE 5% 80 ML IV SCH (14:30)
[2024-10-09 14:44] LABS: BASOPHILS 0.2 % (0.1-1.2); EOSINOPHILS 0.1 % (0.7-5.8); LYMPHOCYTES 9.8 % (19.3-51.7); MCH 27.0 PG (25.6-32.2); MCHC 29.1 g/dL (32.2-35.5); MCV 92.8 fL (79.4-94.8); MONOCYTES 4.6 % (4.7-12.5); NEUTROPHILS 83.3 % (34.0-71.1); RBC 4.04 M/uL (3.93-5.22)
[2024-10-09 14:56] LABS: BASE EXCESS, BLOOD GAS -19.7 mmol/L (-2-2); HCO3, BLOOD GAS 7.4 mmol/L (22-26); O2 SATURATION, BLOOD GAS > 100.0 % (95.0-100.0); PCO2, BLOOD GAS 20.4 mmHg (35-45); PH, BLOOD GAS 7.16 (7.35-7.45); PO2, BLOOD GAS 467 mmHg (80-100); TOTAL CO2, BLOOD GAS 8.1
[2024-10-09 14:57] LABS: OXYGEN RECEIVED, BLOOD GAS 100
[2024-10-09 14:58] LABS: ALT (SGPT) 102.0 U/L (14-59); AST (SGOT) 215.0 U/L (15-37); GLOMERULAR FILTRATION RATE,EST 37.0 mL/min (>60); PROTEIN, TOTAL 5.9 g/dL (6.4-8.2); UREA NITROGEN 23.0 mg/dL (7-18)
[2024-10-09] MEDS ORDERED: fentaNYL citrate 100 MCG/2 ML VIAL ONE (15:18)
--- NOTE | 2024-10-09 15:18 | NUR ---
RESPONDED TO CODE BLUE. PROVIDED SUPPORTIVE PRESENCE, PRAYER. WHEN DAUGTHER AND FAMILY ARRIVED, DIRECTED TO CCU WAITING ROOM TO TALK WITH DOCTOR. DAUGHTER ANGRY AT SITUATION BUT DOES NOT APPEAR TO BE ANGRY WITH MEDICAL STAFF. MEDICAL SERVICES ASSISTANT PRESENCE GENERALLY RESULTS IN ANGER RESPONSE SO GAVE SPACE. PROVIDED PRAYER.
[2024-10-09] MEDS ORDERED: fentaNYL citrate 100 MCG/2 ML VIAL IV ONE (15:30)
[2024-10-09] MEDS ORDERED: LORazepam 2 MG/ML VIAL IV PRN (15:30)
--- NOTE | 2024-10-09 15:43 | NUR ---
HOURLY VITAL SIGNS DOCUMENTED IN THE CHART.
[2024-10-09] MEDS ORDERED: LIDOCAINE 2% VISCOUS 6 ML SYR TOP ONE (15:45)
--- NOTE | 2024-10-09 15:45 | NUR ---
PT AGGITATED AND BUCKING THE TUBE ORDER RECIEVED FOR FENTANYL IV AT THIS TIME. GAVE 12.5MCG AT THIS TIME.
--- NOTE | 2024-10-09 15:50 | NUR ---
GAVE AND ADDITIONAL DOSE OF FENTANYL 12.5MCG IV AT THIS TIME FOR AGGITATION.
--- NOTE | 2024-10-09 16:02 | NUR ---
FELIPE CATHETER PLACED USING STERILE TECHNIQUE AT THIS TIME.
--- NOTE | 2024-10-09 16:06 | NUR ---
2MG ATIVAN GIVEN IV AT THIS TIME FOR AGGITATION. ATTEMPTING TO CALM PATIENT WITH TOUCH.
--- NOTE | 2024-10-09 16:09 | NUR ---
DAUGHTER EXPRESSED CONCERN REGARDING HOUSEKEY SHE HAD LEFT WITH PT IN ED. DAUGHTER DID NOT INITIALLY LOCATE BARRIOS AND INDICATED INTENT TO CHECK WITH ED. IN HER ABSCENSE, KARIE DAILEY LOCATED BARRIOS IN PT'S BACKPACK. NURSING STAFF UNABLE TO CONTACT ED BY PHONE. PER DIEM PHYSICAL THERAPIST NOTIFIED DAUGHTER THAT BARRIOS HAD BEEN LOCATED. DAUGHTER RETURNED TO PT ROOM IN CCU AND TOOK POSSESSION OF BARRIOS.
[2024-10-09] MEDS ORDERED: NOREPINEPHRINE BITARTRATE 250 ML IV SCH (17:15)
--- NOTE | 2024-10-09 17:51 | NUR ---
MD IN ROOM TO TALK TO PATIENTS DAUGHTER AT THIS TIME. PT DAUGHTER HAS CONCERNS ABOUT PLAN OF CARE AND PATIENT BEING TRANSFERED.
--- NOTE | 2024-10-09 18:02 | NUR ---
NOREPI TITRATED TO 15MCG/MIN AT THIS TIME.
--- NOTE | 2024-10-09 18:42 | NUR ---
TITRATED DOSE OF NOREPI DOWN TO 10MCG/MIN AT THIS TIME.
--- NOTE | 2024-10-09 21:06 | NUR ---
BED AVAILABLE CONFIRMED AT [facility] AT 2028, [facility] CALL FOR TRANSPORT, DISPATCH SAID SHE WOULD CONTACT [facility] AND COULD POSSIBLE BE ABLE TO TRANSPORT BY 2051 DISPATCH TO CALL BACK TO CONFIRM THIS. NO CALL BACK FROM DISPATCH FOR [facility] OF 2101, THIS RN CALLED FOR UPDATE, NOW WEATHER ALERT IN, PLACE, DISPATCH SAID HE WOULD CALL WHEN AVAILABLE.
--- NOTE | 2024-10-09 23:31 | EKG ---
[facility] [address] [facility] [place] [address] Signed Normal sinus rhythm Right bundle branch block Lateral infarct , age undetermined Abnormal ECG When compared with ECG of 08-OCT-2024 12:25, No significant change was found Confirmed by Judi Meyers MD () on 10/09/2024 11:31:18 PM Electronically Signed By: JUDI MEYERS MD 10/09/24 [facility] PATIENT NAME: HERMES RING Electrocardiogram DATE OF : 66 PHYSICIAN: JUDI MEYERS MD REPORT #: [id number] REPORT IS CONFIDENTIAL AND NOT TO BE RELEASED WITHOUT AUTHORIZATION
--- NOTE | 2024-10-09 23:46 | NUR ---
Update: Pt picked up by [facility] for transport. Time of departure approx 2347. Report called to ELIZABETH Byrnes @ [facility]. This RN updated pt's daughters (Tatum & Caty) Last set of vitals: HR 96, RR 16, BP 107/78, Spo2 97% on 80% FiO2
== END 2024-10-09 23:47 | disposition short-term general hospital (02) | DRG 871 ==
LOC: ED 12:23 → MS 16:32 → CCU 10-09 12:15
PROVIDERS: Emergency Medicine; ADMIT Family Medicine; ATTEND Family Medicine
PROC: 3E03329 Introduction of Other Anti-infective into Peripheral Vein, Percutaneous Approach (ICD-10-PCS; 2024-10-08)
PROC: 5A1935Z Respiratory Ventilation, Less than 24 Consecutive Hours (ICD-10-PCS; principal; 2024-10-09)
PROC: 06HY33Z Insertion of Infusion Device into Lower Vein, Percutaneous Approach (ICD-10-PCS; 2024-10-09)
PROC: 0BH17EZ Insertion of Endotracheal Airway into Trachea, Via Natural or Artificial Opening (ICD-10-PCS; 2024-10-09)
PROC: 5A12012 Performance of Cardiac Output, Single, Manual (ICD-10-PCS; 2024-10-09)
PROC: 4A133R1 Monitoring of Arterial Saturation, Peripheral, Percutaneous Approach (ICD-10-PCS; 2024-10-09)
PROC: 03HY32Z Insertion of Monitoring Device into Upper Artery, Percutaneous Approach (ICD-10-PCS; 2024-10-09)
PROC: 4A133B1 Monitoring of Arterial Pressure, Peripheral, Percutaneous Approach (ICD-10-PCS; 2024-10-09)
PROC: 4A133J1 Monitoring of Arterial Pulse, Peripheral, Percutaneous Approach (ICD-10-PCS; 2024-10-09)
PROC: 3E043XZ Introduction of Vasopressor into Central Vein, Percutaneous Approach (ICD-10-PCS; 2024-10-09)
PROC: 0T9B70Z Drainage of Bladder with Drainage Device, Via Natural or Artificial Opening (ICD-10-PCS; 2024-10-09)
DX: A41.9 Sepsis, unspecified organism (principal); I46.9 Cardiac arrest, cause unspecified; J18.9 Pneumonia, unspecified organism; R65.21 Severe sepsis with septic shock; R57.0 Cardiogenic shock; J96.01 Acute respiratory failure with hypoxia; I50.22 Chronic systolic (congestive) heart failure; M96.A1 Fracture of sternum associated with chest compression and cardiopulmonary resuscitation; J44.0 Chronic obstructive pulmonary disease with (acute) lower respiratory infection; R56.9 Unspecified convulsions; R79.1 Abnormal coagulation profile; R73.9 Hyperglycemia, unspecified; F19.11 Other psychoactive substance abuse, in remission; Z86.74 Personal history of sudden cardiac arrest; I25.2 Old myocardial infarction; Z77.110 Contact with and (suspected) exposure to air pollution; Z85.41 Personal history of malignant neoplasm of cervix uteri
CPT/HCPCS: 31500; 36415; 36556; 36592; 36600; 36620; 51701; 71045; 71260; 80053; 80307; 81001; 82803; 83036; 83605; 83690; 83735; 83880; 84100; 84484; 85025; 85379; 85610; 87040; 87502; 93005; 93010; 94002; 94640; 94668; 97166; A9270; J0171; J0456; J0696; J1650; J2060; J2250; J2405; J2704; J3010; J7030; J7060; Q9967; U0002

== ENCOUNTER 2024-10-25 13:15 | Emergency (ER) | payer OTHER ==
[~2024-10-25] VITALS: Ht 154.9 cm; Wt 51.3 kg
[~2024-10-25 13:15] MED LIST changes: +IRON325 M1 PO; +MULTIVITAMINS1 EAC6 PO; +VITAMIN C500 M1 PO; +VITAMIN D350 MC3 PO
--- OUTSIDE RECORDS SUMMARY | 2024-10-25 13:18 | XMS ---
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 10/03/2024-Current PHONE: Unknown CELSA MINAYA Nurse Practitioner: Family Current PHONE: [phone] VANIA RODRIGUES Physician Agricultural Education Teacher Gracy COLLINS PHONE: [phone] MARK ANDREW Nurse Practitioner: Adult Health [facility] PHONE: [phone] Josy has no Care Guidelines for this patient. Won VISIT COUNT (12 MO.) 15 KARISSA Iyer [address] [place] TOTAL 17 NOTE: Visits indicate total known visits. ED/UCC VISIT TRACKING (12 MO.) 10/25/2024 13:16 [facility] [place] TYPE: Emergency COMPLAINT: - CHEST PAIN 10/23/2024 22:05 [facility] KAMLESH CHAN [place] TYPE: Emergency DIAGNOSES: - Chest pain, unspecified - Heart failure, unspecified - Chest Pain 10/08/2024 12:24 [facility] [place] TYPE: Emergency [...] - Shortness of breath 09/23/2024 08:02 [place] Ign[facility] [place] TYPE: Emergency COMPLAINT: - SOB DIAGNOSES: - Chronic obstructive pulmonary disease, unspecified - Dyspnea, unspecified - Heart failure, unspecified - residential (current) use of anticoagulants - Other usp (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 09/19/2024 17:06 [facility] [place] TYPE: Emergency COMPLAINT: - WEAKNESS DIAGNOSES: - Chronic obstructive pulmonary disease, unspecified - Heart failure, unspecified - Old myocardial infarction - Other usp (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 - Shortness of breath 09/11/2024 21:05 [facility] TYPE: Emergency COMPLAINT: - WEAKNESS DIAGNOSES: - Chronic obstructive pulmonary disease, unspecified - Heart failure, unspecified - Nausea with vomiting, unspecified - Noninfective gastroenteritis and colitis, unspecified - Old myocardial infarction - Other usp (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 07/06/2024 17:48 KARISSA [place] [...] pulmonale - Shortness of breath 01/29/2024 22:42 [facility] [place] TYPE: Emergency COMPLAINT: - SOB 01/29/2024 10:35 [facility] [place] TYPE: Emergency COMPLAINT: - ABDOMINAL PAIN DIAGNOSES: - Bifascicular block - Chronic obstructive pulmonary disease, unspecified - Epigastric pain - Heart failure, unspecified - Localized swelling, mass and lump, head - Other rat exterminator (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 - Upper abdominal pain, unspecified 2024 05:40 [facility] [place] TYPE: Emergency COMPLAINT: - SHORTNESS OF BREATH DIAGNOSES: - Chronic obstructive pulmonary disease with (acute) lower respiratory infection - Heart failure, unspecified - Other rat exterminator (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 - Pneumonia, unspecified organism - Shortness of breath 01/18/2024 16:45 [facility] [place] TYPE: Emergency DIAGNOSES: - HEART PROBLEMS 12/07/2023 14:33 KARISSA [place] TYPE: Emergency COMPLAINT: - TROUBLE BREATHING 11/21/2023 22:08 KARIS[facility] [place] TYPE: Emergency COMPLAINT: - ABDOMINAL PAIN DIAGNOSES: - Chronic obstructive pulmonary disease, unspecified - Heart failure, unspecified - Nicotine dependence, unspecified, uncomplicated - Unspecified abdominal pain INPATIENT VISIT TRACKING (12 MO.) 10/10/2024 02:34 [facility] [place] TYPE: Medical Surgical DIAGNOSES: - Acute on chronic systolic (congestive) heart failure - Heart failure, unspecified - PEA arrest, concern for multifocal pneumonia - sepsis pneumonia 10/08/2024 16:32 [facility] [place] TYPE: Critical Care COMPLAINT: - PNEUMONIA, SEPSIS DIAGNOSES: - Abnormal coagulation profile - Abnormal coagulation profile - Acute respiratory failure with hypoxia - Acute respiratory failure with hypoxia - Cardiac arrest, cause unspecified - Cardiac arrest, cause unspecified - Cardiogenic shock - Cardiogenic shock - Chronic obstructive pulmonary disease with (acute) lower respiratory infection - Chronic obstructive pulmonary disease with (acute) lower respiratory infection - Chronic systolic (congestive) heart failure - Chronic systolic (congestive) heart failure - Contact with and (suspected) exposure to air pollution - Contact with and (suspected) exposure to air pollution - Fracture of sternum associated with chest compression and cardiopulmonary resuscitation - Fracture of sternum associated with chest compression and cardiopulmonary resuscitation - Hyperglycemia, unspecified - Hyperglycemia, unspecified - Old myocardial infarction - Old myocardial infarction - Other psychoactive substance abuse, in remission - Other psychoactive substance abuse, in remission - Personal history of malignant neoplasm of cervix uteri - Personal history of malignant neoplasm of cervix uteri - Personal history of sudden cardiac arrest - Personal history of sudden cardiac arrest - Pneumonia, unspecified organism - Pneumonia, unspecified organism - Sepsis, unspecified organism - Severe sepsis with septic shock - Severe sepsis with septic shock - Unspecified convulsions - Unspecified convulsions 01/31/2024 15:39 [facility] [place] TYPE: Medical Surgical DIAGNOSES: - [...] - Insomnia, unspecified - Insomnia, unspecified - residential (current) use of anticoagulants - oysterman (current) use of anticoagulants - Other specified postprocedural states - Other specified postprocedural states - Other stimulant abuse, uncomplicated - Other stimulant abuse, uncomplicated - Rheumatic disorders of both mitral and tricuspid valves - Rheumatic disorders of both mitral and tricuspid valves [email or web address]
[2024-10-25] MEDS ORDERED: ASPIRIN81 MG PO (13:30)
[2024-10-25] MEDS ORDERED: SPIRONOLACTONE25 MG PO (13:30)
[2024-10-25] MEDS ORDERED: TOPROL XL50 MG PO (13:30)
[2024-10-25 14:07] LABS: BASOPHILS 0.6 % (0.1-1.2); EOSINOPHILS 1.8 % (0.7-5.8); LYMPHOCYTES 20.8 % (19.3-51.7); MCH 26.8 PG (25.6-32.2); MCHC 31.2 g/dL (32.2-35.5); MCV 85.8 fL (79.4-94.8); MONOCYTES 5.7 % (4.7-12.5); NEUTROPHILS 70.6 % (34.0-71.1); RBC 3.88 M/uL (3.93-5.22)
[2024-10-25 14:26] LABS: ALT (SGPT) 21.0 U/L (14-59); AST (SGOT) 22.0 U/L (15-37); GLOMERULAR FILTRATION RATE,EST 68.0 mL/min (>60); PROTEIN, TOTAL 7.1 g/dL (6.4-8.2); UREA NITROGEN 20.0 mg/dL (7-18)
[2024-10-25 15:29] VITALS: BP 101/86
--- NOTE | 2024-10-25 22:49 | EKG ---
[facility] [address] [facility] [place], [place] [address] Signed Normal sinus rhythm Left atrial enlargement Right bundle branch block Septal infarct , age undetermined Abnormal ECG When compared with ECG of 09-OCT-2024 11:40, Significant changes have occurred Confirmed by Judi Meyers MD () on 10/25/2024 10:49:01 PM Electronically Signed By: JUDI MEYERS MD 10/25/24 [id number] PATIENT NAME: HERMES RING Electrocardiogram DATE OF : 66 PHYSICIAN: JUDI MEYERS MD REPORT #: [id number] REPORT IS CONFIDENTIAL AND NOT TO BE RELEASED WITHOUT AUTHORIZATION
== END 2024-10-25 15:27 | disposition home or self-care (01) ==
LOC: ED 13:15
PROVIDERS: Emergency Medicine
DX: R60.0 Localized edema (principal); I50.9 Heart failure, unspecified; I25.2 Old myocardial infarction; J44.9 Chronic obstructive pulmonary disease, unspecified; Z86.74 Personal history of sudden cardiac arrest; Z79.82 Long term (current) use of aspirin; Z79.899 Other long term (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
CPT/HCPCS: 36415; 71045; 80053; 83880; 84484; 85025; 93005; 93010; 99284-25

== ENCOUNTER 2024-11-03 09:28 | Emergency (ER) | payer OTHER ==
[~2024-11-03] VITALS: Ht 154.9 cm; Wt 57.5 kg
[~2024-11-03 09:28] MED LIST changes: +ASPIRIN81 MG PO; +SPIRONOLACTONE25 MG PO; +TOPROL XL50 MG PO
--- OUTSIDE RECORDS SUMMARY | 2024-11-03 09:35 | XMS ---
PreManage Notification: HERMES RING Security Licensed Pharmacist Events No recent Security Events currently on file CRITERIA MET - 6 ED Visits in 6 Months - [facility] - 2 Visits in 30 Days CARE PROVIDERS KALLIE EARLY [facility] 10/03/2024-Current PHONE: Unknown CELSA MINAYA Nurse Practitioner: Family Current PHONE: [phone] VANIA RODRIGUES Physician Senior Tax Specialist Gracy COLLINS PHONE: [phone] MARK ANDREW Nurse Practitioner: Adult Health [facility] PHONE: [phone] Josy has no Care Guidelines for this patient. Won VISIT COUNT (12 MO.) 17 KARISSA Iyer [address] [place] TOTAL 19 NOTE: Visits indicate total known visits. ED/UCC VISIT TRACKING (12 MO.) 11/03/2024 09:28 [facility] [place] TYPE: Emergency COMPLAINT: - ALLERGIC REACTION 10/30/2024 09:06 [facility] [place] TYPE: Emergency COMPLAINT: - CHEST PAIN DIAGNOSES: - Chest pain, unspecified - prison (current) use of aspirin - Other [place]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 10/25/2024 13:16 [facility] [place] TYPE: Emergency COMPLAINT: - CHEST PAIN DIAGNOSES: - Chronic obstructive pulmonary disease, unspecified - Heart failure, unspecified - Localized edema - termination clerk (current) use of aspirin - Old myocardial infarction - Other [place] [facility] (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 - Personal history of sudden cardiac arrest 10/23/2024 22:05 [facility] KAMLESH CHAN [place] TYPE: Emergency DIAGNOSES: - Chest pain, unspecified - Heart failure, unspecified - Chest Pain 10/08/2024 12:24 [facility] [place] TYPE: Emergency COMPLAINT: - VOMITING 10/03/2024 14:01 [facility] [place] TYPE: Emergency COMPLAINT: - ABDOMINAL PAIN DIAGNOSES: - Nausea with vomiting, unspecified - Old myocardial infarction - Unspecified abdominal pain 10/02/2024 19:26 [facility] [place] TYPE: Emergency COMPLAINT: - HARD TO BREATHE DIAGNOSES: - Chronic obstructive pulmonary disease, unspecified - Heart failure, unspecified - Shortness of breath 09/23/2024 08:02 [facility] [place] TYPE: Emergency COMPLAINT: - SOB DIAGNOSES: - Chronic obstructive pulmonary disease, unspecified - Dyspnea, unspecified - Heart failure, unspecified - prison (current) use of anticoagulants - Other manager long term care (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 09/19/2024 17:06 [facility] [place] TYPE: Emergency COMPLAINT: - WEAKNESS DIAGNOSES: - Chronic obstructive pulmonary disease, unspecified - Heart failure, unspecified - Old myocardial infarction - Other [place] [facility]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 - Shortness of breath 09/11/2024 21:05 [facility] [place] TYPE: Emergency COMPLAINT: - WEAKNESS DIAGNOSES: - Chronic obstructive pulmonary disease, unspecified - Heart failure, unspecified - Nausea with vomiting, unspecified - Noninfective gastroenteritis and colitis, unspecified - Old myocardial infarction - Other [place] [facility] (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 07/06/2024 17:48 KARISSA [...] infarction - Other chest pain - Other [place] (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 02/18/2024 21:22 [facility] [place] TYPE: Emergency COMPLAINT: - SOB DIAGNOSES: - Chronic obstructive pulmonary disease, unspecified - Heart failure, unspecified - Old myocardial infarction - Other [place] [facility] (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 - Other pulmonary embolism without acute cor pulmonale - Shortness of breath 01/29/2024 22:42 [facility] [place] TYPE: Emergency COMPLAINT: - SOB 01/29/2024 10:35 [facility] [place] TYPE: Emergency COMPLAINT: - ABDOMINAL PAIN DIAGNOSES: - Bifascicular block - Chronic obstructive pulmonary disease, unspecified - Epigastric pain - Heart failure, unspecified - Localized swelling, mass and lump, head - Other manager long term care (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 - Upper abdominal pain, unspecified 2024 05:40 [facility] [place] TYPE: Emergency COMPLAINT: - SHORTNESS OF BREATH DIAGNOSES: - Chronic obstructive pulmonary disease with (acute) lower respiratory infection - Heart failure, unspecified - Other manager long term care (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 - Pneumonia, unspecified organism - Shortness of breath 01/18/2024 16:45 [facility] [place] TYPE: Emergency DIAGNOSES: - HEART PROBLEMS 12/07/2023 14:33 KARISSA [place] TYPE: Emergency COMPLAINT: - TROUBLE BREATHING 11/21/2023 22:08 [facility] [place] TYPE: Emergency COMPLAINT: - ABDOMINAL PAIN DIAGNOSES: - Chronic obstructive pulmonary disease, unspecified - Heart failure, unspecified - Nicotine dependence, unspecified, uncomplicated - Unspecified abdominal pain INPATIENT VISIT TRACKING (12 MO.) 10/10/2024 02:34 [facility] [place] TYPE: Medical Surgical DIAGNOSES: [...] Unspecified convulsions - Unspecified convulsions 01/31/2024 15:39 [facility] [place] TYPE: Medical [...] - Insomnia, unspecified - Insomnia, unspecified - termination clerk (current) use of anticoagulants - termination clerk (current) use of anticoagulants - Other specified postprocedural states - Other specified postprocedural states - Other stimulant abuse, uncomplicated - Other stimulant abuse, uncomplicated - Rheumatic disorders of both mitral and tricuspid valves - Rheumatic disorders of both mitral and tricuspid valves [email or web address]
[2024-11-03 09:43] LABS: BASOPHILS 0.5 % (0.1-1.2); EOSINOPHILS 2.8 % (0.7-5.8); LYMPHOCYTES 13.0 % (19.3-51.7); MCH 25.4 PG (25.6-32.2); MCHC 30.6 g/dL (32.2-35.5); MCV 83.3 fL (79.4-94.8); MONOCYTES 5.1 % (4.7-12.5); NEUTROPHILS 78.2 % (34.0-71.1); RBC 3.89 M/uL (3.93-5.22)
[2024-11-03] MEDS ORDERED: PREDNISONE20 MG PO (09:43)
[2024-11-03 10:00] LABS: ALT (SGPT) 17.0 U/L (14-59); AST (SGOT) 26.0 U/L (15-37); GLOMERULAR FILTRATION RATE,EST 76.0 mL/min (>60); PROTEIN, TOTAL 6.6 g/dL (6.4-8.2); UREA NITROGEN 11.0 mg/dL (7-18)
[2024-11-03 10:18] LABS: LACTIC ACID, BLOOD 1.0 mmol/L (0.4-2.0)
[2024-11-03 11:21] VITALS: BP 115/86
[2024-11-04] MEDS ORDERED: LASIX20 MG PO (11:15)
--- NOTE | 2024-11-07 09:08 | EKG ---
[facility] [address] [facility] [place] [address] Signed Sinus tachycardia Right atrial enlargement Right bundle branch block Left posterior fascicular block Bifascicular block Abnormal ECG When compared with ECG of 30-OCT-2024 09:08, Left posterior fascicular block is now present Confirmed by Darion Monaco MD ([id number]) on 11/07/2024 9:08:12 AM Electronically Signed By: DARION MONACO MD 11/07/24 0908 PATIENT NAME: HERMES RING Electrocardiogram DATE OF : 66 PHYSICIAN: DARION MONACO MD REPORT #: [id number] REPORT IS CONFIDENTIAL AND NOT TO BE RELEASED WITHOUT AUTHORIZATION
== END 2024-11-03 11:21 | disposition home or self-care (01) ==
LOC: ED 09:28
PROVIDERS: Emergency Medicine
DX: R06.02 Shortness of breath (principal); J44.9 Chronic obstructive pulmonary disease, unspecified; I50.9 Heart failure, unspecified; I25.2 Old myocardial infarction; Z79.82 Long term (current) use of aspirin; Z79.899 Other long term (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; Z87.891 Personal history of nicotine dependence
CPT/HCPCS: 36415; 71045; 80053; 83605; 83880; 84484; 85025; 93005; 93010; 99285-25

== ENCOUNTER 2024-11-06 23:13 | Emergency (ER) | payer OTHER ==
[~2024-11-06] VITALS: Ht 154.9 cm; Wt 85.2 kg
[~2024-11-06 23:13] MED LIST changes: +PREDNISONE20 MG PO
--- OUTSIDE RECORDS SUMMARY | 2024-11-06 23:20 | XMS ---
PreManage Notification: HERMES RING Security Senior Category Manager Events No recent Security Events currently on file CRITERIA MET - 6 ED Visits in 6 Months - [facility] - 2 Visits in 30 Days CARE PROVIDERS KALLIE EARLY [facility] 10/03/2024-Current PHONE: Unknown CELSA MINAYA Nurse Practitioner: Family Current PHONE: [phone] VANIA RODRIGUES Physician Factory Clerk Gracy COLLINS PHONE: [phone] MARK ANDREW Nurse Practitioner: Adult Health [facility] PHONE: [phone] Josy has no Care Guidelines for this patient. Won VISIT COUNT (12 MO.) 19 KARISSA [address]yer [address] [place] TOTAL 21 NOTE: Visits indicate total known visits. ED/UCC VISIT TRACKING (12 MO.) 11/06/2024 23:14 [facility] [place] TYPE: Emergency COMPLAINT: - ABD PAIN 11/04/2024 06:49 [facility] [place] TYPE: Emergency COMPLAINT: - ABDOMINAL PAIN DIAGNOSES: - Chronic obstructive pulmonary disease with (acute) exacerbation - senior living (current) use of aspirin - ocean transportation intermediary (current) use of systemic steroids - Shortness of breath 11/03/2024 09:28 [facility] [place] TYPE: Emergency COMPLAINT: - ALLERGIC REACTION DIAGNOSES: - Chronic obstructive pulmonary disease, unspecified - Heart failure, unspecified - senior living (current) use of aspirin - Old myocardial infarction - Other care home (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 - Personal history of nicotine dependence - Shortness of breath 10/30/2024 09:06 [facility] [place] TYPE: Emergency COMPLAINT: - CHEST PAIN DIAGNOSES: - Chest pain, unspecified - senior living (current) use of aspirin - 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 (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 10/25/2024 13:16 [facility] [place] TYPE: Emergency COMPLAINT: - CHEST PAIN DIAGNOSES: - Chronic obstructive pulmonary disease, unspecified - Heart failure, unspecified - Localized edema - ocean transportation intermediary (current) use of aspirin - Old myocardial infarction - Other care home (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 - Personal history of sudden cardiac arrest 10/23/2024 22:05 [facility] KAMLESH CHAN [place] TYPE: Emergency DIAGNOSES: - [...] Dyspnea, unspecified - Heart failure, unspecified - senior living (current) use of anticoagulants - Other care home (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 09/19/2024 17:06 [facility] [place] TYPE: Emergency COMPLAINT: - WEAKNESS DIAGNOSES: - Chronic obstructive pulmonary disease, unspecified - Heart failure, unspecified - Old myocardial infarction - Other care home (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 - Shortness of breath 09/11/2024 21:05 K[facility] [place] TYPE: Emergency COMPLAINT: - WEAKNESS DIAGNOSES: - Chronic obstructive pulmonary disease, unspecified - Heart failure, unspecified - Nausea with vomiting, unspecified - Noninfective gastroenteritis and colitis, unspecified - Old myocardial infarction - Other care home (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 07/06/2024 17:48 KARISSA [place] [...] infarction - Other chest pain - Other care home (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 02/18/2024 21:22 [facility] [place] TYPE: Emergency COMPLAINT: - SOB DIAGNOSES: - Chronic obstructive pulmonary disease, unspecified - Heart failure, unspecified - Old myocardial infarction - 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 (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 - Other pulmonary embolism without acute cor pulmonale - Shortness of breath 01/29/2024 22:42 [facility] [place] TYPE: Emergency COMPLAINT: - SOB 01/29/2024 10:35 [facility] [place] TYPE: Emergency COMPLAINT: - ABDOMINAL PAIN DIAGNOSES: - Bifascicular block - Chronic obstructive pulmonary disease, unspecified - Epigastric pain - Heart failure, unspecified - Localized swelling, mass and lump, head - 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 [place] TYPE: Emergency DIAGNOSES: - HEART PROBLEMS 12/07/2023 14:33 KARISSA [place] TYPE: Emergency COMPLAINT: - TROUBLE BREATHING Plus 1 More Visit INPATIENT VISIT TRACKING (12 MO.) 10/10/2024 02:34 [facility] [place] TYPE: Medical Surgical DIAGNOSES: - Acute [...] convulsions - Unspecified convulsions 01/31/2024 15:39 [facility] [place] TYPE: Medical [...] - Insomnia, unspecified - Insomnia, unspecified - ocean transportation intermediary (current) use of anticoagulants - ocean transportation intermediary (current) use of anticoagulants - Other specified postprocedural states - Other specified postprocedural states - Other stimulant abuse, uncomplicated - Other stimulant abuse, uncomplicated - Rheumatic disorders of both mitral and tricuspid valves - Rheumatic disorders of both mitral and tricuspid valves [email or web address]
[2024-11-06 23:25] LABS: BASOPHILS 0.2 % (0.1-1.2); EOSINOPHILS 0.5 % (0.7-5.8); LYMPHOCYTES 8.4 % (19.3-51.7); MCH 25.4 PG (25.6-32.2); MCHC 29.7 g/dL (32.2-35.5); MCV 85.6 fL (79.4-94.8); MONOCYTES 4.1 % (4.7-12.5); NEUTROPHILS 86.3 % (34.0-71.1); RBC 3.82 M/uL (3.93-5.22)
[2024-11-06] MEDS ORDERED: ALBUTEROL/IPRATROPIUM 3 ML NEB INH PRN (23:30)
[2024-11-06] MEDS ORDERED: LIDOCAINE & ANTACID 35 ML BTL PO ONE (23:45)
[2024-11-06] MEDS ORDERED: FAMOTIDINE 20 MG/ 2 ML VIAL IV ONE (23:45)
[2024-11-07 00:10] LABS: ALT (SGPT) 17.0 U/L (14-59); AST (SGOT) 20.0 U/L (15-37); GLOMERULAR FILTRATION RATE,EST 62.0 mL/min (>60); PROTEIN, TOTAL 7.1 g/dL (6.4-8.2); UREA NITROGEN 18.0 mg/dL (7-18)
[2024-11-07] MEDS ORDERED: FUROSEMIDE 100 MG/10 ML VIAL IV ONE (00:30)
[2024-11-07] MEDS ORDERED: GUAIFENESIN/DEXTROMETHORPHAN 5 ML SYRUP PO ONE (00:45)
[2024-11-07] MEDS ORDERED: POTASSIUM CHLORIDE 10 MEQ TABCR PO ONE ×2 (02:00→04:45)
[2024-11-07] MEDS ORDERED: POTASSIUM CHLORIDE 10 MEQ TABCR ONE (02:01)
[2024-11-07] MEDS ORDERED: KLOR-CON M2020 MEQ PO (04:25)
[2024-11-07 04:29] LABS: BLOOD/HGB, URINE NEGATIVE (Negative); KETONE, URINE TRACE (Negative); LEUK ESTERASE, URINE NEGATIVE (negative); NITRITE, URINE NEGATIVE (negative)
[2024-11-07 04:35] LABS: EPITHELIAL CELLS, URINE SQUAMOUS 1+ /lpf (0-1+)
[2024-11-07 04:36] LABS: BACTERIA, URINE 4+ /hpf (negative); CASTS, URINE NONE SEEN \\lpf; REFLEX CULTURE, URINE Yes (No)
[2024-11-07 04:46] LABS: AMPHETAMINES, URINE NEGATIVE (NEGATIVE); BARBITURATES, URINE NEGATIVE (NEGATIVE); BENZODIAZEPINE, URINE NEGATIVE (NEGATIVE); CANNABINOID, URINE NEGATIVE (NEGATIVE); COCAINE, URINE NEGATIVE (NEGATIVE); ECSTASY, URINE NEGATIVE (NEGATIVE); FENTANYL, URINE NEGATIVE (NEGATIVE); METHADONE, URINE NEGATIVE (NEGATIVE); OPIATES, URINE NEGATIVE (NEGATIVE); OXYCODONE, URINE NEGATIVE (NEGATIVE); PHENCYCLIDINE, URINE NEGATIVE (NEGATIVE)
[2024-11-07 05:15] VITALS: BP 109/71
--- NOTE | 2024-11-07 15:17 | EKG ---
[facility] [address] [facility] [place] [address] Signed Sinus tachycardia Possible Left atrial enlargement Right bundle branch block Left posterior fascicular block Bifascicular block Abnormal ECG When compared with ECG of 04-NOV-2024 06:58, No significant change was found Confirmed by Darion Monaco MD ([id number]) on 11/07/2024 3:17:38 PM Electronically Signed By: DARION MONACO MD 11/07/24 1517 PATIENT NAME: HERMES RING Electrocardiogram DATE OF : 66 PHYSICIAN: DARION MONACO MD REPORT #: [id number] REPORT IS CONFIDENTIAL AND NOT TO BE RELEASED WITHOUT AUTHORIZATION
== END 2024-11-07 05:15 | disposition home or self-care (01) ==
LOC: ED 23:13
PROVIDERS: Internal Medicine
DX: I50.9 Heart failure, unspecified (principal); J44.9 Chronic obstructive pulmonary disease, unspecified; Z79.899 Other long term (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; Z79.82 Long term (current) use of aspirin; Z79.52 Long term (current) use of systemic steroids
CPT/HCPCS: 36415; 71045; 80053; 80307; 81001; 83735; 83880; 84484; 85025; 87088; 93005; 93010; 94640; 96374; 96375; 99285-25; A9270; J1790; J1938

== ENCOUNTER 2024-11-30 15:41 | Emergency (ER) | payer OTHER ==
[~2024-11-30] VITALS: Ht 154.9 cm; Wt 50.0 kg
[~2024-11-30 15:41] MED LIST changes: +KLOR-CON M2020 MEQ PO
--- OUTSIDE RECORDS SUMMARY | 2024-11-30 15:47 | XMS ---
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 Won VISIT COUNT (12 MO.) 19 KARISSA Iyer [address] [place] TOTAL 21 NOTE: Visits indicate total known visits. ED/UCC VISIT TRACKING (12 MO.) 11/30/2024 15:41 [facility]SA [place] TYPE: Emergency COMPLAINT: - CHEST PAIN 11/06/2024 23:14 [facility] [place] TYPE: Emergency COMPLAINT: - ABD PAIN DIAGNOSES: - Chronic obstructive pulmonary disease, unspecified - Cough, unspecified - Heart failure, unspecified - terminologist (current) use of aspirin - detention (current) use of systemic steroids - Other longwall foreman (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 11/04/2024 06:49 [facility] [place] TYPE: Emergency COMPLAINT: - ABDOMINAL PAIN DIAGNOSES: - Chronic obstructive pulmonary disease with (acute) exacerbation - detention (current) use of aspirin - detention (current) use of systemic steroids - Shortness of breath 11/03/2024 09:28 [facility]SA [place] TYPE: Emergency COMPLAINT: - ALLERGIC REACTION DIAGNOSES: - Chronic obstructive pulmonary disease, unspecified - Heart failure, unspecified - detention (current) use of aspirin - Old myocardial infarction - Other longterm (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 - Personal history of nicotine dependence - Shortness of breath 10/30/2024 09:06 [facility]SA [place] TYPE: Emergency COMPLAINT: - CHEST PAIN DIAGNOSES: - Chest pain, unspecified - terminologist (current) use of aspirin - Other longwall foreman (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 10/25/2024 13:16 [facility] [place] TYPE: Emergency COMPLAINT: - CHEST PAIN DIAGNOSES: - Chronic obstructive pulmonary disease, unspecified - Heart failure, unspecified - Localized edema - detention (current) use of aspirin - Old myocardial infarction - Other longterm (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 - Personal history of sudden cardiac arrest 10/23/2024 22:05 [facility] [place] TYPE: Emergency DIAGNOSES: - Chest pain, [...] Dyspnea, unspecified - Heart failure, unspecified - detention (current) use of anticoagulants - Other longterm (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 09/19/2024 17:[address] [facility] [place] Ignacia [place]endo[place] TYPE: Emergency COMPLAINT: - WEAKNESS DIAGNOSES: - Chronic obstructive pulmonary disease, unspecified - Heart failure, unspecified - Old myocardial infarction - Other longwall foreman (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 - Shortness of breath 09/11/2024 21:[address] [facility] [place] TYPE: Emergency COMPLAINT: - WEAKNESS DIAGNOSES: - Chronic obstructive pulmonary disease, unspecified - Heart failure, unspecified - Nausea with vomiting, unspecified - Noninfective gastroenteritis and colitis, unspecified - Old myocardial infarction - Other longwall foreman (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 07/06/2024 17:[address] [facility] [address] [place] TYPE: Emergency COMPLAINT: - ARM PAIN DIAGNOSES: - Chronic obstructive pulmonary disease, unspecified - Contusion of right wrist, initial encounter - Heart failure, unspecified - Striking against or struck by other objects, initial encounter 03/20/2024 19:[address] [facility] [place] HNathen [place]endo[place] TYPE: Emergency COMPLAINT: - CHEST PAIN DIAGNOSES: - Chronic obstructive pulmonary disease, unspecified - Heart failure, unspecified - Old myocardial infarction - Other chest pain - Other longwall foreman (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 02/18/2024 21:[address] [facility] [address] [place] TYPE: Emergency COMPLAINT: - SOB DIAGNOSES: - Chronic obstructive pulmonary disease, unspecified - Heart failure, unspecified - Old myocardial infarction - Other longterm (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 - Other pulmonary embolism without acute cor pulmonale - Shortness of breath 01/29/2024 22:[address] [facility] [address] Lam [place] TYPE: Emergency COMPLAINT: - SOB 01/29/2024 10:[address] [facility] [address] Lam [place] TYPE: Emergency COMPLAINT: - ABDOMINAL PAIN DIAGNOSES: - Bifascicular block - Chronic obstructive pulmonary disease, unspecified - Epigastric pain - Heart failure, unspecified - Localized swelling, mass and lump, head - Other longterm (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 - Upper abdominal pain, unspecified 2024 05:40 [facility]ISSA [place] TYPE: Emergency COMPLAINT: - SHORTNESS OF BREATH DIAGNOSES: - Chronic obstructive pulmonary disease with (acute) lower respiratory infection - Heart failure, unspecified - Other longterm (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 - Pneumonia, unspecified organism - Shortness of breath 01/18/2024 16:45 [facility] [place] TYPE: Emergency DIAGNOSES: - HEART PROBLEMS Plus 1 More Visit INPATIENT VISIT TRACKING (12 MO.) 10/10/2024 02:34 [facility] [place] TYPE: Medical Surgical DIAGNOSES: - [...] convulsions - Unspecified convulsions 01/31/2024 15:39 [facility] [place] TYPE: Medical Surgical DIAGNOSES: - [...] - Insomnia, unspecified - Insomnia, unspecified - terminologist (current) use of anticoagulants - detention (current) use of anticoagulants - Other specified postprocedural states - Other specified postprocedural states - Other stimulant abuse, uncomplicated - Other stimulant abuse, uncomplicated - Rheumatic disorders of both mitral and tricuspid valves - Rheumatic disorders of both mitral and tricuspid valves [email or web address]
[2024-11-30] MEDS ORDERED: ASPIRIN 81 MG CHEW PO ONE (16:00)
[2024-11-30] MEDS ORDERED: NITROGLYCERIN 0.4 MG SUBL SL PRN (16:00)
[2024-11-30 16:01] LABS: BASOPHILS 0.3 % (0.1-1.2); EOSINOPHILS 1.9 % (0.7-5.8); LYMPHOCYTES 25.4 % (19.3-51.7); MCH 25.7 PG (25.6-32.2); MCHC 30.7 g/dL (32.2-35.5); MCV 83.8 fL (79.4-94.8); MONOCYTES 7.2 % (4.7-12.5); NEUTROPHILS 64.9 % (34.0-71.1); RBC 4.39 M/uL (3.93-5.22)
[2024-11-30 16:27] LABS: ALT (SGPT) 25.0 U/L (14-59); AST (SGOT) 32.0 U/L (15-37); GLOMERULAR FILTRATION RATE,EST 82.0 mL/min (>60); PROTEIN, TOTAL 7.2 g/dL (6.4-8.2); UREA NITROGEN 12.0 mg/dL (7-18)
[2024-11-30] MEDS ORDERED: FUROSEMIDE 100 MG/10 ML VIAL IV ONE (16:45)
[2024-11-30 17:43] LABS: AMPHETAMINES, URINE NEGATIVE (NEGATIVE); BARBITURATES, URINE NEGATIVE (NEGATIVE); BENZODIAZEPINE, URINE NEGATIVE (NEGATIVE); CANNABINOID, URINE NEGATIVE (NEGATIVE); COCAINE, URINE NEGATIVE (NEGATIVE); ECSTASY, URINE NEGATIVE (NEGATIVE); FENTANYL, URINE NEGATIVE (NEGATIVE); METHADONE, URINE NEGATIVE (NEGATIVE); OPIATES, URINE NEGATIVE (NEGATIVE); OXYCODONE, URINE NEGATIVE (NEGATIVE); PHENCYCLIDINE, URINE NEGATIVE (NEGATIVE)
[2024-11-30 18:16] VITALS: BP 122/96
--- NOTE | 2024-11-30 19:53 | EKG ---
[facility] [address] [facility] [place] [address] Signed Sinus tachycardia Biatrial enlargement Right bundle branch block Abnormal ECG When compared with ECG of 06-NOV-2024 23:28, Non-specific change in ST segment in Inferior leads T wave inversion no longer evident in Inferior leads T wave inversion less evident in Anterior leads Confirmed by Christiana Gama DO ([id number]) on 11/30/2024 7:53:12 PM Electronically Signed By: CHRISTIANA GAMA DO 11/30/241952 PATIENT NAME: HERMES RING Electrocardiogram DATE OF : 66 PHYSICIAN: CHRISTIANA GAMA DO REPORT #: [id number] REPORT IS CONFIDENTIAL AND NOT TO BE RELEASED WITHOUT AUTHORIZATION
== END 2024-11-30 18:17 | disposition home or self-care (01) ==
LOC: ED 15:41
PROVIDERS: Emergency Medicine
DX: I50.9 Heart failure, unspecified (principal); I25.2 Old myocardial infarction; J44.9 Chronic obstructive pulmonary disease, unspecified; Z79.82 Long term (current) use of aspirin; Z79.52 Long term (current) use of systemic steroids; Z79.899 Other long term (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
CPT/HCPCS: 36415; 71045; 80053; 80307; 83735; 83880; 84484; 85025; 93005; 93010; 96374; 99285-25; A9270; J1938

== ENCOUNTER 2024-12-19 16:27 | Emergency (ER) | payer OTHER ==
--- OUTSIDE RECORDS SUMMARY | 2024-12-19 16:34 | XMS ---
PreManage Notification: HERMES RING Security Rn Allergy Events No recent Security Events currently on file CRITERIA MET - 6 ED Visits in 6 Months - [facility] - 2 Visits in 30 Days CARE PROVIDERS KALLIE EARLY [facility] 10/03/2024-Current PHONE: Unknown CELSA MINAYA Nurse Practitioner: Family Current PHONE: [phone] VANIA RODRIGUES Physician Driller And Broacher Gracy COLLINS PHONE: [phone] MARK ANDREW Nurse Practitioner: Adult Health [facility] PHONE: [phone] Josy has no Care Guidelines for this patient. Won VISIT COUNT (12 MO.) 19 KARISSA Iyer [address] [place] TOTAL 21 NOTE: Visits indicate total known visits. 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 [facility] [place] TYPE: Emergency COMPLAINT: - ABD PAIN DIAGNOSES: - Chronic obstructive pulmonary disease, unspecified - Cough, unspecified - Heart failure, unspecified - retirement (current) use of aspirin - truck terminal manager (current) use of systemic steroids - Other residential (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 11/04/2024 06:49 KARISSA [place] TYPE: Emergency COMPLAINT: - ABDOMINAL PAIN DIAGNOSES: - Chronic obstructive pulmonary disease with (acute) exacerbation - truck terminal manager (current) use of aspirin - retirement (current) use of systemic steroids - Shortness of breath 11/03/2024 09:28 [facility] [place] TYPE: Emergency COMPLAINT: - ALLERGIC REACTION DIAGNOSES: - Chronic obstructive pulmonary disease, unspecified - Heart failure, unspecified - truck terminal manager (current) use of aspirin - Old myocardial infarction - Other residential (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 - Personal history of nicotine dependence - Shortness of breath 10/30/2024 09:06 K[facility]SA [place] TYPE: Emergency COMPLAINT: - CHEST PAIN DIAGNOSES: - Chest pain, unspecified - truck 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 manager (current) 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 [facility] [place] TYPE: Emergency COMPLAINT: - VOMITING 10/03/2024 [...] Dyspnea, unspecified - Heart failure, unspecified - retirement (current) use of anticoagulants - Other residential (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 09/19/2024 17:06 KARISSA [place] TYPE: Emergency COMPLAINT: - WEAKNESS DIAGNOSES: - Chronic obstructive pulmonary disease, unspecified - Heart failure, unspecified - Old myocardial infarction - Other residential (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 - Shortness of breath 09/11/2024 21:05 K[facility]ISSA [place] TYPE: Emergency COMPLAINT: - WEAKNESS DIAGNOSES: - Chronic obstructive pulmonary disease, unspecified - Heart failure, unspecified - Nausea with vomiting, unspecified - Noninfective gastroenteritis and colitis, unspecified - Old myocardial infarction - Other long term care pharmacist (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 07/06/2024 17:48 KARISSA Powell [place] TYPE: Emergency COMPLAINT: - ARM PAIN DIAGNOSES: - Chronic obstructive pulmonary disease, unspecified - Contusion of right wrist, initial encounter - Heart failure, unspecified - Striking against or struck by other objects, initial encounter 03/20/2024 19:[address] [facility] [address] [facility] [place] TYPE: Emergency COMPLAINT: - CHEST PAIN DIAGNOSES: - Chronic obstructive pulmonary disease, unspecified - Heart failure, unspecified - Old myocardial infarction - Other chest pain - Other long term care pharmacist (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 02/18/2024 21:[address] [facility] [address] [facility] [place] TYPE: Emergency COMPLAINT: - SOB DIAGNOSES: - Chronic obstructive pulmonary disease, unspecified - Heart failure, unspecified - Old myocardial infarction - Other long term care pharmacist (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 - Other pulmonary embolism without acute cor pulmonale - Shortness of breath 01/29/2024 22:[address] [facility] [address] [facility] [place] TYPE: Emergency COMPLAINT: - SOB 01/29/2024 10:35 K[facility]ISAS Powell [place] TYPE: Emergency COMPLAINT: - ABDOMINAL PAIN DIAGNOSES: - Bifascicular block - Chronic obstructive pulmonary disease, unspecified - Epigastric pain - Heart failure, unspecified - Localized swelling, mass and lump, head - Other long term care pharmacist (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 - Upper abdominal pain, unspecified 2024 05:40 KARISSA [place] TYPE: Emergency COMPLAINT: - SHORTNESS OF BREATH DIAGNOSES: - Chronic obstructive pulmonary disease with (acute) lower respiratory infection - Heart failure, unspecified - Other long term care pharmacist (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 - Pneumonia, unspecified organism - Shortness of breath Plus 1 More Visit INPATIENT VISIT TRACKING (12 MO.) 10/10/2024 02:34 [facility] [place] TYPE: Medical Surgical DIAGNOSES: - [...] - Urinary tract infection, site not specified [email or web address]
[2024-12-19] MEDS ORDERED: ALBUTEROL/IPRATROPIUM 3 ML NEB INH PRN (16:45)
[2024-12-19 16:53] LABS: BASOPHILS 0.3 % (0.1-1.2); EOSINOPHILS 1.1 % (0.7-5.8); LYMPHOCYTES 18.8 % (19.3-51.7); MCH 26.7 PG (25.6-32.2); MCHC 30.7 g/dL (32.2-35.5); MCV 87.0 fL (79.4-94.8); MONOCYTES 6.2 % (4.7-12.5); NEUTROPHILS 73.2 % (34.0-71.1); RBC 4.15 M/uL (3.93-5.22)
[2024-12-19] MEDS ORDERED: FUROSEMIDE 100 MG/10 ML VIAL IV ONE (17:00)
[2024-12-19 17:19] LABS: ALT (SGPT) 20.0 U/L (14-59); AST (SGOT) 30.0 U/L (15-37); GLOMERULAR FILTRATION RATE,EST 71.0 mL/min (>60); PROTEIN, TOTAL 7.0 g/dL (6.4-8.2); UREA NITROGEN 16.0 mg/dL (7-18)
[2024-12-19 19:15] VITALS: BP 121/88
[2024-12-19] MEDS ORDERED: PHYTONADIONE 1 MG in DEXTROSE 5% 50 ML IV ONE (19:15)
--- NOTE | 2024-12-21 11:47 | EKG ---
[facility] [address] [facility] [place] [address] Signed Sinus tachycardia Right atrial enlargement Low voltage QRS Right bundle branch block Abnormal ECG When compared with ECG of 30-NOV-2024 15:48, No significant change was found Confirmed by SHUKRI WEST MD ([id number]) on 12/21/2024 11:46:53 AM Electronically Signed By: SHUKRI WEST 12/21/24 1147 PATIENT NAME: HERMES RING JESSICA Electrocardiogram DATE OF : 66 PHYSICIAN: SHUKRI WEST REPORT #: [id number] REPORT IS CONFIDENTIAL AND NOT TO BE RELEASED WITHOUT AUTHORIZATION
== END 2024-12-19 19:21 | disposition home or self-care (01) ==
LOC: ED 16:27
PROVIDERS: Emergency Medicine
DX: I50.9 Heart failure, unspecified (principal); I25.2 Old myocardial infarction; J44.9 Chronic obstructive pulmonary disease, unspecified; Z86.711 Personal history of pulmonary embolism; Z79.82 Long term (current) use of aspirin; Z79.899 Other long term (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
CPT/HCPCS: 36415; 71045; 80053; 82140; 83735; 83880; 84484; 85025; 85060; 93005; 93010; 96374; 99285-25; J1938

== ENCOUNTER 2024-12-23 15:19 | Emergency (ER) | payer OTHER ==
[~2024-12-23] VITALS: Ht 154.9 cm; Wt 54.0 kg
--- OUTSIDE RECORDS SUMMARY | 2024-12-23 15:24 | XMS ---
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 Won VISIT COUNT (12 MO.) 20 KARISSA Iyer [address] [place] TOTAL 22 NOTE: Visits indicate total known visits. ED/UCC VISIT TRACKING (12 MO.) 12/23/2024 15:20 [facility]ISSA [place] TYPE: Emergency COMPLAINT: - SHORTNESS OF BREATH 12/19/2024 16:28 KARISSA [place] TYPE: Emergency COMPLAINT: - SHORTNESS OF BREATH DIAGNOSES: - Chronic obstructive pulmonary disease, unspecified - Heart failure, unspecified - [facility] (current) use of aspirin - Old myocardial infarction - Other manager long term care (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 - Personal history of pulmonary embolism - Shortness of breath 11/30/2024 15:[address] [facility] [address] [facility] [place] TYPE: Emergency COMPLAINT: - CHEST PAIN DIAGNOSES: - Chest pain, unspecified - Chronic obstructive pulmonary disease, unspecified - Heart failure, unspecified - terminologist (current) use of aspirin - [facility] (current) use of systemic steroids - Old myocardial infarction - Other manager long term care (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 11/06/2024 23:14 KARISSA [place] TYPE: Emergency COMPLAINT: - ABD PAIN DIAGNOSES: - Chronic obstructive pulmonary disease, unspecified - Cough, unspecified - Heart failure, unspecified - terminologist (current) use of aspirin - [facility] (current) use of systemic steroids - Other intermediate (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 11/04/2024 06:49 [facility]ISSA [place] TYPE: Emergency COMPLAINT: - ABDOMINAL PAIN DIAGNOSES: - Chronic obstructive pulmonary disease with (acute) exacerbation - [facility] (current) use of aspirin - terminologist (current) use of systemic steroids - Shortness of breath 11/03/2024 09:28 KARISSA [place] TYPE: Emergency COMPLAINT: - ALLERGIC REACTION DIAGNOSES: - Chronic obstructive pulmonary disease, unspecified - Heart failure, unspecified - [facility] (current) use of aspirin - Old myocardial infarction - Other intermediate (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 - Personal history of nicotine dependence - Shortness of breath 10/30/2024 09:06 K[facility] [place] TYPE: Emergency COMPLAINT: - CHEST PAIN DIAGNOSES: - Chest pain, unspecified - terminologist (current) use of aspirin - Other intermediate (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 10/25/2024 13:16 K[facility] [place] TYPE: Emergency COMPLAINT: - CHEST PAIN DIAGNOSES: - Chronic obstructive pulmonary disease, unspecified - Heart failure, unspecified - Localized edema - [facility] (current) use of aspirin - Old myocardial infarction - Other intermediate (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 - Personal history of sudden cardiac arrest 10/23/2024 22:05 [facility] K[facility]LESH [place] TYPE: Emergency DIAGNOSES: - [...] Dyspnea, unspecified - Heart failure, unspecified - terminologist (current) use of anticoagulants - Other intermediate (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 09/19/2024 17:06 KARISSA [place] TYPE: Emergency COMPLAINT: - WEAKNESS DIAGNOSES: - Chronic obstructive pulmonary disease, unspecified - Heart failure, unspecified - Old myocardial infarction - Other manager long term care (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 - Shortness of breath 09/11/2024 21:05 KARISSA Powell [place] TYPE: Emergency COMPLAINT: - WEAKNESS DIAGNOSES: - Chronic obstructive pulmonary disease, unspecified - Heart failure, unspecified - Nausea with vomiting, unspecified - Noninfective gastroenteritis and colitis, unspecified - Old myocardial infarction - Other manager long term care (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 07/06/2024 17:[address] [facility] [address] [facility] [place] TYPE: Emergency COMPLAINT: - ARM PAIN DIAGNOSES: - Chronic obstructive pulmonary disease, unspecified - Contusion of right wrist, initial encounter - Heart failure, unspecified - Striking against or struck by other objects, initial encounter 03/20/2024 19:[address] [facility] [address] [facility] [place] TYPE: Emergency COMPLAINT: - CHEST PAIN DIAGNOSES: - Chronic obstructive pulmonary disease, unspecified - Heart failure, unspecified - Old myocardial infarction - Other chest pain - Other intermediate (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 02/18/2024 21:[address] [facility] [address] [facility] [place] [place] TYPE: Emergency COMPLAINT: - SOB DIAGNOSES: - Chronic obstructive pulmonary disease, unspecified - Heart failure, unspecified - Old myocardial infarction - Other manager long term care (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 - Other pulmonary embolism [...] drug therapy - Upper abdominal pain, unspecified Plus 2 More Visits INPATIENT VISIT TRACKING (12 MO.) 10/10/2024 02:34 [facility] [place] TYPE: Medical Surgical DIAGNOSES: - [...] Unspecified convulsions - Unspecified convulsions 01/31/2024 15:39 [facility] [place] TYPE: Medical Surgical DIAGNOSES: - Acute [...] - Urinary tract infection, site not specified [email or web address]
[2024-12-23 15:30] LABS: BASOPHILS 0.5 % (0.1-1.2); EOSINOPHILS 1.6 % (0.7-5.8); LYMPHOCYTES 20.7 % (19.3-51.7); MCH 27.1 PG (25.6-32.2); MCHC 29.8 g/dL (32.2-35.5); MCV 90.7 fL (79.4-94.8); MONOCYTES 6.4 % (4.7-12.5); NEUTROPHILS 70.4 % (34.0-71.1); RBC 4.21 M/uL (3.93-5.22)
[2024-12-23] MEDS ORDERED: FUROSEMIDE 100 MG/10 ML VIAL IV ONE (15:30)
[2024-12-23 15:52] LABS: ALT (SGPT) 22.0 U/L (14-59); AST (SGOT) 31.0 U/L (15-37); GLOMERULAR FILTRATION RATE,EST 67.0 mL/min (>60); PROTEIN, TOTAL 6.6 g/dL (6.4-8.2); UREA NITROGEN 12.0 mg/dL (7-18)
[2024-12-23] MEDS ORDERED: LASIX40 MG PO (16:50)
[2024-12-23 17:10] VITALS: BP 117/90
--- NOTE | 2024-12-24 21:25 | EKG ---
[facility] [address] [facility] [place] [address] Signed Sinus tachycardia Left atrial enlargement Right bundle branch block Left posterior fascicular block Bifascicular block Abnormal ECG When compared with ECG of 19-DEC-2024 16:43, Nonspecific T wave abnormality, worse in Inferior leads Confirmed by Judi Meyers MD () on 12/24/2024 9:24:54 PM Electronically Signed By: JUDI MEYERS MD 12/24/242124 PATIENT NAME: HERMES RING Electrocardiogram DATE OF : 66 PHYSICIAN: JUDI MEYERS MD REPORT #: [id number] REPORT IS CONFIDENTIAL AND NOT TO BE RELEASED WITHOUT AUTHORIZATION
== END 2024-12-23 17:40 | disposition home or self-care (01) ==
LOC: ED 15:19
PROVIDERS: Emergency Medicine
DX: R60.1 Generalized edema (principal); I50.9 Heart failure, unspecified; I25.2 Old myocardial infarction; J44.9 Chronic obstructive pulmonary disease, unspecified; Z86.711 Personal history of pulmonary embolism; Z79.82 Long term (current) use of aspirin; Z79.899 Other long term (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
CPT/HCPCS: 36415; 71045; 80053; 83880; 84484; 85025; 85060; 96374; 99285-25; J1938

== ENCOUNTER 2025-02-19 00:07 | Emergency (ER) | payer OTHER ==
[~2025-02-19] VITALS: Ht 154.9 cm; Wt 55.1 kg
--- OUTSIDE RECORDS SUMMARY | 2025-02-19 00:08 | XMS ---
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 Won VISIT COUNT (12 MO.) 17 [facility] TOTAL 18 NOTE: Visits indicate total known visits. ED/UCC VISIT TRACKING (12 MO.) 02/19/2025 00:08 [facility] [place] TYPE: Emergency COMPLAINT: - FEVER 12/23/2024 15:20 [facility] [place] TYPE: Emergency COMPLAINT: - SHORTNESS OF BREATH DIAGNOSES: - Chronic obstructive pulmonary disease, unspecified - Generalized edema - Heart failure, unspecified - termite treater (current) use of aspirin - Old myocardial infarction - Other assisted (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 - Personal history of pulmonary embolism - Shortness of breath 12/19/2024 16:28 [facility] [place] TYPE: Emergency COMPLAINT: - SHORTNESS OF BREATH DIAGNOSES: - Chronic obstructive pulmonary disease, unspecified - Heart failure, unspecified - assisted (current) use of aspirin - Old myocardial infarction - Other assisted (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 - Personal history of pulmonary embolism - Shortness of breath 11/30/2024 15:41 [facility] [place] TYPE: Emergency COMPLAINT: - CHEST PAIN DIAGNOSES: - Chest pain, unspecified - Chronic obstructive pulmonary disease, unspecified - Heart failure, unspecified - termite treater (current) use of aspirin - termite treater (current) use of systemic steroids - Old myocardial infarction - Other long term acute care registered nurse (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 11/06/2024 23:14 [facility] [place] TYPE: Emergency COMPLAINT: - ABD PAIN DIAGNOSES: - Chronic obstructive pulmonary disease, unspecified - Cough, unspecified - Heart failure, unspecified - assisted (current) use of aspirin - termite treater (current) use of systemic steroids - Other long term acute care registered nurse (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 11/04/2024 06:49 [facility] [place] TYPE: Emergency COMPLAINT: - ABDOMINAL PAIN DIAGNOSES: - Chronic obstructive pulmonary disease with (acute) exacerbation - termite treater (current) use of aspirin - termite treater (current) use of systemic steroids - Shortness of breath 11/03/2024 09:28 [facility] [place] TYPE: Emergency COMPLAINT: - ALLERGIC REACTION DIAGNOSES: - Chronic obstructive pulmonary disease, unspecified - Heart failure, unspecified - assisted (current) use of aspirin - Old myocardial infarction - Other assisted (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 - Personal history of nicotine dependence - Shortness of breath 10/30/2024 09:06 [facility] [place] TYPE: Emergency COMPLAINT: - CHEST PAIN DIAGNOSES: - Chest pain, unspecified - termite treater (current) use of aspirin - Other long term acute care registered nurse (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 10/25/2024 13:16 [facility] [place] TYPE: Emergency COMPLAINT: - CHEST PAIN DIAGNOSES: - Chronic obstructive pulmonary disease, unspecified - Heart failure, unspecified - Localized edema - assisted (current) use of aspirin - Old myocardial infarction - Other assisted (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 - Personal history of sudden cardiac arrest 10/23/2024 22:05 [facility] [place] TYPE: Emergency DIAGNOSES: - Chest pain, [...] Dyspnea, unspecified - Heart failure, unspecified - termite treater (current) use of anticoagulants - Other assisted (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 09/19/2024 17:06 [facility] [place] TYPE: Emergency COMPLAINT: - WEAKNESS DIAGNOSES: - Chronic obstructive pulmonary disease, unspecified - Heart failure, unspecified - Old myocardial infarction - Other long term acute care registered nurse (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 - Shortness of breath 09/11/2024 21:05 [facility] [place] TYPE: Emergency COMPLAINT: - WEAKNESS DIAGNOSES: - Chronic obstructive pulmonary disease, unspecified - Heart failure, unspecified - Nausea with vomiting, unspecified - Noninfective gastroenteritis and colitis, unspecified - Old myocardial infarction - Other assisted (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 07/06/2024 17:48 [facility] [place] [facility] [place] TYPE: Emergency COMPLAINT: - ARM PAIN DIAGNOSES: - Chronic obstructive pulmonary disease, unspecified - Contusion of right wrist, initial encounter - Heart failure, unspecified - Striking against or struck by other objects, initial encounter 03/20/2024 19:43 [facility] [place] TYPE: Emergency COMPLAINT: - CHEST PAIN DIAGNOSES: - Chronic obstructive pulmonary disease, unspecified - Heart failure, unspecified - Old myocardial infarction - Other chest pain - Other assisted (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 INPATIENT VISIT TRACKING (12 MO.) 10/10/2024 02:34 [...] shock - Unspecified convulsions - Unspecified convulsions [email or web address]
[2025-02-19 00:44] LABS: BASOPHILS 0.3 % (0.1-1.2); EOSINOPHILS 2.2 % (0.7-5.8); LYMPHOCYTES 8.1 % (19.3-51.7); MCH 28.2 PG (25.6-32.2); MCHC 32.5 g/dL (32.2-35.5); MCV 86.7 fL (79.4-94.8); MONOCYTES 5.8 % (4.7-12.5); NEUTROPHILS 83.2 % (34.0-71.1); RBC 4.51 M/uL (3.93-5.22)
[2025-02-19 00:49] LABS: ALT (SGPT) 24.0 U/L (14-59); AST (SGOT) 26.0 U/L (15-37); GLOMERULAR FILTRATION RATE,EST 63.0 mL/min (>60); PROTEIN, TOTAL 7.6 g/dL (6.4-8.2); UREA NITROGEN 15.0 mg/dL (7-18)
[2025-02-19 00:52] LABS: LACTIC ACID, BLOOD 0.7 mmol/L (0.4-2.0)
[2025-02-19] MEDS ORDERED: ACETAMINOPHEN 325 MG TAB PO ONE (01:45)
[2025-02-19 02:50] LABS: BLOOD/HGB, URINE NEGATIVE (Negative); KETONE, URINE NEGATIVE (Negative); LEUK ESTERASE, URINE NEGATIVE (negative); NITRITE, URINE NEGATIVE (negative)
[2025-02-19 03:05] LABS: AMPHETAMINES, URINE NEGATIVE (NEGATIVE); BARBITURATES, URINE NEGATIVE (NEGATIVE); BENZODIAZEPINE, URINE NEGATIVE (NEGATIVE); CANNABINOID, URINE NEGATIVE (NEGATIVE); COCAINE, URINE NEGATIVE (NEGATIVE); ECSTASY, URINE NEGATIVE (NEGATIVE); FENTANYL, URINE NEGATIVE (NEGATIVE); METHADONE, URINE NEGATIVE (NEGATIVE); OPIATES, URINE NEGATIVE (NEGATIVE); OXYCODONE, URINE NEGATIVE (NEGATIVE); PHENCYCLIDINE, URINE NEGATIVE (NEGATIVE)
[2025-02-19 03:06] LABS: CORONAVIRUS COVID-19 AG NEGATIVE (NEGATIVE)
[2025-02-19] MEDS ORDERED: OSELTAMIVIR PHOSPHATE 75 MG HOME.PACK PO ONE (04:00)
[2025-02-19 04:20] VITALS: BP 87/51
--- NOTE | 2025-02-21 22:09 | EKG ---
[facility] [address] [place] [address] Signed Sinus tachycardia Right bundle branch block Left posterior fascicular block Bifascicular block Abnormal ECG When compared with ECG of 23-DEC-2024 15:29, No significant change was found Confirmed by Judi Meyers MD () on 02/21/2025 10:09:29 PM Electronically Signed By: JUDI MEYERS MD 02/21/25 2209 PATIENT NAME: HERMES RING Electrocardiogram DATE OF : 66 PHYSICIAN: JUDI MEYERS MD REPORT #: [id number] REPORT IS CONFIDENTIAL AND NOT TO BE RELEASED WITHOUT AUTHORIZATION
== END 2025-02-19 04:20 | disposition home or self-care (01) ==
LOC: ED 00:07
PROVIDERS: Internal Medicine
DX: J10.1 Influenza due to other identified influenza virus with other respiratory manifestations (principal); I50.9 Heart failure, unspecified; J44.9 Chronic obstructive pulmonary disease, unspecified
CPT/HCPCS: 36415; 71045; 80053; 80307; 81001; 81003; 83605; 83880; 85025; 87040; 93005; 93010; 99284-25; A9270